=== PATIENT | female | born 1985 | race Caucasian/White ===

== ENCOUNTER 2016-06-15 10:25 | Emergency (ER) | payer SELFPAY ==
--- NOTE | 2016-06-15 10:41 | ER Document Report ---
ED Medical Screen (RME) - General Chief Complaint: Vaginal Discharge Stated Complaint: IUD CONCERNS Notes: Patient says that she is having "issues" with her IUD. She is having some spotting as well as discharge and wishes to have the IUD removed. She has a 5 year IUD placed in 2013. Was seen here in January for similar problems. Patient says the IUD string is no longer visible. Has some urinary frequency. No fevers. On no regular prescription medications. TRAVEL OUTSIDE OF THE [place] IN LAST 30 DAYS: No - Related Data Allergies/Adverse Reactions: ondansetron HCl [From Zofran] Allergy (Verified 06/15/16 10:26) Penicillins Allergy (Verified 06/15/16 10:26) Tetanus Vaccines and Toxoid [Tetanus] Allergy (Verified 06/15/16 10:26) Past Medical History Renal/ Medical History: Reports: Hx Ovarian Cysts, Hx Pelvic Inflammatory Disease. Denies: Hx Peritoneal Dialysis Past Surgical History: Reports: Hx Dilation and Curettage - Immunizations Immunizations up to date: Yes Hx Diphtheria, Pertussis, Tetanus Vaccination: Yes
[2016-06-15 11:08] LABS: APPEARANCE,URINE CLEAR; BILIRUBIN,URINE NEGATIVE (NEGATIVE); GLUCOSE, URINE NEGATIVE (NEGATIVE); KETONES,URINE NEGATIVE (NEGATIVE); LEUKOCYTE ESTERASE,URINE NEGATIVE (NEGATIVE); NITRITE,URINE NEGATIVE (NEGATIVE); PROTEIN,URINE NEGATIVE (NEGATIVE); URINE SPECIFIC GRAVITY 1.016; UROBILINOGEN,URINE NEGATIVE mg/dL (<2.0)
--- NOTE | 2016-06-15 11:46 | ER Document Report ---
ED GI/ - General Mode of Arrival: Ambulatory Information source: Patient TRAVEL OUTSIDE OF THE [place] IN LAST 30 DAYS: No - HPI Patient complains to provider of: Abdominal pain, Vaginal bleeding - "spotting" , Vaginal discharge - white and thick, Vaginal pain - "cramping" Onset: Other - 2 months ago Location: Vaginal Vaginal bleeding (Compared to normal period): Spotting Associated symptoms: Other - see notes above <MARIA ELENA HIRSCH - Last Filed: 06/15/16 13:33> <AMBROSIO THACKER - Last Filed: 06/15/16 15:53> - General Chief Complaint: Vaginal Discharge Stated Complaint: IUD CONCERNS Notes: 30 year old female presents to the ED complaining of abdominal pain, distention , vaginal spotting, cramping, and discharge (white and thick) that has been present for the past 2 months secondary to a problems related to her IUD. Patient reports that she had her first IUD in 2006 and did not have a problem for the 7 years that she had it. Patient elected to change the IUD for a 5 year device and reports vaginal bleeding for 6-8 months following the implant. Patient reports that the first IUD had "hormones" while the new one does not. Patient states that she can no longer feel the string of the IUD and reports that she does not have a live hanger to follow up with. Patient denies any fever. Patient additionally expresses concern over her gallbladder and reports that she had a bile duct obstruction (secondary to gallstones) that was emergently removed, but states that she still has her gallbladder and is causing her to have bouts of nausea and discomfort regularly. Patient wants to electively have her gallbladder removed. (MARIA ELENA HIRSCH) - Related Data Allergies/Adverse Reactions: amoxicillin Allergy (Verified 06/15/16 11:34) codeine Allergy (Verified 06/15/16 15:34) ondansetron HCl [From Zofran] Allergy (Verified 06/15/16 10:26) Penicillins Allergy (Verified 06/15/16 10:26) Tetanus Vaccines and Toxoid [Tetanus] Allergy (Verified 06/15/16 10:26) Past Medical History - General Information source: Patient - Social History Smoking Status: Current Every Day Smoker Chew tobacco use (# tins/day): No Frequency of alcohol use: None Drug Abuse: None Family History: Reviewed & Not Pertinent Patient has suicidal ideation: No Patient has homicidal ideation: No Renal/ Medical History: Reports: Hx Ovarian Cysts, Hx Pelvic Inflammatory Disease. Denies: Hx Peritoneal Dialysis GI Medical History: Reports: Other - cholelithiasis Past Surgical History: Reports: Hx Abdominal Surgery - removal of gallstone that was obstructing patient's bile duct, Hx Dilation and Curettage - Immunizations Immunizations up to date: Yes Hx Diphtheria, Pertussis, Tetanus Vaccination: Yes <MARIA ELENA HIRSCH - Last Filed: 06/15/16 13:33> Review of Systems - Review of Systems Constitutional: No symptoms reported. denies: Fever EENT: No symptoms reported Cardiovascular: No symptoms reported Respiratory: No symptoms reported Gastrointestinal: See HPI, Abdomen distended, Abdominal pain Genitourinary: No symptoms reported Female Genitourinary: See HPI, Vaginal discharge - white and thick, Vaginal bleeding - "spotting", Other - vaginal cramping Musculoskeletal: No symptoms reported Skin: No symptoms reported Hematologic/Lymphatic: No symptoms reported Neurological/Psychological: No symptoms reported -: Yes All other systems reviewed and negative <MARIA ELENA HIRSCH - Last Filed: 06/15/16 13:33> Physical Exam - General General appearance: Alert In distress: None - HEENT Head: Normocephalic, Atraumatic Eyes: Normal Extraocular movements intact: Yes Pupils: PERRL - Respiratory Respiratory status: No respiratory distress Breath sounds: Normal - Cardiovascular Rhythm: Regular Heart sounds: Normal auscultation - Abdominal Inspection: Normal Tenderness: Nontender - Genitourinary External exam: Normal Speculum exam: Vaginal discharge - white mucus, Other - Mild friability. IUD string is not visualized. Bimanuel exam: Other - Uterus is retroflexed - Back Back: Normal - Extremities General upper extremity: Normal inspection, Normal ROM General lower extremity: Normal inspection, Normal ROM - Neurological Neuro grossly intact: Yes Cognition: Normal Orientation: AAOx4 Maciej Coma Scale Eye Opening: Spontaneous [place] Coma Scale Verbal: Oriented [place] Coma Scale Motor: Obeys Commands Maciej Coma Scale Total: 15 Speech: Normal - Psychological Associated symptoms: Normal affect, Normal mood - Skin Skin Temperature: Warm Skin Moisture: Dry Skin Color: Normal <MARIA ELENA HIRSCH - Last Filed: 06/15/16 13:33> Course - Consults Grocery Specialist Time consulted: 13:28 <MARIA ELENA HIRSCH - Last Filed: 06/15/16 13:33> - Diagnostic Test Radiology reviewed: Image reviewed, Reports reviewed <AMBROSIO THACKER - Last Filed: 06/15/16 15:53> - Diagnostic Test Radiology results interpreted by me: 06/15/16 13:26 Appears that the IUD has migrated into the pelvis further. I have placed a call into Dr. Min Barrios on-call for [employer] as she does not currently have a physician. 06/15/16 13:28 (AMBROSIO THACKER) - Consults Grocery Specialist Reason for consultation: 06/15/16 13:28 Grocery Specialist was called to paged Dr. Barrios salon manager for OB. (MARIA ELENA HIRSCH) Discharge <MARIA ELENA HIRSCH - Last Filed: 06/15/16 13:33> <AMBROSIO THACKER - Last Filed: 06/15/16 15:53> - Discharge Clinical Impression: Pelvic pain, IUD mechanical complication Condition: Good Disposition: HOME, SELF-CARE Instructions: Abdominal Pain ([facility]) Additional Instructions: Call tomorrow to arrange follow-up for IUD removal. Return for fever or worsening otherwise. I would suggest to go on and call a general surgeon regarding your gallbladder issues as well. Please see listed below. Prescriptions: Acetaminophen with Codeine [Tylenol #3 Tablet] 1 each PO Q4HP PRN #14 tablet PRN Reason: Tramadol HCl 50 mg PO Q6HP PRN #14 tablet PRN Reason: Naproxen Sodium [Anaprox Ds] 550 mg PO BID PRN #20 tablet PRN Reason: For Pain Forms: Return to Work Referrals: LOCO BARRIOS MD [ACTIVE STAFF] - Follow up tomorrow SAMMIE DRAKE MD [ACTIVE STAFF] - Follow up as needed Scribe Attestation: 06/15/16 14:51 I personally performed the services described in the documentation, reviewed and edited the documentation which was dictated to the scribe in my presence, and it accurately records my words and actions. (AMBROSIO THACKER) Scribe Documentation - Scribe Written by Scribe:: Javier Nicolas, 06/15/2016 1203 acting as scribe for :: Shanda <MARIA ELENA HIRSCH - Last Filed: 06/15/16 13:33>
[2016-06-15] MEDS ORDERED: IBUPROFEN 600 MG TABLET PO ONE (11:51)
[2016-06-15] MEDS ORDERED: HYDROCODONE/ACETAMINOPHEN 10-325 MG TABLET PO ONE (11:51)
[2016-06-15 12:30] LABS: CHLAM PCR NOT DETECTED (NOT DETECT)
[2016-06-15 16:03] VITALS: BP 107/66
== END 2016-06-15 15:59 | disposition home or self-care (01) ==
LOC: ER 10:25
DX: T83.32XA Displacement of intrauterine contraceptive device, initial encounter (principal); R10.2 Pelvic and perineal pain; N89.8 Other specified noninflammatory disorders of vagina; R10.9 Unspecified abdominal pain; R14.0 Abdominal distension (gaseous); F17.200 Nicotine dependence, unspecified, uncomplicated
CPT/HCPCS: 74000; 81001; 81025; 87491; 87591; 99284

== ENCOUNTER 2016-06-17 13:37 | Emergency (ER) | payer SELFPAY ==
[2016-06-17 13:59] VITALS: BP 121/74
--- NOTE | 2016-06-17 15:02 | ER Document Report ---
ED Medical Screen (RME) - General Chief Complaint: Abdominal Pain Stated Complaint: ABDOMINAL PAIN Notes: The patient is a 30-year-old female who presents with increasing pelvic pain. She was seen in the ER yesterday and told that her IUD is migrating into her abdomen. She was supposed to see an OB yesterday, but this did not happen. She does not have insurance and cannot follow up as an outpatient. She spoke to case management and was told to come back to the ER for a OB consult. Denies nausea, vomiting, vaginal discharge, fevers, diarrhea, constipation, dysuria or hematuria. TRAVEL OUTSIDE OF THE [place] IN LAST 30 DAYS: No - Related Data Allergies/Adverse Reactions: amoxicillin Allergy (Verified 06/15/16 11:34) codeine Allergy (Verified 06/15/16 15:34) ondansetron HCl [From Zofran] Allergy (Verified 06/15/16 10:26) Penicillins Allergy (Verified 06/15/16 10:26) Tetanus Vaccines and Toxoid [Tetanus] Allergy (Verified 06/15/16 10:26) Past Medical History Renal/ Medical History: Reports: Hx Ovarian Cysts, Hx Pelvic Inflammatory Disease. Denies: Hx Peritoneal Dialysis Past Surgical History: Reports: Hx Abdominal Surgery - removal of gallstone that was obstructing patient's bile duct, Hx Dilation and Curettage - Immunizations Immunizations up to date: Yes Hx Diphtheria, Pertussis, Tetanus Vaccination: Yes Physical Exam - Vital signs Vitals: Temp Pulse Resp BP Pulse Ox 98.3 F 94 14 121/74 100 06/17/16 13:53 06/17/16 13:53 06/17/16 13:53 06/17/16 13:53 06/17/16 13:53 Course - Vital Signs Vital signs: Temp Pulse Resp BP Pulse Ox 98.3 F 94 14 121/74 100 06/17/16 13:53 06/17/16 13:53 06/17/16 13:53 06/17/16 13:53 06/17/16 13:53
[2016-06-17] MEDS ORDERED: HYDROCODONE/ACETAMINOPHEN 5-325 MG TABLET PO ONE (15:09)
[2016-06-17 16:04] LABS: ABSOLUTE BASOPHILS # (AUTO) 0.1 10^3/uL (0.0-0.2); ABSOLUTE EOSINOPHILS # (AUTO) 0.1 10^3/uL (0.0-0.6); ABSOLUTE LYMPHOCYTES (AUTO) 1.8 10^3/uL (0.5-4.7); ABSOLUTE MONOCYTES (AUTO) 0.3 10^3/uL (0.1-1.4); ABSOLUTE NEUT (AUTO) 4.7 10^3/uL (1.7-8.2); BASOPHILS % (AUTO) 0.8 % (0-2); HEMATOCRIT 39.2 % (36.0-47.0); HEMOGLOBIN 13.6 g/dL (12.0-15.5); HGB HCT DIFFERENCE 1.6; LYMPHOCYTES % (AUTO) 25.7 % (13-45); MEAN CORPUSCULAR HEMOGLOBIN 31.2 pg (27.0-33.4); MEAN CORPUSCULAR HGB CONC 34.7 g/dL (32.0-36.0); MEAN CORPUSCULAR VOLUME 90 fl (80-97); MONOCYTES % (AUTO) 4.7 % (3-13); RED BLOOD COUNT 4.37 10^6/uL (3.72-5.28); RED CELL DISTRIBUTION WIDTH 11.9 % (11.5-14.0); SEGMENTED NEUTROPHILS % (AUTO) 67.8 % (42-78)
[2016-06-17 16:19] LABS: APPEARANCE,URINE SLIGHTLY-CLOUDY; BILIRUBIN,URINE NEGATIVE (NEGATIVE); GLUCOSE, URINE NEGATIVE (NEGATIVE); KETONES,URINE NEGATIVE (NEGATIVE); LEUKOCYTE ESTERASE,URINE NEGATIVE (NEGATIVE); NITRITE,URINE NEGATIVE (NEGATIVE); PROTEIN,URINE 30 mg/dL (NEGATIVE); URINE SPECIFIC GRAVITY 1.011; UROBILINOGEN,URINE NEGATIVE mg/dL (<2.0)
[2016-06-17 16:29] LABS: ANION GAP 12 (5-19); BLOOD UREA NITROGEN 9 mg/dL (7-20); CALCIUM 9.3 mg/dL (8.4-10.2); CARBON DIOXIDE 25 mmol/L (22-30); CHLORIDE 106 mmol/L (98-107); CREATININE RESULT 0.61 mg/dL (0.52-1.25); GLUCOSE 90 mg/dL (75-110); POTASSIUM 4.1 mmol/L (3.6-5.0)
--- NOTE | 2016-06-17 16:42 | ER Document Report ---
ED GI/ - General Chief Complaint: Abdominal Pain Stated Complaint: ABDOMINAL PAIN Time seen by provider: 16:42 Mode of Arrival: Ambulatory Information source: Patient Notes: 30-year-old female presents to ED for increasing pelvic pain. She states she was seen in emergency room on Wednesday and told that her IUD was at migraine into her abdomen and she supposed to have an OB see her yesterday but this she states did not happen she did not see anyone TRAVEL OUTSIDE OF THE [place] IN LAST 30 DAYS: No - HPI Patient complains to provider of: Pelvic pain, Vaginal discharge Onset: Other - Chronic she states since her IUD was put in to get Timing/Duration: Intermittent Quality of pain: Cramping, Pressure, Sharp Severity at maximum: Moderate Severity in ED: Moderate Pain Level: 3 Location: Pelvis Vaginal bleeding (Compared to normal period): None Associated symptoms: Other - Complaints of pelvic pain and problems with her IUD Exacerbated by: Movement, Walking Relieved by: Denies Similar symptoms previously: Yes Recently seen / treated by doctor: Yes - Related Data Allergies/Adverse Reactions: amoxicillin Allergy (Verified 06/15/16 11:34) codeine Allergy (Verified 06/15/16 15:34) ondansetron HCl [From Zofran] Allergy (Verified 06/15/16 10:26) Penicillins Allergy (Verified 06/15/16 10:26) Tetanus Vaccines and Toxoid [Tetanus] Allergy (Verified 06/15/16 10:26) Past Medical History - General Information source: Patient - Social History Smoking Status: Current Every Day Smoker Cigarette use (# per day): Yes - 5 or 6 a day Chew tobacco use (# tins/day): No Smoking Education Provided: Yes - less than 2 minutes Frequency of alcohol use: None Drug Abuse: None Lives with: Spouse/Significant other Family History: CAD, COPD, DM, Hyperlipidemia, Hypertension, Malignancy, Thyroid Disfunction Patient has suicidal ideation: No Patient has homicidal ideation: No - Past Medical History Cardiac Medical History: Reports: None Pulmonary Medical History: Reports: None EENT Medical History: Reports: None Neurological Medical History: Reports: None Endocrine Medical History: Reports: None Renal/ Medical History: Reports: Hx Ovarian Cysts, Hx Pelvic Inflammatory Disease Malignancy Medical History: Reports: None GI Medical History: Reports: None Musculoskeltal Medical History: Reports None Skin Medical History: Reports None Psychiatric Medical History: Reports: None Traumatic Medical History: Reports: None Infectious Medical History: Reports: None Past Surgical History: Reports: Hx Abdominal Surgery - removal of gallstone that was obstructing patient's bile duct, Hx Dilation and Curettage - Immunizations Immunizations up to date: Yes Hx Diphtheria, Pertussis, Tetanus Vaccination: Yes Physical Exam - Vital signs Vitals: Temp Pulse Resp BP Pulse Ox 98.3 F 94 14 121/74 100 06/17/16 13:53 06/17/16 13:53 06/17/16 13:53 06/17/16 13:53 06/17/16 13:53 Course - Re-evaluation Re-evalutation: 06/17/16 17:29 Discussed ultrasound and labs with patient written report of ultrasound and labs given to patient we'll discharge patient home - Vital Signs Vital signs: Temp Pulse Resp BP Pulse Ox 98.3 F 94 18 121/74 100 06/17/16 13:53 06/17/16 13:53 06/17/16 16:25 06/17/16 13:53 06/17/16 13:53 - Laboratory Result Diagrams: 06/17/16 15:40 06/17/16 15:40 Laboratory results interpreted by me: 06/17/16 15:40 Urine Protein 30 H Urine Ascorbic Acid 20 H - Diagnostic Test Radiology reviewed: Image reviewed, Reports reviewed Discharge - Discharge Clinical Impression: Pelvic pain, Yeast vaginitis Condition: Stable Disposition: HOME, SELF-CARE Instructions: [facility] Additional Instructions: PELVIC PAIN: There are many causes of pain in the pelvic area. The cause could be the tubes, ovaries, uterus, intestines, appendix, pelvic muscles and connective tissue, or the urinary tract. The cause of your pelvic pain is not clear. However, it seems safe to treat you outside the hospital. If the pain sounds like a temporary problem, we sometimes wait to see if it goes away. Other patients may need additional tests, such as pelvic ultrasound or cultures. Conditions may change. Call us or come back for reexamination if any problems occur, such as: (1) Pain that becomes more severe, steady, or becomes concentrated in one specific area. Also, pain that is more severe with movement or coughing. (2) Vomiting that persists or becomes more frequent. (3) Blood in the vomitus, urine, or bowel movements. Blood in the stool may have a tarry or black appearance. (4) Shaking chills or fever greater than 100 degrees. (5) The abdomen becomes more distended or swollen. (6) Bowel movements cease. (7) Heavy vaginal bleeding. VAGINAL YEAST INFECTION: You have evidence of a yeast infection -- called "slade." A vaginal yeast infection often causes itching and discharge. While not dangerous, it can be very unpleasant. A yeast infection often follows the use of powerful antibiotics. It is more likely to occur in diabetics. The treatment now is usually a single pill of Diflucan, but also an antifungal cream or suppository may be used for a few days. You do not need to avoid sexual intercourse. Recurrences are common. You can make a recurrence less likely by wearing cotton underwear and avoiding tight clothing. For mild recurrences, you can try [id number] creams or suppositories that are made specifically for yeast. If the symptoms do not resolve, you should follow up for re-examination. Sometimes treatment of the sexual partner is necessary if infections are recurrent. FLUCONAZOLE: Fluconazole (Diflucan) is an antifungal drug. It is useful for serious fungal infections, but is also excellent for oral or vaginal yeast infections. Diflucan interacts with some medicines. This is a concern if you are taking anticoagulants (such as Coumadin), phenytoin (Dilantin), cyclosporin, or oral hypoglycemics (such as tolbutamide, Orinase, glipizide, Glucotrol, glyburide, DiaBeta, Glynase, and Micronase). Be sure the doctor knows if you are taking one of these medicines. We don't know how Diflucan affects . If you are planning to become , discuss this with your doctor. Diflucan has few side effects. Minor side effects may include nausea, headache, or diarrhea. Call the doctor if you develop a skin rash, shortness of breath, or other new symptoms. FOLLOW-UP CARE: If you have been referred to a physician for follow-up care, call the physician s office for an appointment as you were instructed or within the next two days. If you experience worsening or a significant change in your symptoms, notify the physician immediately or return to the Emergency Department at any time for re-evaluation. Prescriptions: Fluconazole [Diflucan] 150 mg PO ONCE PRN #1 tablet PRN Reason: Forms: Smoking Cessation Education
[2016-06-17] MEDS ORDERED: FLUCONAZOLE 100 MG TABLET PO ONE (18:08)
== END 2016-06-17 18:16 | disposition home or self-care (01) ==
LOC: ER 13:37
DX: R10.2 Pelvic and perineal pain (principal); B37.3 Candidiasis of vulva and vagina; F17.210 Nicotine dependence, cigarettes, uncomplicated; Z97.5 Presence of (intrauterine) contraceptive device; Z88.0 Allergy status to penicillin; Z88.6 Allergy status to analgesic agent; Z88.7 Allergy status to serum and vaccine
CPT/HCPCS: 36415; 76856; 80048; 81001; 85025; 87210; 99284

== ENCOUNTER 2016-06-20 10:16 | Emergency (ER) | payer SELFPAY ==
[2016-06-20] MEDS ORDERED: LIDOCAINE 1% INJ-PF (10 MG/ML) 30 ML SDV INJ ONE (10:41)
--- NOTE | 2016-06-20 11:10 | ER Document Report ---
ED General - General Chief Complaint: Cyst Stated Complaint: POSSIBLE CYST Mode of Arrival: Ambulatory Information source: Patient Notes: 30-year-old female presents with complaints of a cyst on antibiotics. Patient denies any fevers or chills denies any other concerns denies any similar episodes notes her father had a pilonidal cyst that she has one as well TRAVEL OUTSIDE OF THE [place] IN LAST 30 DAYS: No - HPI Onset: Last week Onset/Duration: Persistent Quality of pain: Achy Severity: Mild Pain Level: 1 Associated symptoms: Other Exacerbated by: Sitting Relieved by: Denies Similar symptoms previously: No Recently seen / treated by doctor: No - Related Data Allergies/Adverse Reactions: amoxicillin Allergy (Verified 06/20/16 10:56) codeine Allergy (Verified 06/20/16 10:56) ondansetron HCl [From Zofran] Allergy (Verified 06/15/16 10:26) Penicillins Allergy (Verified 06/20/16 10:56) Tetanus Vaccines and Toxoid [Tetanus] Allergy (Verified 06/20/16 10:56) Past Medical History - Social History Smoking Status: Current Every Day Smoker Cigarette use (# per day): Yes Chew tobacco use (# tins/day): No Smoking Education Provided: No Frequency of alcohol use: None Drug Abuse: None Family History: CAD, COPD, DM, Hyperlipidemia, Hypertension, Malignancy, Thyroid Disfunction Patient has suicidal ideation: No Patient has homicidal ideation: No Renal/ Medical History: Reports: Hx Ovarian Cysts, Hx Pelvic Inflammatory Disease. Denies: Hx Peritoneal Dialysis Past Surgical History: Reports: Hx Abdominal Surgery - removal of gallstone that was obstructing patient's bile duct, Hx Dilation and Curettage - Immunizations Immunizations up to date: Yes Hx Diphtheria, Pertussis, Tetanus Vaccination: No - tetanus allergy Review of Systems - Review of Systems Notes: REVIEW OF SYSTEMS: CONSTITUTIONAL : Denies fever, chills, or sweats. Denies recent illness. EENT: Denies eye, ear, throat, or mouth pain or symptoms. Denies nasal or sinus congestion or discharge. Denies throat, tongue, or mouth swelling or difficulty swallowing. CARDIOVASCULAR: Denies chest pain. Denies palpitations or racing or irregular heart beat. Denies ankle edema. RESPIRATORY: Denies cough, cold, or chest congestion. Denies shortness of breath, difficulty breathing, or wheezing. GASTROINTESTINAL: Denies abdominal pain or distention. Denies nausea, vomiting , or diarrhea. Denies blood in vomitus, stools, or per rectum. Denies black, tarry stools. Denies constipation. GENITOURINARY: Denies difficulty urinating, painful urination, burning, frequency, blood in urine, or discharge. FEMALE GENITOURINARY: Denies vaginal bleeding, heavy or abnormal periods, irregular periods. Denies vaginal discharge or odor. MUSCULOSKELETAL: Denies back or neck pain or stiffness. Denies joint pain or swelling. SKIN: Admits to cyst HEMATOLOGIC : Denies easy bruising or bleeding. LYMPHATIC: Denies swollen, enlarged glands. NEUROLOGICAL: Denies confusion or altered mental status. Denies passing out or loss of consciousness. Denies dizziness or lightheadedness. Denies headache. Denies weakness or paralysis or loss of use of either side. Denies problems with gait or speech. Denies sensory loss, numbness, or tingling. Denies seizures. PSYCHIATRIC: Denies anxiety or stress. Denies depression, suicidal ideation, or homicidal ideation. ALL OTHER SYSTEMS REVIEWED AND NEGATIVE. Dictation was performed using [employer] voice recognition software PHYSICAL EXAMINATION: GENERAL: Well-appearing, well-nourished and in no acute distress. HEAD: Atraumatic, normocephalic. EYES: Pupils equal round extraocular movements intact, conjunctiva are normal. ENT: Nares patent NECK: Normal range of motion LUNGS: No respiratory distress Musculoskeletal: Normal range of motion NEUROLOGICAL: Normal speech, normal gait. PSYCH: Normal mood, normal affect. SKIN: 1x1cm pilondal cyst erythemetous Physical Exam - Vital signs Vitals: Temp Pulse Resp BP Pulse Ox 98.1 F 95 16 122/29 L 100 06/20/16 10:19 06/20/16 10:19 06/20/16 10:19 06/20/16 10:19 06/20/16 10:19 Course - Re-evaluation Re-evalutation: 06/20/16 11:07 Liver small pilonidal cyst was noted, area was incised and drained blood with clear fluid was obtained. A very superficial laceration was made given how small discitis, patient will be given surgical follow-up. I do not believe she requires antibiotics at this time given the size of the cyst and the fact that there was no warmth or pus drainage and no signs of infectious process After performing a Medical Screening Examination, I estimate there is LOW risk for OPEN FRACTURE, COMPARTMENT SYNDROME, TENDON RUPTURE, ACUTE NEUROVASCULAR INJURY, or RETAINED FOREIGN BODY, thus I consider the discharge disposition reasonable. Also, there is no evidence or peritonitis, sepsis, or toxicity. I have reevaluated this patient multiple times and no significant life threatening changes are noted. The patient and I have discussed the diagnosis and risks, and we agree with discharging home with close follow-up with the understanding that symptoms and presentations can change. We also discussed returning to the Emergency Department immediately if new or worsening symptoms occur. We have discussed the symptoms which are most concerning (e.g., changing or worsening pain, fever, numbness, weakness, cool or painful digits) that necessitate immediate return. - Vital Signs Vital signs: Temp Pulse Resp BP Pulse Ox 98.1 F 95 16 122/29 L 100 06/20/16 10:19 06/20/16 10:19 06/20/16 10:19 06/20/16 10:06/20/16 10:19 Procedures - Incision and Drainage Upper Buttock Time completed: 11:00 Type: Simple Anesthetic type: 1% Lidocaine mL's of anesthetic: 3 Blade size: 11 I&D procedure: Betadine prep applied, Sterile dressing applied Incision Method: Incision made by scalpel Amount/type of drainage: small amount of blood with clear fluid Discharge - Discharge Clinical Impression: Pilonidal cyst Condition: Stable Disposition: HOME, SELF-CARE Additional Instructions: Pilonidal Cyst Excision Discharge Instructions Notify Physician If: a. Worsening of pain not improved with pain medication b. Fever above 101 c. Persistent bleeding or swelling at operative site 7..Follow Up Care: a. Schedule a follow up appointment with your doctor for 2 weeks. In the event of any postoperative problems or questions or you may call the office during business hours or the On-Call physician evenings and weekends at [facility]. Please follow up with the [facility] for further care
[2016-06-20 11:27] VITALS: BP 116/67
== END 2016-06-20 11:21 | disposition home or self-care (01) ==
LOC: ER 10:16
PROC: 0H98XZZ Drainage of Buttock Skin, External Approach (ICD-10-PCS; principal; 2016-06-20)
DX: L05.91 Pilonidal cyst without abscess (principal); F17.210 Nicotine dependence, cigarettes, uncomplicated
CPT/HCPCS: 99282

== ENCOUNTER 2016-06-23 19:53 | Emergency (ER) | payer SELFPAY ==
[2016-06-23 20:03] VITALS: BP 122/80
[2016-06-23] MEDS ORDERED: HYDROCODONE/ACETAMINOPHEN 5-325 MG TABLET PO ONE (20:40)
[2016-06-23] MEDS ORDERED: DEXAMETHASONE 4 MG TABLET PO ONE (20:40)
[2016-06-23] MEDS ORDERED: CLINDAMYCIN HCL 150 MG CAPSULE PO ONE (20:40)
[2016-06-23] MEDS ORDERED: DIPHENHYDRAMINE HCL 50 MG CAPSULE PO ONE (20:40)
[2016-06-23] MEDS ORDERED: FAMOTIDINE 20 MG TABLET PO ONE (20:40)
--- NOTE | 2016-06-23 20:44 | ER Document Report ---
HPI - HPI Patient complains to provider of: reddened area to thigh Onset: This morning Onset/Duration: Worse Quality of pain: Sharp Pain Level: 4 Context: Patient complains of tender red area to right posterior thigh. Patient states that initially area was pruritic but has since become very painful and no longer pruritic. Patient does not recall any type of insect bite or injury. Patient states that she was just recently here to be treated for pilonidal abscess, and states that that seems to be healing well. Patient denies any fever. Associated Symptoms: Other - Right posterior thigh pain and redness Exacerbated by: Denies Relieved by: Denies Similar symptoms previously: Yes Recently seen / treated by doctor: Yes - ROS ROS below otherwise negative: Yes Systems Reviewed and Negative: Yes All other systems reviewed and negative - CONSTITUTIONAL Constitutional: DENIES: Fever, Chills - NEURO Neurology: DENIES: Headache, Weakness - RESPIRATORY Respiratory: DENIES: Trouble Breathing, Coughing - GASTROINTESTINAL Gastrointestinal: DENIES: Nausea, Patient vomiting - REPRODUCTIVE LMP: 08/2006- Has IUD Reproductive: DENIES: : - MUSCULOSKELETAL Musculoskeletal: REPORTS: Extremity pain - Right posterior thigh - DERM Skin Color: Erythema Notes: Healing abscess to the pilonidal area Past Medical History - General Information source: Patient - Social History Smoking Status: Current Every Day Smoker Frequency of alcohol use: None Drug Abuse: None 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 Denies: Hx Peritoneal Dialysis Past Surgical History: Reports: Hx Abdominal Surgery - removal of gallstone that was obstructing patient's bile duct, Hx Dilation and Curettage - Immunizations Immunizations up to date: Yes Hx Diphtheria, Pertussis, Tetanus Vaccination: No - tetanus allergy Vertical Provider Document - CONSTITUTIONAL Agree With Documented VS: Yes Exam Limitations: No Limitations General Appearance: WD/WN, No Apparent Distress - INFECTION CONTROL TRAVEL OUTSIDE OF THE [place] IN LAST 30 DAYS: No - HEENT HEENT: Atraumatic, Normocephalic - NECK Neck: Normal Inspection, Supple - RESPIRATORY Respiratory: Breath Sounds Normal, No Respiratory Distress, Chest Non-Tender O2 Sat by Pulse Oximetry: 100 - CARDIOVASCULAR Cardiovascular: Regular Rate, Regular Rhythm, No Murmur - BACK Back: Normal Inspection - MUSCULOSKELETAL/EXTREMETIES Musculoskeletal/Extremeties: ROSE MARIE FERRARO - NEURO Level of Consciousness: Awake, Alert, Appropriate Motor/Sensory: No Motor Deficit - DERM Integumentary: Warm, Dry Adult Front & Back Diagram: 1 - Resolving pilonidal abscess 2 - Erythematous, warm raised area, no induration, no abscess Course - Re-evaluation Re-evalutation: 06/23/16 20:53 Discussed with patient concerned that her symptoms may be allergic or inflammatory response to possible insect bite, discussed treatment with Benadryl , steroids and Pepcid [id number]. Will cover with antibiotics for possible cellulitis as this is patient's primary concern today. - Vital Signs Vital signs: Temp Pulse Resp BP Pulse Ox 98.1 F 74 16 122/80 100 06/23/16 19:58 06/23/16 19:58 06/23/16 19:58 06/23/16 19:58 06/23/16 19:58 Discharge - Discharge Clinical Impression: Cellulitis Qualifiers: Site of cellulitis: extremity Site of cellulitis of extremity: lower extremity Laterality: right Qualified Code(s): L03.115 - Cellulitis of right lower limb Condition: Stable Disposition: HOME, SELF-CARE Instructions: Oral Narcotic Medication ([facility]), Cellulitis ([facility]), Clindamycin ( [facility]), Use of Diphenhydramine Additional Instructions: Return immediately for any new or worsening symptoms Followup with your primary care provider, call tomorrow to make a followup appointment You may take Benadryl and Pepcid [id number] to help with any itching Prescriptions: Clindamycin HCl [Cleocin Hcl] 300 mg PO QID #28 capsule Hydrocodone/Acetaminophen [[place] 5-325 Tablet] 1 each PO Q4 PRN #12 tablet PRN Reason: Referrals: [facility] [Provider Group] - Follow up as needed [facility] [Provider Group] - Follow up as needed
== END 2016-06-23 21:34 | disposition home or self-care (01) ==
LOC: ER 19:53
DX: L03.115 Cellulitis of right lower limb (principal); L05.01 Pilonidal cyst with abscess; F17.200 Nicotine dependence, unspecified, uncomplicated; Z97.5 Presence of (intrauterine) contraceptive device; Z88.7 Allergy status to serum and vaccine
CPT/HCPCS: 99282

== ENCOUNTER 2016-08-17 07:46 | Emergency (ER) | payer SELFPAY ==
[2016-08-17 08:03] VITALS: BP 111/75
[2016-08-17] MEDS ORDERED: NORMAL SALINE 1000 ML 1,000 ML IV ONE (08:45)
[2016-08-17] MEDS ORDERED: METOCLOPRAMIDE HCL INJ/PF 10 MG/2 ML SDV IV ONE (09:20)
[2016-08-17 09:27] LABS: ABSOLUTE EOSINOPHILS # (AUTO) 0.1 10^3/uL (0.0-0.6); ABSOLUTE LYMPHOCYTES (AUTO) 0.9 10^3/uL (0.5-4.7); ABSOLUTE MONOCYTES (AUTO) 0.9 10^3/uL (0.1-1.4); ABSOLUTE NEUT (AUTO) 4.6 10^3/uL (1.7-8.2); BASOPHILS % (AUTO) 0.3 % (0-2); EOSINOPHILS % (AUTO) 1.6 % (0-6); HEMATOCRIT 49.3 % (36.0-47.0); HEMOGLOBIN 16.1 g/dL (12.0-15.5); MEAN CORPUSCULAR HEMOGLOBIN 30.2 pg (27.0-33.4); MEAN CORPUSCULAR HGB CONC 32.8 g/dL (32.0-36.0); MEAN CORPUSCULAR VOLUME 92 fl (80-97); RED BLOOD COUNT 5.34 10^6/uL (3.72-5.28); RED CELL DISTRIBUTION WIDTH 12.1 % (11.5-14.0); SEGMENTED NEUTROPHILS % (AUTO) 70.1 % (42-78); WHITE BLOOD COUNT 6.5 10^3/uL (4.0-10.5)
[2016-08-17 09:54] LABS: ALANINE AMINOTRANSFERASE 41 U/L (9-52); ALBUMIN 4.3 g/dL (3.5-5.0); ALKALINE PHOSPHATASE 59 U/L (38-126); ANION GAP 17 (5-19); ASPARTATE AMINO TRANSFERASE 31 U/L (14-36); BILIRUBIN,DIRECT 0.3 mg/dL (0.0-0.4); BILIRUBIN,TOTAL 1.1 mg/dL (0.2-1.3); BLOOD UREA NITROGEN 15 mg/dL (7-20); CALCIUM 8.6 mg/dL (8.4-10.2); CARBON DIOXIDE 18 mmol/L (22-30); CHLORIDE 105 mmol/L (98-107); CREATININE RESULT 0.59 mg/dL (0.52-1.25); GLUCOSE 115 mg/dL (75-110); POTASSIUM 4.1 mmol/L (3.6-5.0); SODIUM 140.1 mmol/L (137-145); TOTAL PROTEIN 6.9 g/dL (6.3-8.2)
--- NOTE | 2016-08-17 10:02 | ER Document Report ---
ED General - General Chief Complaint: Nausea/Vomiting/Diarrhea Stated Complaint: VOMITING,NAUSEA Time Seen by Provider: 08/17/16 08:45 Mode of Arrival: Ambulatory Information source: Patient Notes: 30-year-old female presents with complaints of thrush on her tongue. Patient denies an immunocompromised state, notes her mother gets thrush often she uses an inhaler, patient notes she has a history of sinus tachycardia normally in 110s, denies any fevers or chills admits to decreased oral intake secondary to the pain TRAVEL OUTSIDE OF THE [place] IN LAST 30 DAYS: No - HPI Onset: Last week Onset/Duration: Persistent Quality of pain: Achy Severity: Mild Pain Level: 1 Associated symptoms: Other Exacerbated by: Food Relieved by: Denies Similar symptoms previously: Yes Recently seen / treated by doctor: No - Related Data Allergies/Adverse Reactions: amoxicillin Allergy (Verified 08/17/16 07:59) codeine Allergy (Verified 08/17/16 07:59) ondansetron HCl [From Zofran] Allergy (Verified 08/17/16 07:59) Penicillins Allergy (Verified 08/17/16 07:59) Tetanus Vaccines and Toxoid [Tetanus] Allergy (Verified 08/17/16 07:59) Past Medical History - Social History Smoking Status: Current Every Day Smoker Cigarette use (# per day): Yes Chew tobacco use (# tins/day): No Smoking Education Provided: No Frequency of alcohol use: Occasional Drug Abuse: None Family History: CAD, COPD, DM, Hyperlipidemia, Hypertension, Malignancy, Thyroid Disfunction Patient has suicidal ideation: No Patient has homicidal ideation: No Renal/ Medical History: Reports: Hx Ovarian Cysts, Hx Pelvic Inflammatory Disease. Denies: Hx Peritoneal Dialysis Past Surgical History: Reports: Hx Abdominal Surgery - removal of gallstone that was obstructing patient's bile duct, Hx Dilation and Curettage, Hx Gynecologic Surgery - D&C - Immunizations Immunizations up to date: Yes Hx Diphtheria, Pertussis, Tetanus Vaccination: No - tetanus allergy Review of Systems - Review of Systems Notes: REVIEW OF SYSTEMS: CONSTITUTIONAL : Denies fever, chills, or sweats. Denies recent illness. EENT: Admits to oral pain CARDIOVASCULAR: Denies chest pain. Denies palpitations or racing or irregular heart beat. Denies ankle edema. RESPIRATORY: Denies cough, cold, or chest congestion. Denies shortness of breath, difficulty breathing, or wheezing. GASTROINTESTINAL: Admits to decreased appetite GENITOURINARY: Denies difficulty urinating, painful urination, burning, frequency, blood in urine, or discharge. FEMALE GENITOURINARY: Denies vaginal bleeding, heavy or abnormal periods, irregular periods. Denies vaginal discharge or odor. MUSCULOSKELETAL: Denies back or neck pain or stiffness. Denies joint pain or swelling. SKIN: Denies rash, lesions or sores. HEMATOLOGIC : Denies easy bruising or bleeding. LYMPHATIC: Denies swollen, enlarged glands. NEUROLOGICAL: Weakness PHYSICAL EXAMINATION: GENERAL: Well-appearing, well-nourished and in no acute distress. HEAD: Atraumatic, normocephalic. EYES: Pupils equal round and reactive to light, extraocular movements intact, conjunctiva are normal. ENT: Thrush noted on tongue nares patent, oropharynx clear without exudates. Moist mucous membranes. NECK: Normal range of motion, supple without lymphadenopathy LUNGS: Breath sounds clear to auscultation bilaterally and equal. No wheezes rales or rhonchi. HEART: Regular rate and rhythm without murmurs ABDOMEN: Soft, nontender, nondistended abdomen. No guarding, no rebound. No masses appreciated. Female : deferred Musculoskeletal: Normal range of motion, no pitting or edema. No cyanosis. NEUROLOGICAL: Cranial nerves grossly intact. Normal speech, normal gait. Normal sensory, motor exams PSYCH: Normal mood, normal affect. SKIN: Warm, Dry, normal turgor, no rashes or lesions noted. PSYCHIATRIC: Denies anxiety or stress. Denies depression, suicidal ideation, or homicidal ideation. ALL OTHER SYSTEMS REVIEWED AND NEGATIVE. Dictation was performed using [employer] voice recognition software Physical Exam - Vital signs Vitals: Temp Pulse Resp BP Pulse Ox 97.8 F 122 H 18 111/75 98 08/17/16 07:59 08/17/16 07:59 08/17/16 07:59 08/17/16 07:59 08/17/16 07:59 Course - Re-evaluation Re-evalutation: 08/17/16 10:20 Patient will be given IV fluids control the pain 08/17/16 12:06 Patient it appears to the left prior to my discharge, I was not able to discuss diagnosis lab work or return precautions, patient was given medical screening examination, she was stable however left prior to a complete evaluation - Vital Signs Vital signs: Temp Pulse Resp BP Pulse Ox 97.8 F 122 H 18 111/75 98 08/17/16 07:59 08/17/16 07:59 08/17/16 07:59 08/17/16 07:59 08/17/16 07:59 - Laboratory Result Diagrams: 08/17/16 09:05 08/17/16 09:05 Laboratory results interpreted by me: 08/17/16 08/17/16 09:05 09:05 RBC 5.34 H Hgb 16.1 H Hct 49.3 H Monocytes % 14.0 H Carbon Dioxide 18 L Glucose 115 H Discharge - Discharge Clinical Impression: Candidiasis of mouth and esophagus, Tachycardia Condition: Stable Disposition: ELOPED
[2016-08-17] MEDS ORDERED: LIDOCAINE 2% VISCOUS SOLN 20 ML UDCUP PO ONE (10:19)
[2016-08-17 10:55] LABS: ADD HIVPANEL? NO; HIV (1 AND 2) ANTIBODY NEGATIVE (NEGATIVE)
== END 2016-08-17 11:40 | disposition left against medical advice (07) ==
LOC: ER 07:46
DX: B37.0 Candidal stomatitis (principal); B37.81 Candidal esophagitis; R63.0 Anorexia; F17.210 Nicotine dependence, cigarettes, uncomplicated; Z88.0 Allergy status to penicillin; Z88.5 Allergy status to narcotic agent; Z88.8 Allergy status to other drugs, medicaments and biological substances; Z88.7 Allergy status to serum and vaccine; R00.0 Tachycardia, unspecified; Z53.20 Procedure and treatment not carried out because of patient's decision for unspecified reasons
CPT/HCPCS: 99281; 96361; 96374; 36415; 85025; 80053; 86701; J2765; J7030

== ENCOUNTER 2016-08-22 08:56 | Emergency (ER) | payer SELFPAY ==
[2016-08-22 09:01] VITALS: BP 114/63
[2016-08-22] MEDS ORDERED: HYDROCODONE/ACETAMINOPHEN 5-325 MG TABLET PO ONE (09:18)
--- NOTE | 2016-08-22 09:21 | ER Document Report ---
HPI - HPI Patient complains to provider of: ear pain Onset: Other - 5 days Pain Level: 5 Context: Pt c/o left ear pain for the past 5 days. Patient does report green drainage from her left ear. Patient denies any recent swimming or water exposure to her ear. Associated Symptoms: Earache. denies: Fever Exacerbated by: Denies Relieved by: Denies Similar symptoms previously: No Recently seen / treated by doctor: No - ROS ROS below otherwise negative: Yes Systems Reviewed and Negative: Yes All other systems reviewed and negative - CONSTITUTIONAL Constitutional: DENIES: Fever - EENT EENT: REPORTS: Ear Pain - REPRODUCTIVE Reproductive: DENIES: : - MUSCULOSKELETAL Musculoskeletal: DENIES: Neck Pain - DERM Skin Color: Normal Skin Problems: None Past Medical History - General Information source: Patient - Social History Smoking Status: Current Every Day Smoker Frequency of alcohol use: None Drug Abuse: None Occupation: none Lives with: Family Family History: CAD, COPD, DM, Hyperlipidemia, Hypertension, Malignancy, Thyroid Disfunction Patient has suicidal ideation: No Patient has homicidal ideation: No - Medical History Medical History: Negative Renal/ Medical History: Reports: Hx Ovarian Cysts, Hx Pelvic Inflammatory Disease. Denies: Hx Peritoneal Dialysis Past Surgical History: Reports: Hx Abdominal Surgery - removal of gallstone that was obstructing patient's bile duct, Hx Dilation and Curettage, Hx Gynecologic Surgery - D&C - Immunizations Immunizations up to date: Yes Hx Diphtheria, Pertussis, Tetanus Vaccination: No - tetanus allergy Vertical Provider Document - CONSTITUTIONAL Agree With Documented VS: Yes Exam Limitations: No Limitations General Appearance: WD/WN, No Apparent Distress - INFECTION CONTROL TRAVEL OUTSIDE OF THE [place] IN LAST 30 DAYS: No - HEENT HEENT: Atraumatic, Normocephalic. negative: Pharyngeal Exudate, Pharyngeal Tenderness, Pharyngeal Erythema, Tympanic Membrane Red, Tympanic Membrane Bulging Notes: left EAC swollen and erythematous. TM able to be visualized. No mastoid tenderness or swelling. Patient does have reproducible pain with movement of left auricle. - NECK Neck: Normal Inspection, Supple. negative: Lymphadenopathy-Left, Lymphadenopathy-Right - RESPIRATORY Respiratory: Breath Sounds Normal, No Respiratory Distress O2 Sat by Pulse Oximetry: 99 - CARDIOVASCULAR Cardiovascular: Regular Rate, Regular Rhythm, No Murmur - MUSCULOSKELETAL/EXTREMETIES Musculoskeletal/Extremeties: MAEW - NEURO Level of Consciousness: Awake, Alert, Appropriate Motor/Sensory: No Motor Deficit - DERM Integumentary: Warm, Dry, No Rash Course - Vital Signs Vital signs: Temp Pulse Resp BP Pulse Ox 98.1 F 80 20 114/63 99 08/22/16 09:00 08/22/16 09:00 08/22/16 09:00 08/22/16 09:00 08/22/16 09:00 Discharge - Discharge Clinical Impression: Otitis externa Qualifiers: Otitis externa type: unspecified type Chronicity: acute Laterality: left Qualified Code(s): H60.502 - Unspecified acute noninfective otitis externa, left ear Condition: Stable Disposition: HOME, SELF-CARE Instructions: Use of Ear Drops ([facility]), Otitis Externa ([facility]), Oral Narcotic Medication ([facility]) Additional Instructions: return as needed for any new or worsening symptoms follow up with an ear nose and throat doctor for any continued problems Prescriptions: Hydrocodone/Acetaminophen [[place] 5-325 Tablet] 1 each PO Q4 PRN #15 tablet PRN Reason: Neomy Sulf/Polymyx B Sulf/Hc [Cortisporin Ear Suspension] 4 drop OT QID #1 bottle Referrals: [facility] [Provider Group] - Follow up as needed
== END 2016-08-22 09:30 | disposition home or self-care (01) ==
LOC: ER 08:56
DX: H60.502 Unspecified acute noninfective otitis externa, left ear (principal); H92.02 Otalgia, left ear; F17.200 Nicotine dependence, unspecified, uncomplicated
CPT/HCPCS: 99282

== ENCOUNTER 2016-08-23 05:30 | Emergency (ER) | payer SELFPAY ==
--- NOTE | 2016-08-23 07:28 | ER Document Report ---
ED General - General Chief Complaint: Ear Pain Stated Complaint: POSSIBLE EAR INFECTION Time Seen by Provider: 08/23/16 06:27 Mode of Arrival: Ambulatory Information source: Patient Notes: 30-year-old presents with complaints of ear pain. Patient was recently diagnosed with left otitis externa but now presents with bilateral ear pain. Patient denies any fevers or chills admits to difficulty hearing TRAVEL OUTSIDE OF THE [place] IN LAST 30 DAYS: No - HPI Onset: Last week Onset/Duration: Persistent Quality of pain: Achy Severity: Mild Pain Level: 2 Associated symptoms: Other Exacerbated by: Denies Relieved by: Denies Similar symptoms previously: Yes Recently seen / treated by doctor: Yes - Related Data Allergies/Adverse Reactions: amoxicillin Allergy (Verified 08/22/16 08:59) codeine Allergy (Verified 08/22/16 08:59) ondansetron HCl [From Zofran] Allergy (Verified 08/22/16 08:59) Penicillins Allergy (Verified 08/22/16 08:59) Tetanus Vaccines and Toxoid [Tetanus] Allergy (Verified 08/22/16 08:59) Past Medical History - Social History Smoking Status: Never Smoker Cigarette use (# per day): No Chew tobacco use (# tins/day): No Smoking Education Provided: No Family History: CAD, COPD, DM, Hyperlipidemia, Hypertension, Malignancy, Thyroid Disfunction Patient has suicidal ideation: No Patient has homicidal ideation: No Renal/ Medical History: Reports: Hx Ovarian Cysts, Hx Pelvic Inflammatory Disease. Denies: Hx Peritoneal Dialysis Past Surgical History: Reports: Hx Abdominal Surgery - removal of gallstone that was obstructing patient's bile duct, Hx Dilation and Curettage, Hx Gynecologic Surgery - D&C - Immunizations Immunizations up to date: Yes Hx Diphtheria, Pertussis, Tetanus Vaccination: No - tetanus allergy Review of Systems - Review of Systems Notes: REVIEW OF SYSTEMS: CONSTITUTIONAL : Denies fever, chills, or sweats. Denies recent illness. EENT: Bilateral ear pain CARDIOVASCULAR: Denies chest pain. Denies palpitations or racing or irregular heart beat. Denies ankle edema. RESPIRATORY: Denies cough, cold, or chest congestion. Denies shortness of breath, difficulty breathing, or wheezing. GASTROINTESTINAL: Denies abdominal pain or distention. Denies nausea, vomiting , or diarrhea. Denies blood in vomitus, stools, or per rectum. Denies black, tarry stools. Denies constipation. GENITOURINARY: Denies difficulty urinating, painful urination, burning, frequency, blood in urine, or discharge. FEMALE GENITOURINARY: Denies vaginal bleeding, heavy or abnormal periods, irregular periods. Denies vaginal discharge or odor. MUSCULOSKELETAL: Denies back or neck pain or stiffness. Denies joint pain or swelling. SKIN: Denies rash, lesions or sores. HEMATOLOGIC : Denies easy bruising or bleeding. LYMPHATIC: Denies swollen, enlarged glands. NEUROLOGICAL: Denies confusion or altered mental status. Denies passing out or loss of consciousness. Denies dizziness or lightheadedness. Denies headache. Denies weakness or paralysis or loss of use of either side. Denies problems with gait or speech. Denies sensory loss, numbness, or tingling. Denies seizures. PSYCHIATRIC: Denies anxiety or stress. Denies depression, suicidal ideation, or homicidal ideation. ALL OTHER SYSTEMS REVIEWED AND NEGATIVE. PHYSICAL EXAMINATION: GENERAL: Well-appearing, well-nourished and in no acute distress. HEAD: Atraumatic, normocephalic. EYES: Pupils equal round and reactive to light, extraocular movements intact, conjunctiva are normal. ENT: bilateral ear drainage , yellow tms intact, left external canal is swollen NECK: Normal range of motion, supple without lymphadenopathy LUNGS: Breath sounds clear to auscultation bilaterally and equal. No wheezes rales or rhonchi. HEART: Regular rate and rhythm without murmurs ABDOMEN: Soft, nontender, nondistended abdomen. No guarding, no rebound. No masses appreciated. Female : deferred Musculoskeletal: Normal range of motion, no pitting or edema. No cyanosis. NEUROLOGICAL: Cranial nerves grossly intact. Normal speech, normal gait. Normal sensory, motor exams PSYCH: Normal mood, normal affect. SKIN: Warm, Dry, normal turgor, no rashes or lesions noted. Dictation was performed using [employer] voice recognition software Physical Exam - Vital signs Vitals: Temp Pulse Resp BP Pulse Ox 97.9 F 73 18 109/70 99 08/23/16 05:34 08/23/16 05:34 08/23/16 05:34 08/23/16 05:34 08/23/16 05:34 Course - Re-evaluation Re-evalutation: 08/23/16 07:36 30 yr old female presents with otitis media , pt to be switched ot oral antibiotics and given ent follow up No signs of mastoiditis After performing a Medical Screening Examination, I estimate there is LOW risk for CENTRAL CORD SYNDROME, EPIDURAL MASS LESION, SEVERE SPINAL STENOSIS, ARTERIAL DISSECTION, MENINGITIS, or ACUTE CORONARY SYNDROME, thus I consider the discharge disposition reasonable. I have reevaluated this patient multiple times and no significant life threatening changes are noted. The patient and I have discussed the diagnosis and risks, and we agree with discharging home to follow-up on an outpatient basis with the understanding that symptoms and presentations can change. We also discussed returning to the Emergency Department immediately if new or worsening symptoms occur. We have discussed the symptoms which are most concerning (e.g., saddle anesthesia, urinary or bowel incontinence or retention, changing or worsening pain) that necessitate immediate return. - Vital Signs Vital signs: Temp Pulse Resp BP Pulse Ox 97.9 F 73 18 109/70 99 08/23/16 05:34 08/23/16 05:34 08/23/16 05:34 08/23/16 05:34 08/23/16 05:34 Discharge - Discharge Clinical Impression: Otitis externa, Otitis media Condition: Stable Disposition: HOME, SELF-CARE Instructions: Otitis Media ([facility]) Additional Instructions: Please contact the following office for an appointment tomorrow or returm immediately if there are any other concerns [facility] Address: [address] [place] [id number] Prescriptions: Azithromycin 250 mg PO ASDIR PRN #6 tablet PRN Reason: Azithromycin 500 mg PO BID #14 tablet Oxycodone HCl/Acetaminophen [Percocet 5-325 mg Tablet] 1 - 2 tab PO Q4H PRN #15 tablet PRN Reason:
[2016-08-23 07:41] VITALS: BP 110/80
== END 2016-08-23 08:02 | disposition home or self-care (01) ==
LOC: ER 05:30
DX: H66.90 Otitis media, unspecified, unspecified ear (principal); H60.90 Unspecified otitis externa, unspecified ear; H92.03 Otalgia, bilateral; Z88.0 Allergy status to penicillin; Z88.5 Allergy status to narcotic agent; Z88.8 Allergy status to other drugs, medicaments and biological substances; Z88.7 Allergy status to serum and vaccine
CPT/HCPCS: 99282

== ENCOUNTER 2016-11-22 13:07 | Emergency (ER) | payer SELFPAY ==
[2016-11-22] MEDS ORDERED: HYDROCODONE/ACETAMINOPHEN 5-325 MG TABLET PO ONE (13:55)
--- NOTE | 2016-11-22 14:26 | ER Document Report ---
HPI - HPI Patient complains to provider of: left foot injury Onset: Other Onset/Duration: Sudden Quality of pain: Throbbing Severity: Moderate Pain Level: 4 Context: Patient states she tripped injuring her left lateral foot about 2 weeks ago. Patient states she has not had it checked prior to now due to spouse's terminal illness. Patient states she has been seen here before for lower abdominal pain and problems with an IUD, but states she is not here to be seen again for this but is supposed to see a surgeon. Associated Symptoms: None Exacerbated by: Movement, Walking Relieved by: Denies Similar symptoms previously: No Recently seen / treated by doctor: No - ROS ROS below otherwise negative: Yes Systems Reviewed and Negative: Yes All other systems reviewed and negative - CONSTITUTIONAL Constitutional: DENIES: Fever - EENT EENT: DENIES: Congestion - NEURO Neurology: DENIES: Headache - CARDIOVASCULAR Cardiovascular: DENIES: Chest pain - RESPIRATORY Respiratory: DENIES: Trouble Breathing - REPRODUCTIVE Reproductive: DENIES: : - MUSCULOSKELETAL Musculoskeletal: REPORTS: Extremity pain - left foot - DERM Skin Color: Normal Skin Problems: None Past Medical History - General Information source: Patient - Social History Smoking Status: Never Smoker Frequency of alcohol use: None Drug Abuse: None Lives with: Family Family History: CAD, COPD, DM, Hyperlipidemia, Hypertension, Malignancy, Thyroid Disfunction Renal/ Medical History: Reports: Hx Ovarian Cysts, Hx Pelvic Inflammatory Disease Psychiatric Medical History: Reports: Hx Anxiety, Hx Depression, Other - insomnia Past Surgical History: Reports: Hx Abdominal Surgery - removal of gallstone that was obstructing patient's bile duct, Hx Dilation and Curettage, Hx Gynecologic Surgery - D&C - Immunizations Immunizations up to date: Yes Hx Diphtheria, Pertussis, Tetanus Vaccination: No - tetanus allergy Vertical Provider Document - CONSTITUTIONAL Agree With Documented VS: Yes Exam Limitations: No Limitations General Appearance: WD/WN, No Apparent Distress Notes: Patient tearful as she discussed the recent of her spouse. - INFECTION CONTROL TRAVEL OUTSIDE OF THE [place] IN LAST 30 DAYS: No - HEENT HEENT: Atraumatic, Normocephalic - RESPIRATORY Respiratory: Breath Sounds Normal, No Respiratory Distress O2 Sat by Pulse Oximetry: 100 - CARDIOVASCULAR Cardiovascular: Regular Rate, Regular Rhythm - MUSCULOSKELETAL/EXTREMETIES Musculoskeletal/Extremeties: Tender, Edema - left lateral foot. negative: Eccymosis - NEURO Level of Consciousness: Awake, Alert, Appropriate - DERM Integumentary: Warm, Dry, No Rash Course - Re-evaluation Re-evalutation: 11/22/16 14:32 X-rays negative and discussed with patient. - Vital Signs Vital signs: Temp Pulse Resp BP Pulse Ox 98.1 F 87 16 114/74 100 11/22/16 13:12 11/22/16 13:12 11/22/16 13:12 11/22/16 13:12 11/22/16 13:12 Procedures - Immobilization Left Foot Pre-Proc Neuro Vasc Exam: Normal Immobilizer type: Post-op shoe Performed by: PCT Post-Proc Neuro Vasc Exam: Normal Alignment checked and good: Yes Discharge - Discharge Clinical Impression: Sprain of left foot Qualifiers: Encounter type: initial encounter Qualified Code(s): S93.602A - Unspecified sprain of left foot, initial encounter Condition: Good Disposition: ADMITTED INPATIENT Instructions: Ice Packs ([facility]), Oral Narcotic Medication ([facility]), Sprain ([facility]) Additional Instructions: Ice and elevate foot Ibuprofen as needed for pain Follow-up with your doctor for recheck if not better in 1 week. Although you did not want to be seen for abdominal pain today, return if symptoms worsen prior to seeing your doctor. Return as needed Prescriptions: Hydrocodone/Acetaminophen [[place] 5-325 mg Tablet] 1 tab PO PRN PRN #15 tablet PRN Reason:
--- NOTE | 2016-11-22 14:29 | RADIOLOGY REPORT (SQ) ---
EXAM DESCRIPTION: FOOT LEFT COMPLETE COMPLETED DATE/TIME: 11/22/2016 2:16 pm REASON FOR STUDY: injury COMPARISON: None. NUMBER OF VIEWS: Three views. TECHNIQUE: AP, lateral and oblique radiographic images acquired of the left foot. LIMITATIONS: None. FINDINGS: MINERALIZATION: Normal. BONES: No acute fracture or dislocation. No worrisome bone lesions. JOINTS: No effusions. SOFT TISSUES: No soft tissue swelling. No foreign body. OTHER: No other significant finding. IMPRESSION: NEGATIVE STUDY OF THE LEFT FOOT. NO RADIOGRAPHIC EVIDENCE OF ACUTE INJURY. TECHNICAL DOCUMENTATION: JOB ID: [id number] [email or web address] All Rights Reserved
[2016-11-22 14:48] VITALS: BP 101/58
== END 2016-11-22 14:45 | disposition home or self-care (01) ==
LOC: ER 13:07
DX: S93.602A Unspecified sprain of left foot, initial encounter (principal); R10.30 Lower abdominal pain, unspecified; W18.40XA Slipping, tripping and stumbling without falling, unspecified, initial encounter
CPT/HCPCS: 99283

== ENCOUNTER 2016-11-24 14:32 | Emergency (ER) | payer SELFPAY ==
[2016-11-24 15:59] LABS: APPEARANCE,URINE SLIGHTLY-CLOUDY; BILIRUBIN,URINE NEGATIVE (NEGATIVE); GLUCOSE, URINE NEGATIVE (NEGATIVE); KETONES,URINE NEGATIVE (NEGATIVE); LEUKOCYTE ESTERASE,URINE NEGATIVE (NEGATIVE); NITRITE,URINE NEGATIVE (NEGATIVE); PROTEIN,URINE 100 mg/dL (NEGATIVE); URINE SPECIFIC GRAVITY 1.019; UROBILINOGEN,URINE NEGATIVE mg/dL (<2.0)
[2016-11-24] MEDS ORDERED: LIDOCAINE 1% INJ-PF (10 MG/ML) 30 ML SDV INJ ONE (16:19)
[2016-11-24] MEDS ORDERED: SULFAMETHOXAZOLE/TRIMETHOPRIM 800-160 MG TABLET PO ONE (16:20)
--- NOTE | 2016-11-24 16:24 | ER Document Report ---
ED GI/ - General Chief Complaint: Abscess Stated Complaint: PELVIC PAIN Time Seen by Provider: 11/24/16 15:35 Information source: Patient Notes: 30-year-old female who presents today with what she states is some 2-3 day history of some greenish vaginal discharge with some lower abdominal cramping. She also states she has an IUD in place but has not been able to visualize the string. Patient states she has no dysuria, nausea, vomiting, or fevers. Patient also states the development over the night of a small left left labial "abscess" that she has had many times in the past. TRAVEL OUTSIDE OF THE [place] IN LAST 30 DAYS: No - HPI Patient complains to provider of: Pelvic pain Onset: Other - See above Timing/Duration: Gradual Quality of pain: Achy Severity at maximum: Mild Severity in ED: Mild Pain Level: 1 Location: Suprapubic Vaginal bleeding (Compared to normal period): None Sexual history: Inactive Associated symptoms: Other - See above Exacerbated by: Denies Relieved by: Denies - Related Data Allergies/Adverse Reactions: amoxicillin Allergy (Verified 11/24/16 14:48) codeine Allergy (Verified 11/24/16 14:48) ondansetron HCl [From Zofran] Allergy (Verified 11/24/16 14:48) Penicillins Allergy (Verified 11/24/16 14:48) Tetanus Vaccines and Toxoid [Tetanus] Allergy (Verified 11/24/16 14:48) Past Medical History - General Information source: Patient - Social History Smoking Status: Current Every Day Smoker Cigarette use (# per day): No Chew tobacco use (# tins/day): No Smoking Education Provided: No Frequency of alcohol use: None Drug Abuse: None Family History: CAD, COPD, DM, Hyperlipidemia, Hypertension, Malignancy, Thyroid Disfunction Patient has suicidal ideation: No Patient has homicidal ideation: No Renal/ Medical History: Reports: Hx Ovarian Cysts, Hx Pelvic Inflammatory Disease. Denies: Hx Peritoneal Dialysis Psychiatric Medical History: Reports: Hx Anxiety, Hx Depression Past Surgical History: Reports: Hx Abdominal Surgery - removal of gallstone that was obstructing patient's bile duct, Hx Dilation and Curettage, Hx Gynecologic Surgery - D&C - Immunizations Immunizations up to date: Yes Hx Diphtheria, Pertussis, Tetanus Vaccination: No - tetanus allergy Review of Systems - Review of Systems Constitutional: denies: Fever Gastrointestinal: denies: Diarrhea, Nausea, Vomiting, Black stools Genitourinary: denies: Dysuria Musculoskeletal: denies: Leg swelling Skin: Other - no hives. denies: Rash Neurological/Psychological: Other - no slurred speech -: Yes All other systems reviewed and negative Physical Exam - Vital signs Vitals: Temp Pulse Resp BP Pulse Ox 98.4 F 80 14 132/80 H 99 11/24/16 14:48 11/24/16 14:48 11/24/16 14:48 11/24/16 14:48 11/24/16 14:48 Notes: Reviewed vital signs and nursing note as charted by RN. CONSTITUTIONAL: Alert and oriented and responds appropriately to questions. Well -appearing; well-nourished CARD: Regular rate and rhythm; no murmurs, no clicks, no rubs, no gallops; symmetric distal pulses RESP: Normal chest excursion without splinting or tachypnea; breath sounds clear and equal bilaterally ABD/GI: Normal bowel sounds; non-distended; soft, very minimally tender to the suprapubic region. No rebound or guarding BACK: The back appears normal and is non-tender to palpation, there is no CVA tenderness EXT: Normal ROM in all joints; non-tender to palpation; no cyanosis, no effusions, no edema SKIN: Normal color for age and race; warm; dry; good turgor; capillary refill < 2 seconds; no acute lesions noted NEURO: Moves all extremities equally; Motor and sensory function intact PSYCH: The patient's mood and manner are appropriate. Grooming and personal hygiene are appropriate. Course - Re-evaluation Re-evalutation: 11/24/16 16:23 With online activist present I performed a superficial pelvic examination and see a small area to the left lateral labia majora that is indurated, fluctuant, and tender consistent with an abscess. I will also perform a pelvic examination with cultures and a urinalysis and test. I will also order a KUB to evaluate the location of the possible IUD. I do not believe the patient requires any other laboratory work imaging at this time. 11/24/16 17:09 KUB shows the IUD in the pelvic region. On pelvic examination, patient has the external lesion as described above. There are no obvious internal lesions. There are the 2 strings emanating from the cervical os presumably from the IUD. Patient is having pelvic pain and discharge. She is requesting that we remove the IUD. Given the possibility of a pelvic infection, I believe this is reasonable. I have removed the IUD per the procedure note below. I have also performed an incision and drainage of the left small labial abscess according to the procedure note. FOREIGN BODY PROCEDURE NOTE: Using ring forceps I applied gentle traction downward pressure on the IUD strings emanating from the cervical os. The IUD was easily removed. 11/24/16 17:51 Inappropriate vital signs were placed on the patient incorrectly. These have been deleted. Reassessment vital signs as recorded. 11/24/16 18:38 Patient states that she can no longer stay at this facility secondary to a call from her mom about her father having a heart attack. I have expressed my condolences and understand her need to leave at this time despite not receiving the ultrasound. I have invited her to return here at any time or to see an outside facility. Will provide the Bactrim secondary to her abscess. - Vital Signs Vital signs: Temp Pulse Resp BP Pulse Ox 98.6 F 57 L 16 108/65 99 11/24/16 17:54 11/24/16 17:54 11/24/16 14:50 11/24/16 17:54 11/24/16 17:54 - Laboratory Laboratory results interpreted by me: 11/24/16 15:45 Urine Protein 100 H Procedures - Incision and Drainage Left Labia Time completed: 17:11 Type: Simple Anesthetic type: 1% Lidocaine Blade size: 11 I&D procedure: Chlorprep applied Incision Method: Incision made by scalpel Amount/type of drainage: minimal Discharge - Discharge Clinical Impression: Labial abscess Condition: Good Instructions: Trimethoprim-Sulfa ([facility]) Additional Instructions: Please make sure that she follow-up here or at an outside facility for further evaluation of your pelvis pain. Come back immediately for any increased labial swelling, redness, or fever. Also return with any abdominal pain, vomiting, or change in location or quality of pain. Prescriptions: Sulfamethoxazole/Trimethoprim [Bactrim Ds Tablet] 2 each PO BID #40 tablet
[2016-11-24] MEDS ORDERED: OXYCODONE-ACETAMINOPHEN 5-325 MG TABLET PO ONE (17:16)
--- NOTE | 2016-11-24 17:42 | RADIOLOGY REPORT (SQ) ---
EXAM DESCRIPTION: KUB/ABDOMEN (SINGLE VIEW) COMPLETED DATE/TIME: 11/24/2016 5:12 pm REASON FOR STUDY: 20, eval IUD COMPARISON: None. NUMBER OF VIEWS: One view. TECHNIQUE: Supine radiographic image of the abdomen acquired. LIMITATIONS: None. FINDINGS: BOWEL GAS PATTERN: Normal bowel gas pattern. No dilated loops. CALCIFICATIONS: No suspicious calcifications. SOFT TISSUES: No gross mass or suggestion of organomegaly. HARDWARE: IUD is projected in the pelvis just to the left of midline. BONES: No acute fracture. No worrisome bone lesions. OTHER: No other significant finding. IMPRESSION: NO RADIOGRAPHIC EVIDENCE FOR ACUTE ABDOMINAL DISEASE. IUD is projected in the pelvis ju st to the left of midline. TECHNICAL DOCUMENTATION: JOB ID: [id number] [employer]- All Rights Reserved
[2016-11-24 18:44] VITALS: BP 133/88
[2016-11-24 19:21] LABS: CHLAM PCR NOT DETECTED (NOT DETECT)
== END 2016-11-24 18:44 | disposition home or self-care (01) ==
LOC: ER 14:32
PROC: 0U9MXZZ Drainage of Vulva, External Approach (ICD-10-PCS; principal; 2016-11-24)
PROC: 0UPDXHZ Removal of Contraceptive Device from Uterus and Cervix, External Approach (ICD-10-PCS; 2016-11-24)
DX: N76.4 Abscess of vulva (principal); F17.200 Nicotine dependence, unspecified, uncomplicated; Z30.432 Encounter for removal of intrauterine contraceptive device; Z88.0 Allergy status to penicillin; Z88.7 Allergy status to serum and vaccine; Z88.6 Allergy status to analgesic agent
CPT/HCPCS: 74000; 81001; 81025; 87210; 87491; 87591; 99284

== ENCOUNTER 2016-12-02 01:37 | Emergency (ER) | payer OTHER ==
[2016-12-02] MEDS ORDERED: MORPHINE SULFATE 10 MG/ML INJ IV ONE (02:31)
[2016-12-02] MEDS ORDERED: PROMETHAZINE HCL INJ 25 MG/1 ML VIAL IM ONE (02:33)
--- NOTE | 2016-12-02 02:34 | ER Document Report ---
ED General - General Chief Complaint: Abdominal Pain Stated Complaint: ABDOMINAL PAIN Time Seen by Provider: 12/02/16 02:29 TRAVEL OUTSIDE OF THE [place] IN LAST 30 DAYS: No - Related Data Allergies/Adverse Reactions: amoxicillin Allergy (Verified 12/02/16 02:03) codeine Allergy (Verified 12/02/16 02:03) ondansetron HCl [From Zofran] Allergy (Verified 12/02/16 02:03) Penicillins Allergy (Verified 12/02/16 02:03) Tetanus Vaccines and Toxoid [Tetanus] Allergy (Verified 12/02/16 02:03) Past Medical History - Social History Smoking Status: Never Smoker Chew tobacco use (# tins/day): No Frequency of alcohol use: None Drug Abuse: None Family History: CAD, COPD, DM, Hyperlipidemia, Hypertension, Malignancy, Thyroid Disfunction Patient has suicidal ideation: No Patient has homicidal ideation: No Renal/ Medical History: Reports: Hx Ovarian Cysts, Hx Pelvic Inflammatory Disease. Denies: Hx Peritoneal Dialysis Psychiatric Medical History: Reports: Hx Anxiety, Hx Depression Past Surgical History: Reports: Hx Abdominal Surgery - removal of gallstone that was obstructing patient's bile duct, Hx Dilation and Curettage, Hx Gynecologic Surgery - D&C - Immunizations Immunizations up to date: Yes Hx Diphtheria, Pertussis, Tetanus Vaccination: No - tetanus allergy Physical Exam - Vital signs Vitals: Temp Pulse Resp BP Pulse Ox 97.8 F 108 H 20 123/81 98 12/02/16 01:39 12/02/16 01:39 12/02/16 01:39 12/02/16 01:39 12/02/16 01:39 Course - Re-evaluation Re-evalutation: 12/02/16 05:07 Patient still has little bit of pain but is feeling improved. Her nausea is much improved. Her liver enzymes are normal. Her right upper quadrant ultrasound was normal. I suspect that she may have biliary dyskinesia. I did explain this to her. I will refer her to surgery clinic so she can follow with them for reevaluation and possible referral for outpatient HIDA scan if they feel it is necessary. I encouraged her return to ER immediately if she has fevers, recurrent vomiting, worsening pain, or feels unwell. Patient agrees with plan and will be discharged home. She encouraged to follow non-fat diet. Dictation of this chart was performed using voice recognition software; therefore, there may be some unintended grammatical errors. - Vital Signs Vital signs: Temp Pulse Resp BP Pulse Ox 97.8 F 94 18 123/81 98 12/02/16 01:41 12/02/16 01:41 12/02/16 02:28 12/02/16 01:41 12/02/16 01:41 - Laboratory Result Diagrams: 12/02/16 02:20 12/02/16 02:20 Laboratory results interpreted by me: 12/02/16 12/02/16 12/02/16 02:20 02:20 02:20 WBC 13.9 H Absolute Neutrophils 9.3 H Potassium 3.3 L Chloride 113 H Carbon Dioxide 17 L Glucose 136 H AST 13 L Urine Protein 30 H Discharge - Discharge Clinical Impression: Abdominal pain Qualifiers: Abdominal location: right upper quadrant Qualified Code(s): R10.11 - Right upper quadrant pain Vomiting Qualifiers: Vomiting type: unspecified Vomiting Intractability: non-intractable Nausea presence: with nausea Qualified Code(s): R11.2 - Nausea with vomiting, unspecified Condition: Good Disposition: HOME, SELF-CARE Additional Instructions: Gallbladder Disease Your evaluation shows evidence of gallbladder disease. The gallbladder is a pouch under the liver which stores bile. Stones, infection, or irritation of the gallbladder cause attacks of pain. Certain foods -- fats in particular -- may provoke attacks. The usual treatment for gallbladder disease is surgical removal of the gallbladder -- called a cholecystectomy. You will be referred to a physician qualified to advise you on the best treatment for your problem. Hospitalization is not necessary. Take clear liquids only until you are painfree. After that, you should stay on a low-fat diet, with frequent SMALL meals. Call the doctor or return at once if you develop severe pain, repeated vomiting, fever, or jaundice (a yellow color in the skin and whites of the eyes) . Please call the surgical office. The number for the surgical office is under "Dr. Batista" on your discharge paperwork. You may eventually need a HIDA scan to further evaluate function of her gallbladder. Please speak with the surgeons about whether they feel this test is necessary. Prescriptions: Promethazine HCl [Phenergan 25 mg Tablet] 1 tab PO Q6H PRN #15 tablet PRN Reason: Tramadol HCl [Ultram 50 mg Tablet] 50 mg PO ASDIR PRN #20 tablet PRN Reason: Referrals: SAMMIE BATISTA MD [ACTIVE STAFF] - Follow up as needed (Call the office this morning to arrange an appointment.)
[2016-12-02 02:37] LABS: ABSOLUTE BASOPHILS # (AUTO) 0.1 10^3/uL (0.0-0.2); ABSOLUTE EOSINOPHILS # (AUTO) 0.2 10^3/uL (0.0-0.6); ABSOLUTE LYMPHOCYTES (AUTO) 3.8 10^3/uL (0.5-4.7); ABSOLUTE MONOCYTES (AUTO) 0.5 10^3/uL (0.1-1.4); ABSOLUTE NEUT (AUTO) 9.3 10^3/uL (1.7-8.2); BASOPHILS % (AUTO) 0.4 % (0-2); EOSINOPHILS % (AUTO) 1.3 % (0-6); HEMATOCRIT 43.7 % (36.0-47.0); HEMOGLOBIN 14.8 g/dL (12.0-15.5); HGB HCT DIFFERENCE 0.7; LYMPHOCYTES % (AUTO) 27.6 % (13-45); MEAN CORPUSCULAR HEMOGLOBIN 29.6 pg (27.0-33.4); MEAN CORPUSCULAR HGB CONC 33.8 g/dL (32.0-36.0); MEAN CORPUSCULAR VOLUME 87 fl (80-97); MONOCYTES % (AUTO) 3.7 % (3-13); RED CELL DISTRIBUTION WIDTH 13.2 % (11.5-14.0); WHITE BLOOD COUNT 13.9 10^3/uL (4.0-10.5)
[2016-12-02 02:45] LABS: APPEARANCE,URINE SLIGHTLY-CLOUDY; BILIRUBIN,URINE NEGATIVE (NEGATIVE); GLUCOSE, URINE NEGATIVE (NEGATIVE); KETONES,URINE NEGATIVE (NEGATIVE); LEUKOCYTE ESTERASE,URINE NEGATIVE (NEGATIVE); NITRITE,URINE NEGATIVE (NEGATIVE); PROTEIN,URINE 30 mg/dL (NEGATIVE); URINE SPECIFIC GRAVITY 1.021; UROBILINOGEN,URINE NEGATIVE mg/dL (<2.0)
[2016-12-02 02:50] LABS: ALANINE AMINOTRANSFERASE 20 U/L (9-52); ALBUMIN 4.5 g/dL (3.5-5.0); ALKALINE PHOSPHATASE 72 U/L (38-126); ANION GAP 14 (5-19); ASPARTATE AMINO TRANSFERASE 13 U/L (14-36); BILIRUBIN,DIRECT 0.4 mg/dL (0.0-0.4); BILIRUBIN,TOTAL 0.4 mg/dL (0.2-1.3); BLOOD UREA NITROGEN 9 mg/dL (7-20); CALCIUM 9.6 mg/dL (8.4-10.2); CARBON DIOXIDE 17 mmol/L (22-30); CHLORIDE 113 mmol/L (98-107); CREATININE RESULT 0.64 mg/dL (0.52-1.25); GLUCOSE 136 mg/dL (75-110); LIPASE 160.5 U/L (23-300); POTASSIUM 3.3 mmol/L (3.6-5.0); SODIUM 143.5 mmol/L (137-145); TOTAL PROTEIN 6.9 g/dL (6.3-8.2)
[2016-12-02] MEDS ORDERED: HYDROMORPHONE HCL INJ/PF 2 MG/ML AMPULE IV ONE (04:43)
--- NOTE | 2016-12-02 04:43 | RADIOLOGY REPORT (SQ) ---
EXAM DESCRIPTION: U/S ABDOMEN LTD W/DOPPLER COMPLETED DATE/TIME: 12/02/2016 4:21 am REASON FOR STUDY: gallbladder pain COMPARISON: None. TECHNIQUE: Dynamic and static grayscale images acquired of the abdomen and recorded on PACS. Additio nal selected color Doppler and spectral images recorded. LIMITATIONS: None. FINDINGS: PANCREAS: No masses. Visualized pancreatic duct normal caliber. LIVER: No masses. Echotexture normal. LIVER VASCULATURE: Normal directional flow of the main portal vein and hepatic veins. GALLBLADDER: No stones. Normal wall thickness. No pericholecystic fluid. ULTRASOUND-DETECTED PLUMMER'S SIGN: Negative. INTRAHEPATIC DUCTS AND COMMON DUCT: 0.14- cm diameter CBD and intrahepatic ducts normal caliber. No f illing defects. INFERIOR VENA CAVA: Normal flow. AORTA: No aneurysm. RIGHT KIDNEY: Normal size. Normal echogenicity. No solid or suspicious masses. No significant hydron ephrosis. No calcifications. Mild nonspecific prominence of the renal pelvis measuring 0.8 cm. PERITONEAL AND RIGHT PLEURAL SPACE: No ascites or effusions. OTHER: No other significant findings. IMPRESSION: NORMAL RIGHT UPPER QUADRANT ULTRASOUND. TECHNICAL DOCUMENTATION: JOB ID: [id number] [employer]- All Rights Reserved
[2016-12-02 05:24] VITALS: BP 117/69
== END 2016-12-02 05:20 | disposition home or self-care (01) ==
LOC: ER 01:37
DX: R10.11 Right upper quadrant pain (principal); R10.13 Epigastric pain; R10.813 Right lower quadrant abdominal tenderness; R11.2 Nausea with vomiting, unspecified; Z90.49 Acquired absence of other specified parts of digestive tract; Z88.0 Allergy status to penicillin; Z88.6 Allergy status to analgesic agent; Z88.8 Allergy status to other drugs, medicaments and biological substances; Z88.7 Allergy status to serum and vaccine; Z87.42 Personal history of other diseases of the female genital tract
CPT/HCPCS: 99284; 96372; 96374; 96375; 36415; 83690; 85025; 80053; 81001; 76705; 93976; J2270; J1170; J2550

== ENCOUNTER 2016-12-02 15:41 | Emergency (ER) | payer OTHER ==
[2016-12-02 15:49] VITALS: BP 124/80
--- NOTE | 2016-12-02 16:21 | ER Document Report ---
ED Medical Screen (RME) - General Chief Complaint: Abdominal Pain Stated Complaint: ABDOMINAL PAIN Time Seen by Provider: 12/02/16 16:17 Notes: Patient presents with worsening abdominal pain and vomiting. States she was seen here yesterday for similar problem. TRAVEL OUTSIDE OF THE [place] IN LAST 30 DAYS: No - Related Data Allergies/Adverse Reactions: amoxicillin Allergy (Verified 12/02/16 15:49) codeine Allergy (Verified 12/02/16 15:49) ondansetron HCl [From Zofran] Allergy (Verified 12/02/16 15:49) Penicillins Allergy (Verified 12/02/16 15:49) Tetanus Vaccines and Toxoid [Tetanus] Allergy (Verified 12/02/16 15:49) Home Medications: Current Home Medications No Home Medications 12/02/16 [History] Past Medical History - Social History Chew tobacco use (# tins/day): No Frequency of alcohol use: None Drug Abuse: None Renal/ Medical History: Reports: Hx Ovarian Cysts, Hx Pelvic Inflammatory Disease. Denies: Hx Peritoneal Dialysis Psychiatric Medical History: Reports: Hx Anxiety, Hx Depression Past Surgical History: Reports: Hx Abdominal Surgery - removal of gallstone that was obstructing patient's bile duct, Hx Dilation and Curettage, Hx Gynecologic Surgery - D&C - Immunizations Immunizations up to date: Yes Hx Diphtheria, Pertussis, Tetanus Vaccination: No - tetanus allergy Physical Exam - Vital signs Vitals: Temp Pulse Resp BP Pulse Ox 97.5 F 113 H 14 124/80 99 12/02/16 15:48 12/02/16 15:48 12/02/16 15:48 12/02/16 15:48 12/02/16 15:48 Course - Vital Signs Vital signs: Temp Pulse Resp BP Pulse Ox 97.5 F 113 H 14 124/80 99 12/02/16 15:48 12/02/16 15:48 12/02/16 15:48 12/02/16 15:48 12/02/16 15:48
[2016-12-02 16:44] LABS: ABSOLUTE EOSINOPHILS # (AUTO) 0.3 10^3/uL (0.0-0.6); ABSOLUTE LYMPHOCYTES (AUTO) 1.2 10^3/uL (0.5-4.7); ABSOLUTE MONOCYTES (AUTO) 0.7 10^3/uL (0.1-1.4); ABSOLUTE NEUT (AUTO) 8.9 10^3/uL (1.7-8.2); BASOPHILS % (AUTO) 0.4 % (0-2); EOSINOPHILS % (AUTO) 2.6 % (0-6); HEMATOCRIT 46.6 % (36.0-47.0); HEMOGLOBIN 16.1 g/dL (12.0-15.5); HGB HCT DIFFERENCE 1.7; MEAN CORPUSCULAR HEMOGLOBIN 30.1 pg (27.0-33.4); MEAN CORPUSCULAR HGB CONC 34.5 g/dL (32.0-36.0); MEAN CORPUSCULAR VOLUME 87 fl (80-97); MONOCYTES % (AUTO) 6.4 % (3-13); RED BLOOD COUNT 5.34 10^6/uL (3.72-5.28); RED CELL DISTRIBUTION WIDTH 13.1 % (11.5-14.0); SEGMENTED NEUTROPHILS % (AUTO) 79.6 % (42-78); WHITE BLOOD COUNT 11.2 10^3/uL (4.0-10.5)
[2016-12-02 16:49] LABS: APPEARANCE,URINE CLOUDY; BILIRUBIN,URINE NEGATIVE (NEGATIVE); GLUCOSE, URINE NEGATIVE (NEGATIVE); KETONES,URINE NEGATIVE (NEGATIVE); LEUKOCYTE ESTERASE,URINE TRACE (NEGATIVE); NITRITE,URINE NEGATIVE (NEGATIVE); PROTEIN,URINE NEGATIVE (NEGATIVE); URINE SPECIFIC GRAVITY 1.024; UROBILINOGEN,URINE NEGATIVE mg/dL (<2.0)
[2016-12-02 17:46] LABS: ALANINE AMINOTRANSFERASE 26 U/L (9-52); ALBUMIN 4.2 g/dL (3.5-5.0); ALKALINE PHOSPHATASE 72 U/L (38-126); ANION GAP 13 (5-19); ASPARTATE AMINO TRANSFERASE 22 U/L (14-36); BILIRUBIN,DIRECT 0.3 mg/dL (0.0-0.4); BILIRUBIN,TOTAL 1.2 mg/dL (0.2-1.3); BLOOD UREA NITROGEN 12 mg/dL (7-20); CALCIUM 9.2 mg/dL (8.4-10.2); CARBON DIOXIDE 18 mmol/L (22-30); CHLORIDE 112 mmol/L (98-107); CREATININE RESULT 0.63 mg/dL (0.52-1.25); GLUCOSE 99 mg/dL (75-110); LIPASE 59.5 U/L (23-300); POTASSIUM 3.9 mmol/L (3.6-5.0); SODIUM 143.1 mmol/L (137-145); TOTAL PROTEIN 6.7 g/dL (6.3-8.2)
[2016-12-02] MEDS ORDERED: METOCLOPRAMIDE HCL INJ/PF 10 MG/2 ML SDV IV ONE (17:59)
[2016-12-02] MEDS ORDERED: KETOROLAC TROMETHAMINE INJ/PF 30 MG/1 ML SDV IV ONE (17:59)
[2016-12-02] MEDS ORDERED: NORMAL SALINE 1000 ML 1,000 ML IV ONE (17:59)
--- NOTE | 2016-12-02 17:59 | ER Document Report ---
ED GI/ - General Chief Complaint: Abdominal Pain Stated Complaint: ABDOMINAL PAIN Time Seen by Provider: 12/02/16 16:17 Mode of Arrival: Ambulatory Information source: Patient Notes: Patient is a 31-year-old female who presents to the ER today for the second time in 24 hours for right abdominal pain, thinking it is her gallbladder. Patient the has had continued pain since leaving here last night and 4 episodes of diarrhea, 7 episodes of vomiting. She denies any fevers or chills that she knows of. Gallbladder ultrasound was performed last night and normal. TRAVEL OUTSIDE OF THE [place] IN LAST 30 DAYS: No - Related Data Allergies/Adverse Reactions: amoxicillin Allergy (Verified 12/02/16 15:49) codeine Allergy (Verified 12/02/16 15:49) ondansetron HCl [From Zofran] Allergy (Verified 12/02/16 15:49) Penicillins Allergy (Verified 12/02/16 15:49) Tetanus Vaccines and Toxoid [Tetanus] Allergy (Verified 12/02/16 15:49) Past Medical History - General Information source: Patient - Social History Smoking Status: Current Some Day Smoker Chew tobacco use (# tins/day): No Frequency of alcohol use: None Drug Abuse: None Family History: CAD, COPD, DM, Hyperlipidemia, Hypertension, Malignancy, Thyroid Disfunction Renal/ Medical History: Reports: Hx Ovarian Cysts, Hx Pelvic Inflammatory Disease. Denies: Hx Peritoneal Dialysis Psychiatric Medical History: Reports: Hx Anxiety, Hx Depression Past Surgical History: Reports: Hx Abdominal Surgery - removal of gallstone that was obstructing patient's bile duct, Hx Dilation and Curettage, Hx Gynecologic Surgery - D&C - Immunizations Immunizations up to date: Yes Hx Diphtheria, Pertussis, Tetanus Vaccination: No - tetanus allergy Review of Systems - Review of Systems Constitutional: No symptoms reported EENT: No symptoms reported Cardiovascular: No symptoms reported Respiratory: No symptoms reported Gastrointestinal: See HPI Genitourinary: No symptoms reported Female Genitourinary: No symptoms reported Musculoskeletal: No symptoms reported Skin: No symptoms reported Hematologic/Lymphatic: No symptoms reported Neurological/Psychological: No symptoms reported Physical Exam - Vital signs Vitals: Temp Pulse Resp BP Pulse Ox 97.5 F 113 H 14 124/80 99 12/02/16 15:48 12/02/16 15:48 12/02/16 15:48 12/02/16 15:48 12/02/16 15:48 - Notes Notes: PHYSICAL EXAMINATION: GENERAL: Uncomfortable appearing, but in no acute distress. HEAD: Atraumatic, normocephalic. EYES: Pupils equal round and reactive to light, extraocular movements intact, sclera anicteric, conjunctiva are normal. NECK: Normal range of motion, supple without lymphadenopathy LUNGS: CTAB and equal. No wheezes rales or rhonchi. HEART: Regular rate and rhythm without murmurs ABDOMEN: Mildly distended, right upper quadrant tenderness, soft, No guarding, no rebound BACK: no vertebral tenderness, normal ROM GI/: no CVA tenderness EXTREMITIES: Normal range of motion, no pitting edema. No cyanosis. NEUROLOGICAL: Cranial nerves grossly intact. Normal sensory/motor exams. PSYCH: Normal mood, normal affect. SKIN: Warm, Dry, normal turgor, no rashes or lesions noted Course - Re-evaluation Re-evalutation: 12/02/16 19:19 Lab work is unremarkable today, white count is actually better than it was last night. CT renal protocol reports normal gallbladder, normal appendix, normal liver, 1.2 cm stone in the kidney, not in the ureter, I do not know at this time what is causing patient's pain or mild distention except for the fact that she is having vomiting and diarrhea, could be viral in origin. I will have her follow-up with her primary care provider about this and provide her some bentyl. - Vital Signs Vital signs: Temp Pulse Resp BP Pulse Ox 97.5 F 113 H 14 124/80 99 12/02/16 15:48 12/02/16 15:48 12/02/16 15:48 12/02/16 15:48 12/02/16 15:48 - Laboratory Result Diagrams: 12/02/16 16:25 12/02/16 17:10 Laboratory results interpreted by me: 12/02/16 12/02/16 12/02/16 16:20 16:25 17:10 WBC 11.2 H RBC 5.34 H Hgb 16.1 H Seg Neutrophils % 79.6 H Lymphocytes % 11.0 L Absolute Neutrophils 8.9 H Chloride 112 H Carbon Dioxide 18 L Ur Leukocyte Esterase TRACE H Discharge - Discharge Clinical Impression: Abdominal pain Qualifiers: Abdominal location: right upper quadrant Qualified Code(s): R10.11 - Right upper quadrant pain Vomiting Qualifiers: Vomiting type: unspecified Vomiting Intractability: non-intractable Nausea presence: with nausea Qualified Code(s): R11.2 - Nausea with vomiting, unspecified Diarrhea Qualifiers: Diarrhea type: unspecified type Qualified Code(s): R19.7 - Diarrhea, unspecified Condition: Stable Disposition: HOME, SELF-CARE Additional Instructions: Return immediately for any new or worsening symptoms. Follow up with conservation educator, primary care provider, call tomorrow to make followup appointment. Prescriptions: Dicyclomine HCl [Bentyl 20 mg Tablet] 20 mg PO QID #40 tablet Metoclopramide HCl [Reglan 10 mg Tablet] 1 - 2 tab PO Q4 PRN #25 tablet PRN Reason: Referrals: MARIE POMPA MD [ACTIVE STAFF] - Follow up as needed
--- NOTE | 2016-12-02 19:08 | RADIOLOGY REPORT (SQ) ---
EXAM DESCRIPTION: CT LTD RENAL STONE PROTOCOL ON COMPLETED DATE/TIME: 12/02/2016 6:58 pm REASON FOR STUDY: continued right sided pain, kidney stone seen us COMPARISON: None. TECHNIQUE: CT scan of the abdomen and pelvis performed without intravenous or oral contrast. Images reviewed with lung, soft tissue, and bone windows. Reconstructed coronal and sagittal MPR images revi ewed. All images stored on PACS. All CT scanners at this facility use dose modulation, iterative reconstruction, and/or weight based d osing when appropriate to reduce radiation dose to as low as reasonably achievable (ALARA). [facility]: Dose Right [facility]: CareDose [facility]: Dose Right [facility]: Teradose 4D [facility]: uSamp RADIATION DOSE: mGy. LIMITATIONS: None. FINDINGS: LOWER CHEST: No significant findings. No nodules or infiltrates. NON-CONTRASTED LIVER, SPLEEN, ADRENALS: Evaluation limited by lack of IV contrast. No identified sign ificant masses. PANCREAS: No masses. No peripancreatic inflammatory changes. GALLBLADDER: No identified stones by CT criteria. No inflammatory changes to suggest cholecystitis. RIGHT KIDNEY AND URETER: No suspicious masses. Assessment limited by lack of IV contrast. No signif icant calcifications. No hydronephrosis or hydroureter. LEFT KIDNEY AND URETER: 1.2 cm mildly calcified stone versus focal area of hemorrhage in the mid kidn ey. No significant calcifications. No hydronephrosis or hydroureter. AORTA AND RETROPERITONEUM: No aneurysm. No retroperitoneal masses or adenopathy. BOWEL AND PERITONEAL CAVITY: No obvious masses or inflammatory changes. No free fluid. APPENDIX: Normal. PELVIS, BLADDER, AND ABDOMINAL WALL:No abnormal masses. No free fluid. Bladder normal. BONES: No significant findings. OTHER: No other significant finding. IMPRESSION: Mildly calcified stone versus focal area of hemorrhage in the midleft kidney. Otherwise normal study. COMMENT: Quality ID # [id number]: Final reports with documentation of one or more dose reduction techniques (e.g., Automated exposure control, adjustment of the mA and/or kV according to patient size, use of iterative reconstruction technique) TECHNICAL DOCUMENTATION: JOB ID: [id number] [employer]- All Rights Reserved
[2016-12-02] MEDS ORDERED: DICYCLOMINE HCL 20 MG TABLET PO ONE (19:23)
== END 2016-12-02 19:15 | disposition home or self-care (01) ==
LOC: ER 15:41
DX: R10.11 Right upper quadrant pain (principal); N20.0 Calculus of kidney; R14.0 Abdominal distension (gaseous); R19.7 Diarrhea, unspecified; R11.10 Vomiting, unspecified; Z88.0 Allergy status to penicillin; Z88.5 Allergy status to narcotic agent; Z88.7 Allergy status to serum and vaccine; Z88.8 Allergy status to other drugs, medicaments and biological substances; Z87.42 Personal history of other diseases of the female genital tract; Z90.49 Acquired absence of other specified parts of digestive tract; Z98.890 Other specified postprocedural states
CPT/HCPCS: 99284; 96361; 96374; 96375; 36415; 83690; 85025; 81025; 80053; 81001; 76380; J1885; J2765; J7030

== ENCOUNTER 2016-12-03 11:17 | Emergency (ER) | payer OTHER ==
--- NOTE | 2016-12-03 11:36 | ER Document Report ---
ED Medical Screen (RME) - General Chief Complaint: Abdominal Pain Stated Complaint: ABDOMINAL PAIN Time Seen by Provider: 12/03/16 11:32 Notes: Patient presents with severe abdominal pain and vomiting. This is patient's third visit in 2 days. She has left AGAINST MEDICAL ADVICE previously when presenting with this pain. Patient had an ultrasound yesterday which is unremarkable. She also had a CT scan which showed a calcification versus hemorrhage in the kidney. Patient states she has left AGAINST MEDICAL ADVICE because she has been scared and she has been alone. She states today she has her best friend with her so she will be able to stay. TRAVEL OUTSIDE OF THE [place] IN LAST 30 DAYS: No - Related Data Allergies/Adverse Reactions: amoxicillin Allergy (Verified 12/03/16 11:20) codeine Allergy (Verified 12/03/16 11:20) ondansetron HCl [From Zofran] Allergy (Verified 12/03/16 11:20) Penicillins Allergy (Verified 12/03/16 11:20) Tetanus Vaccines and Toxoid [Tetanus] Allergy (Verified 12/03/16 11:20) Past Medical History - Social History Chew tobacco use (# tins/day): No Frequency of alcohol use: None Drug Abuse: None Renal/ Medical History: Reports: Hx Ovarian Cysts, Hx Pelvic Inflammatory Disease. Denies: Hx Peritoneal Dialysis Psychiatric Medical History: Reports: Hx Anxiety, Hx Depression Past Surgical History: Reports: Hx Abdominal Surgery - removal of gallstone that was obstructing patient's bile duct, Hx Dilation and Curettage, Hx Gynecologic Surgery - D&C - Immunizations Immunizations up to date: Yes Hx Diphtheria, Pertussis, Tetanus Vaccination: No - tetanus allergy Physical Exam - Vital signs Vitals: Temp Pulse Resp BP Pulse Ox 97.7 F 113 H 22 H 126/81 H 98 12/03/16 11:20 12/03/16 11:20 12/03/16 11:20 12/03/16 11:20 12/03/16 11:20 Course - Vital Signs Vital signs: Temp Pulse Resp BP Pulse Ox 97.7 F 113 H 22 H 126/81 H 98 12/03/16 11:20 12/03/16 11:20 12/03/16 11:20 12/03/16 11:20 12/03/16 11:20
[2016-12-03 11:57] LABS: ABSOLUTE EOSINOPHILS # (AUTO) 0.1 10^3/uL (0.0-0.6); ABSOLUTE MONOCYTES (AUTO) 0.6 10^3/uL (0.1-1.4); ABSOLUTE NEUT (AUTO) 3.9 10^3/uL (1.7-8.2); BASOPHILS % (AUTO) 0.3 % (0-2); EOSINOPHILS % (AUTO) 1.9 % (0-6); HEMATOCRIT 42.2 % (36.0-47.0); HEMOGLOBIN 14.6 g/dL (12.0-15.5); HGB HCT DIFFERENCE 1.6; LYMPHOCYTES % (AUTO) 29.9 % (13-45); MEAN CORPUSCULAR HEMOGLOBIN 30.3 pg (27.0-33.4); MEAN CORPUSCULAR HGB CONC 34.6 g/dL (32.0-36.0); MEAN CORPUSCULAR VOLUME 88 fl (80-97); MONOCYTES % (AUTO) 9.6 % (3-13); RED BLOOD COUNT 4.82 10^6/uL (3.72-5.28); RED CELL DISTRIBUTION WIDTH 13.1 % (11.5-14.0); SEGMENTED NEUTROPHILS % (AUTO) 58.3 % (42-78); WHITE BLOOD COUNT 6.7 10^3/uL (4.0-10.5)
[2016-12-03 12:19] LABS: ALANINE AMINOTRANSFERASE 23 U/L (9-52); ALBUMIN 4.5 g/dL (3.5-5.0); ALKALINE PHOSPHATASE 70 U/L (38-126); ANION GAP 15 (5-19); ASPARTATE AMINO TRANSFERASE 19 U/L (14-36); BILIRUBIN,DIRECT 0.4 mg/dL (0.0-0.4); BLOOD UREA NITROGEN 11 mg/dL (7-20); CALCIUM 9.4 mg/dL (8.4-10.2); CARBON DIOXIDE 21 mmol/L (22-30); CHLORIDE 109 mmol/L (98-107); CREATININE RESULT 0.64 mg/dL (0.52-1.25); GLUCOSE 100 mg/dL (75-110); LIPASE 45.5 U/L (23-300); POTASSIUM 4.1 mmol/L (3.6-5.0); SODIUM 144.7 mmol/L (137-145); TOTAL PROTEIN 6.9 g/dL (6.3-8.2)
[2016-12-03] MEDS ORDERED: METOCLOPRAMIDE HCL ORAL SOLN 10 MG/10 ML UDCUP PO ONE (12:27)
[2016-12-03] MEDS ORDERED: LIDOCAINE 2% VISCOUS SOLN 20 ML UDCUP PO ONE (12:27)
[2016-12-03] MEDS ORDERED: MAG HYDROX/AL HYDROX/SIMETH SUSP 30 ML UDCUP PO ONE (12:27)
[2016-12-03] MEDS ORDERED: NORMAL SALINE 1000 ML 1,000 ML IV PRN (12:28)
--- NOTE | 2016-12-03 12:30 | ER Document Report ---
ED GI/ - General Chief Complaint: Abdominal Pain Stated Complaint: ABDOMINAL PAIN Time Seen by Provider: 12/03/16 11:32 Mode of Arrival: Ambulatory Information source: Patient TRAVEL OUTSIDE OF THE [place] IN LAST 30 DAYS: No - HPI Patient complains to provider of: Abdominal pain, Diarrhea, Vomiting Onset: Other - 3 days Timing/Duration: Persistent, Worse Quality of pain: Achy, Cramping Location: Epigastric Associated symptoms: Diarrhea, Nausea, Vomiting Notes: 12/03/16 12:29 Patient is a 31-year-old female presenting to the emergency room for the third time in 2 weeks complaining of epigastric abdominal pain with vomiting and diarrhea, states that she has had the symptoms intermittently and they have been worsening over the past 3 days, she denies any fever, no dysuria although she does report decreased urine output today, states that she has bilious vomit , and pain is in the epigastric region, she states she has a history of gallbladder problems in the past, however recent workups have shown a normal gallbladder, CT scan was performed yesterday which was unremarkable as well, she reports feeling bloated with early satiety and watery diarrhea - Related Data Allergies/Adverse Reactions: amoxicillin Allergy (Verified 12/03/16 11:20) codeine Allergy (Verified 12/03/16 11:20) ondansetron HCl [From Zofran] Allergy (Verified 12/03/16 11:20) Penicillins Allergy (Verified 12/03/16 11:20) Tetanus Vaccines and Toxoid [Tetanus] Allergy (Verified 12/03/16 11:20) Past Medical History - General Information source: Patient - Social History Smoking Status: Current Some Day Smoker Chew tobacco use (# tins/day): No Frequency of alcohol use: None Drug Abuse: None Family History: CAD, COPD, DM, Hyperlipidemia, Hypertension, Malignancy, Thyroid Disfunction Renal/ Medical History: Reports: Hx Ovarian Cysts, Hx Pelvic Inflammatory Disease. Denies: Hx Peritoneal Dialysis Psychiatric Medical History: Reports: Hx Anxiety, Hx Depression Past Surgical History: Reports: Hx Abdominal Surgery - removal of gallstone that was obstructing patient's bile duct, Hx Dilation and Curettage, Hx Gynecologic Surgery - D&C - Immunizations Immunizations up to date: Yes Hx Diphtheria, Pertussis, Tetanus Vaccination: No - tetanus allergy Review of Systems - Review of Systems Constitutional: No symptoms reported EENT: No symptoms reported Cardiovascular: No symptoms reported Respiratory: No symptoms reported Gastrointestinal: See HPI Genitourinary: No symptoms reported Female Genitourinary: No symptoms reported Musculoskeletal: No symptoms reported Skin: No symptoms reported Hematologic/Lymphatic: No symptoms reported Neurological/Psychological: No symptoms reported -: Yes All other systems reviewed and negative Physical Exam - Vital signs Vitals: Temp Pulse Resp BP Pulse Ox 97.7 F 113 H 22 H 126/81 H 98 12/03/16 11:20 12/03/16 11:20 12/03/16 11:20 12/03/16 11:20 12/03/16 11:20 Interpretation: Tachycardic - General General appearance: Appears well, Alert - HEENT Head: Normocephalic, Atraumatic Eyes: Normal Pupils: PERRL - Respiratory Respiratory status: No respiratory distress Chest status: Nontender Breath sounds: Normal Chest palpation: Normal - Cardiovascular Rhythm: Regular Heart sounds: Normal auscultation Murmur: No - Abdominal Inspection: Normal Distension: Distended, Tympanitic Bowel sounds: Normal Tenderness: Tender - Diffusely tender Organomegaly: No organomegaly - Back Back: Normal, Nontender - Extremities General upper extremity: Normal inspection, Nontender, Normal color, Normal ROM , Normal temperature General lower extremity: Normal inspection, Nontender, Normal color, Normal ROM , Normal temperature, Normal weight bearing. No: Adonis's sign - Neurological Neuro grossly intact: Yes Cognition: Normal Orientation: AAOx4 [place] Coma Scale Eye Opening: Spontaneous Maciej Coma Scale Verbal: Oriented [place] Coma Scale Motor: Obeys Commands Maciej Coma Scale Total: 15 Speech: Normal Motor strength normal: LUE, RUE, LLE, RLE Sensory: Normal - Psychological Associated symptoms: Normal affect, Normal mood - Skin Skin Temperature: Warm Skin Moisture: Dry Skin Color: Normal Course - Re-evaluation Re-evalutation: 12/03/16 13:56 Patient resting comfortably, reports feeling much better, labs were discussed at bedside which are relatively unremarkable, she has been able to urinate and is tolerating p.o. fluid intake, she was given saltine and danita crackers, if patient continues to tolerate p.o. intake she will be discharged with prescription for Pepcid as well as Bentyl and instructions to follow-up with gastroenterology, patient acknowledges understanding and agreement with this plan - Vital Signs Vital signs: Temp Pulse Resp BP Pulse Ox 97.7 F 113 H 22 H 126/81 H 98 12/03/16 11:20 12/03/16 11:20 12/03/16 11:20 12/03/16 11:20 12/03/16 11:20 - Laboratory Result Diagrams: 12/03/16 11:40 12/03/16 11:40 Laboratory results interpreted by me: 12/03/16 11:40 Chloride 109 H Carbon Dioxide 21 L - Diagnostic Test Radiology reviewed: Image reviewed, Reports reviewed Discharge - Discharge Clinical Impression: Abdominal pain Qualifiers: Abdominal location: epigastric Qualified Code(s): R10.13 - Epigastric pain Vomiting Qualifiers: Vomiting type: bilious vomiting Nausea presence: with nausea Qualified Code(s) : R11.14 - Bilious vomiting Diarrhea Qualifiers: Diarrhea type: unspecified type Qualified Code(s): R19.7 - Diarrhea, unspecified Condition: Stable Disposition: HOME, SELF-CARE Instructions: Abdominal Pain ([facility]), Antinausea Medication ([facility]), Intravenous ( IV) Fluids ([facility]), Diarrhea, Nonspecific ([facility]), Antispasmodics ([facility]), Vomiting ( [facility]), Gastroenterology, Gastritis ([facility]) Additional Instructions: Follow up with your primary care provider in one to 2 days. Return to the emergency room immediately if symptoms worsen or any additional concerns. Prescriptions: Dicyclomine HCl [Bentyl 20 mg Tablet] 20 mg PO QID #120 tablet Esomeprazole Mag Trihydrate [Nexium] 40 mg PO DAILY #30 cap Sucralfate [Carafate 1 gm Tablet] 1 gm PO QID #120 tablet
[2016-12-03] MEDS ORDERED: DICYCLOMINE HCL 20 MG TABLET PO ONE (12:31)
--- NOTE | 2016-12-03 12:54 | RADIOLOGY REPORT (SQ) ---
EXAM DESCRIPTION: ACUTE ABDOMEN SERIES COMPLETED DATE/TIME: 12/03/2016 12:47 pm REASON FOR STUDY: pain COMPARISON: CT dated 12/02/2016. X-ray dated 11/24/2016. NUMBER OF VIEWS: Three views. TECHNIQUE: Frontal chest, supine abdomen and upright/decubitus abdomen radiographic images acquired. LIMITATIONS: None. FINDINGS: CHEST: Lungs clear of infiltrates. FREE AIR: None. No abnormal gas collections. BOWEL GAS PATTERN: Nonobstructive pattern. No dilated loops or air fluid levels. CALCIFICATIONS: No suspicious calcifications. HARDWARE: None in the abdomen. SOFT TISSUES: No gross mass or suggestion of organomegaly. BONES: No acute fracture. No worrisome bone lesions. OTHER: No other significant finding. IMPRESSION: NO RADIOGRAPHIC EVIDENCE FOR ACUTE ABDOMINAL DISEASE. TECHNICAL DOCUMENTATION: JOB ID: [id number] [email or web address]- All Rights Reserved
[2016-12-03 14:19] LABS: APPEARANCE,URINE CLOUDY; BILIRUBIN,URINE NEGATIVE (NEGATIVE); GLUCOSE, URINE NEGATIVE (NEGATIVE); KETONES,URINE NEGATIVE (NEGATIVE); LEUKOCYTE ESTERASE,URINE TRACE (NEGATIVE); NITRITE,URINE NEGATIVE (NEGATIVE); PROTEIN,URINE NEGATIVE (NEGATIVE); URINE SPECIFIC GRAVITY 1.018; UROBILINOGEN,URINE NEGATIVE mg/dL (<2.0)
[2016-12-03 15:06] VITALS: BP 130/76
== END 2016-12-03 14:30 | disposition home or self-care (01) ==
LOC: ER 11:17
DX: R10.13 Epigastric pain (principal); R11.14 Bilious vomiting; R19.7 Diarrhea, unspecified; R10.9 Unspecified abdominal pain; F17.200 Nicotine dependence, unspecified, uncomplicated
CPT/HCPCS: 99284; 96360; 36415; 83690; 85025; 80053; 81001; 74022; J3490 ×2; J7030

== ENCOUNTER 2016-12-21 14:31 | Emergency (ER) | payer OTHER ==
[2016-12-21] MEDS ORDERED: IBUPROFEN 800 MG TABLET PO ONE (15:56)
[2016-12-21] MEDS ORDERED: DOXYCYCLINE HYCLATE 100 MG TABLET PO ONE (15:56)
--- NOTE | 2016-12-21 15:59 | ER Document Report ---
ED Extremity Problem, Lower - General Chief Complaint: Foot Pain Stated Complaint: SKIN CONCERN Time Seen by Provider: 12/21/16 15:19 Mode of Arrival: Ambulatory Information source: Patient Notes: 31-year-old female presents to ED for complaint of pain in the right foot fifth started a couple days ago. She states that she just had a PET to 7 days ago and also only a small hole formed and her foot became swollen painful and reddish purple. She denies any fever. She denies any known injuries. TRAVEL OUTSIDE OF THE [place] IN LAST 30 DAYS: No - HPI Location: Foot Occurred: Other - 3 days Onset/Duration: Gradual Quality of pain: Achy, Pressure Severity: Moderate Pain Level: 3 Context: Other - painful ambulation Recent injury: No Associated symptoms: Painful ambulation Exacerbated by: Hanging down, Movement, Walking Relieved by: Elevation - Related Data Allergies/Adverse Reactions: amoxicillin Allergy (Verified 12/21/16 15:14) codeine Allergy (Verified 12/21/16 15:14) ondansetron HCl [From Zofran] Allergy (Verified 12/21/16 15:14) Penicillins Allergy (Verified 12/21/16 15:14) Tetanus Vaccines and Toxoid [Tetanus] Allergy (Verified 12/21/16 15:14) Past Medical History - General Information source: Patient - Social History Smoking Status: Current Every Day Smoker Cigarette use (# per day): Yes - 4-5 Chew tobacco use (# tins/day): No Smoking Education Provided: Yes - less than 1 min Frequency of alcohol use: Occasional Drug Abuse: None Lives with: Family Family History: CAD, COPD, DM, Hyperlipidemia, Thyroid Disfunction Patient has suicidal ideation: No Patient has homicidal ideation: No - Past Medical History Cardiac Medical History: Reports: None Pulmonary Medical History: Reports: None EENT Medical History: Reports: None Neurological Medical History: Reports: None Endocrine Medical History: Reports: None Renal/ Medical History: Reports: Hx Kidney Stones, Hx Ovarian Cysts, Hx Pelvic Inflammatory Disease Malignancy Medical History: Reports: None GI Medical History: Reports: None Musculoskeltal Medical History: Reports Hx Musculoskeletal Deformity, Reports Hx Musculoskeletal Trauma Skin Medical History: Reports None Psychiatric Medical History: Reports: Hx Anxiety, Hx Depression Traumatic Medical History: Reports: None Infectious Medical History: Reports: None Past Surgical History: Reports: Hx Abdominal Surgery - removal of gallstone that was obstructing patient's bile duct, Hx Dilation and Curettage, Hx Gynecologic Surgery - D&C, Hx Oral Surgery - Immunizations Immunizations up to date: Yes Hx Diphtheria, Pertussis, Tetanus Vaccination: No - tetanus allergy Review of Systems - Review of Systems Constitutional: No symptoms reported EENT: No symptoms reported Cardiovascular: No symptoms reported Respiratory: No symptoms reported Gastrointestinal: No symptoms reported Genitourinary: No symptoms reported Female Genitourinary: No symptoms reported Musculoskeletal: Other - right foot pain and swelling Skin: Change in color Hematologic/Lymphatic: No symptoms reported Neurological/Psychological: No symptoms reported -: Yes All other systems reviewed and negative Physical Exam - Vital signs Vitals: Temp Pulse BP Pulse Ox 98.1 F 91 128/80 H 98 12/21/16 15:09 12/21/16 15:09 12/21/16 15:09 12/21/16 15:09 Interpretation: Normal - General General appearance: Appears well, Alert - HEENT Head: Normocephalic, Atraumatic Eyes: Normal Pupils: PERRL - Respiratory Respiratory status: No respiratory distress Chest status: Nontender Breath sounds: Normal Chest palpation: Normal - Cardiovascular Rhythm: Regular Heart sounds: Normal auscultation Murmur: No - Abdominal Inspection: Normal Distension: No distension Bowel sounds: Normal Tenderness: Nontender Organomegaly: No organomegaly - Back Back: Normal, Nontender - Extremities General upper extremity: Normal inspection, Nontender, Normal color, Normal ROM , Normal temperature General lower extremity: Normal ROM, Normal temperature. No: Adonis's sign Foot: Tender, Edema, No evidence of FB, Tender 5th metatarsal, Other - erythema. No: Navicular tenderness - Neurological Neuro grossly intact: Yes Cognition: Normal Orientation: AAOx4 [place]iej Coma Scale Eye Opening: Spontaneous [place] Coma Scale Verbal: Oriented [place] Coma Scale Motor: Obeys Commands Maciej Coma Scale Total: 15 Speech: Normal Motor strength normal: LUE, RUE, LLE, RLE Sensory: Normal - Psychological Associated symptoms: Normal affect, Normal mood - Skin Skin Temperature: Warm Skin Moisture: Dry Skin Color: Normal Skin irregularity: Erythema Location of irregularity: Extremities - right foot pain Irregularity with: Swelling, Tenderness Course - Re-evaluation Re-evalutation: 12/21/16 17:33 Patient was treated with ibuprofen and doxycycline for her red swollen right foot. 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 Patient just recently got a tattoo to the splint and she has a small insect bite just below the second toe. - Vital Signs Vital signs: Temp Pulse Resp BP Pulse Ox 98.1 F 93 18 124/69 100 12/21/16 15:09 12/21/16 16:11 12/21/16 16:11 12/21/16 16:11 12/21/16 16:11 Discharge - Discharge Clinical Impression: Cellulitis of right foot Condition: Stable Disposition: HOME, SELF-CARE Instructions: Family Physicians / Practices Additional Instructions: CELLULITIS: You have an infection of your skin and underlying soft tissues called cellulitis. This is due to bacteria, which can enter through any break in the skin, or even through an irritated hair follicle. Untreated, cellulitis will usually worsen. Antibiotics are required. Usually, warm packs or warm soaks, and elevation of the infected area are recommended. You should start getting better within 24 to 36 hours. Most infections respond quickly to the right medication. Follow-up care is important, however, to check for abscess (boil) formation, unsuspected foreign body, or resistant infection. If you develop fever, chills, or if the area of infection is becoming rapidly more swollen or painful, call the doctor at once. DOXYCYCLINE: Doxycycline (Vibramycin, Doryx) is an antibiotic of the tetracycline family. This type of drug is useful for infections of the respiratory tract and genital tract, and is sometimes used for intestinal infections. Unlike most tetracyclines, doxycycline can be taken with food. It is longer acting, and (usually) less prone to side effects than regular tetracycline. Tetracycline antibiotics can stain immature teeth and SHOULD NOT BE TAKEN BY CHILDREN, NURSING MOTHERS, OR WOMEN. Tetracyclines can make you more prone to sunburn. Abdominal cramping, nausea, and diarrhea are occasional side effects. Women may experience vaginal yeast infections. Call the doctor at once if you develop hives, itching, shortness of breath , or lightheadedness. FOLLOW-UP CARE: If you have been referred to a physician for follow-up care, call the physician s office for an appointment as you were instructed or within the next two days. If you experience worsening or a significant change in your symptoms, notify the physician immediately or return to the Emergency Department at any time for re-evaluation. Prescriptions: Doxycycline Hyclate 100 mg PO BID #14 tablet Forms: Smoking Cessation Education, Return to Work Referrals: CAROL RAMIREZ DPM [ACTIVE STAFF] - Follow up as needed
[2016-12-21 16:13] VITALS: BP 124/69
== END 2016-12-21 16:14 | disposition home or self-care (01) ==
LOC: ER 14:31
DX: L03.115 Cellulitis of right lower limb (principal); M79.671 Pain in right foot; Z88.0 Allergy status to penicillin; F17.210 Nicotine dependence, cigarettes, uncomplicated
CPT/HCPCS: 99283

== ENCOUNTER 2017-01-20 09:59 | Emergency (ER) | payer OTHER ==
[2017-01-20 10:03] VITALS: BP 122/82
--- NOTE | 2017-01-20 10:42 | ER Document Report ---
ED GI/ - General Chief Complaint: Vaginal Discharge Stated Complaint: VAGINAL DISCOMFORT Time Seen by Provider: 01/20/17 10:30 Notes: 31 yo female c/o dysuria, urgency, frequency and small voids x 2 wks. denies flank pain, nausea, fever. pt has hx/o frequent uti's. these symptoms are familiar to patient. pt also c/o vaginal discharge with fishy odor. + hx/o recurrent BV. denies any pelvic pain TRAVEL OUTSIDE OF THE [place] IN LAST 30 DAYS: No - HPI Patient complains to provider of: Dysuria, Vaginal discharge Timing/Duration: Persistent Quality of pain: No pain Pain Level: Denies Vaginal bleeding (Compared to normal period): None - Related Data Allergies/Adverse Reactions: amoxicillin Allergy (Verified 01/20/17 10:01) codeine Allergy (Verified 01/20/17 10:01) ondansetron HCl [From Zofran] Allergy (Verified 01/20/17 10:01) Penicillins Allergy (Verified 01/20/17 10:01) Tetanus Vaccines and Toxoid [Tetanus] Allergy (Verified 01/20/17 10:01) Past Medical History - General Information source: Patient - Social History Smoking Status: Current Every Day Smoker Chew tobacco use (# tins/day): No Frequency of alcohol use: Rare Drug Abuse: None Lives with: Alone Family History: CAD, COPD, DM, Hyperlipidemia, Thyroid Disfunction Patient has suicidal ideation: No Patient has homicidal ideation: No - Medical History Medical History: Negative Renal/ Medical History: Reports: Hx Kidney Stones, Hx Ovarian Cysts, Hx Pelvic Inflammatory Disease. Denies: Hx Peritoneal Dialysis Musculoskeltal Medical History: Reports Hx Musculoskeletal Deformity, Reports Hx Musculoskeletal Trauma Psychiatric Medical History: Reports: Hx Anxiety, Hx Depression Past Surgical History: Reports: Hx Abdominal Surgery - removal of gallstone that was obstructing patient's bile duct, Hx Dilation and Curettage, Hx Gynecologic Surgery - D&C, Hx Oral Surgery - Immunizations Immunizations up to date: Yes Hx Diphtheria, Pertussis, Tetanus Vaccination: No - tetanus allergy Review of Systems - Review of Systems Constitutional: No symptoms reported EENT: No symptoms reported Cardiovascular: No symptoms reported Respiratory: No symptoms reported Gastrointestinal: No symptoms reported Genitourinary: See HPI Female Genitourinary: No symptoms reported Musculoskeletal: No symptoms reported Skin: No symptoms reported Hematologic/Lymphatic: No symptoms reported Neurological/Psychological: No symptoms reported Physical Exam - Vital signs Vitals: Temp Pulse Resp BP Pulse Ox 97.8 F 113 H 18 122/82 100 01/20/17 10:01 01/20/17 10:01 01/20/17 10:01 01/20/17 10:01 01/20/17 10:01 Interpretation: Normal - General General appearance: Appears well, Alert - HEENT Head: Normocephalic, Atraumatic Eyes: Normal Pupils: PERRL - Respiratory Respiratory status: No respiratory distress Chest status: Nontender Breath sounds: Normal Chest palpation: Normal - Cardiovascular Rhythm: Regular Heart sounds: Normal auscultation Murmur: No - Abdominal Inspection: Normal Distension: No distension Bowel sounds: Normal Tenderness: Nontender Organomegaly: No organomegaly - Back Back: Normal, Nontender - Extremities General upper extremity: Normal inspection, Nontender, Normal color, Normal ROM , Normal temperature General lower extremity: Normal inspection, Nontender, Normal color, Normal ROM , Normal temperature, Normal weight bearing. No: Adonis's sign - Neurological Neuro grossly intact: Yes Cognition: Normal Orientation: AAOx4 [place] Coma Scale Eye Opening: Spontaneous [place] Coma Scale Verbal: Oriented [place] Coma Scale Motor: Obeys Commands Maciej Coma Scale Total: 15 Speech: Normal Motor strength normal: LUE, RUE, LLE, RLE Sensory: Normal - Psychological Associated symptoms: Normal affect, Normal mood - Skin Skin Temperature: Warm Skin Moisture: Dry Skin Color: Normal Course - Re-evaluation Re-evalutation: 01/20/17 10:45 H&P c/w uncomplicated cystitis and bacterial vaginosis. pt is afebrile, having no pain other than dysuria. i estimate there is low risk for acute appendicitis , bowel ostrction, PID, ectopic or tubo-ovarian abscess. I will treat with oral antibiotic and vaginal application of flagyl. pt is agreeable wit plan and stable for discharge. - Vital Signs Vital signs: Temp Pulse Resp BP Pulse Ox 97.8 F 113 H 18 122/82 100 01/20/17 10:01 01/20/17 10:01 01/20/17 10:01 01/20/17 10:01 01/20/17 10:01 Discharge - Discharge Clinical Impression: Dysuria, Bacterial vaginosis Condition: Stable Disposition: HOME, SELF-CARE Instructions: Antibiotic Therapy ([facility]), Metronidazole ([facility]), Urinary Tract Infection ([facility]) Additional Instructions: I am treating you for a urinary tract infection and Bacterial Vaginosis Please take all medications as prescribed A urine culture is pending, if any change in treatment is needed, we will notify you I recommend you take a daily probiotic Prescriptions: Metronidazole [Metrogel 0.75% Vaginal Gel] 5 applic VG QHS #1 tube Ciprofloxacin HCl [Cipro 500 mg Tablet] 500 mg PO BID #10 tablet
== END 2017-01-20 10:44 | disposition home or self-care (01) ==
LOC: ER 09:59
DX: N76.0 Acute vaginitis (principal); B96.89 Other specified bacterial agents as the cause of diseases classified elsewhere; R30.0 Dysuria; N89.8 Other specified noninflammatory disorders of vagina; R39.15 Urgency of urination; R35.0 Frequency of micturition; F17.200 Nicotine dependence, unspecified, uncomplicated
CPT/HCPCS: 87086; 87088; 87186; 99283

== ENCOUNTER 2017-02-01 12:47 | Emergency (ER) | payer OTHER ==
[2017-02-01] MEDS ORDERED: PROMETHAZINE HCL INJ 50 MG/1 ML VIAL IM PRN (15:03)
[2017-02-01] MEDS ORDERED: KETOROLAC TROMETHAMINE 60 MG/2 ML SDV IM ONE (15:03)
--- NOTE | 2017-02-01 15:09 | ER Document Report ---
ED General - General Chief Complaint: Back Pain Stated Complaint: FLANK PAIN Time Seen by Provider: 02/01/17 14:58 Mode of Arrival: Ambulatory Information source: Patient TRAVEL OUTSIDE OF THE [place] IN LAST 30 DAYS: No - HPI Patient complains to provider of: bilateral flank pain Onset: This morning - pt. has h/o kidney stones with onset of bilateral flank pain with nausea starting earlier today. - Related Data Allergies/Adverse Reactions: amoxicillin Allergy (Verified 02/01/17 13:03) codeine Allergy (Verified 02/01/17 13:03) ondansetron HCl [From Zofran] Allergy (Verified 02/01/17 13:03) Penicillins Allergy (Verified 02/01/17 13:03) Tetanus Vaccines and Toxoid [Tetanus] Allergy (Verified 02/01/17 13:03) Past Medical History - General Information source: Patient - Social History Smoking Status: Never Smoker Cigarette use (# per day): No Chew tobacco use (# tins/day): No Smoking Education Provided: No Family History: CAD, COPD, DM, Hyperlipidemia, Thyroid Disfunction Renal/ Medical History: Reports: Hx Kidney Stones, Hx Ovarian Cysts, Hx Pelvic Inflammatory Disease. Denies: Hx Peritoneal Dialysis Musculoskeltal Medical History: Reports Hx Musculoskeletal Deformity, Reports Hx Musculoskeletal Trauma Psychiatric Medical History: Reports: Hx Anxiety, Hx Depression Past Surgical History: Reports: Hx Abdominal Surgery - removal of gallstone that was obstructing patient's bile duct, Hx Dilation and Curettage, Hx Gynecologic Surgery - D&C, Hx Oral Surgery - Immunizations Immunizations up to date: Yes Hx Diphtheria, Pertussis, Tetanus Vaccination: No - tetanus allergy Review of Systems - Review of Systems Constitutional: No symptoms reported EENT: No symptoms reported Cardiovascular: No symptoms reported Respiratory: No symptoms reported Gastrointestinal: See HPI, Nausea Genitourinary: See HPI, Flank pain Musculoskeletal: No symptoms reported -: Yes All other systems reviewed and negative Physical Exam - Vital signs Vitals: Temp Pulse Resp BP Pulse Ox 98.2 F 96 16 122/82 100 02/01/17 12:59 02/01/17 12:59 02/01/17 12:59 02/01/17 12:59 02/01/17 12:59 - General General appearance: Appears well In distress: Mild - Respiratory Respiratory status: No respiratory distress Breath sounds: Normal - Cardiovascular Rhythm: Regular Heart sounds: Normal auscultation - Abdominal Inspection: Normal Tenderness: Nontender - Back Back: Tender - there is bilateral CVAT. There is FROM of her back and SLR is neg Course - Vital Signs Vital signs: Temp Pulse Resp BP Pulse Ox 98.2 F 96 16 122/82 100 02/01/17 12:59 02/01/17 12:59 02/01/17 12:59 02/01/17 12:59 02/01/17 12:59
[2017-02-01] MEDS ORDERED: PROMETHAZINE HCL INJ 25 MG/1 ML VIAL IM ONE (16:07)
[2017-02-01 16:58] LABS: APPEARANCE,URINE CLOUDY; BILIRUBIN,URINE NEGATIVE (NEGATIVE); COLOR,URINE YELLOW; GLUCOSE, URINE NEGATIVE (NEGATIVE); KETONES,URINE NEGATIVE (NEGATIVE); LEUKOCYTE ESTERASE,URINE NEGATIVE (NEGATIVE); NITRITE,URINE NEGATIVE (NEGATIVE); PROTEIN,URINE NEGATIVE (NEGATIVE); UROBILINOGEN,URINE NEGATIVE mg/dL (<2.0)
--- NOTE | 2017-02-01 18:08 | RADIOLOGY REPORT (SQ) ---
EXAM DESCRIPTION: CT LTD RENAL STONE PROTOCOL ON COMPLETED DATE/TIME: 02/01/2017 5:05 pm REASON FOR STUDY: bilateral flank pain COMPARISON: None. TECHNIQUE: CT scan of the abdomen and pelvis performed without intravenous or oral contrast. Images reviewed with lung, soft tissue, and bone windows. Reconstructed coronal and sagittal MPR images revi ewed. All images stored on PACS. All CT scanners at this facility use dose modulation, iterative reconstruction, and/or weight based d osing when appropriate to reduce radiation dose to as low as reasonably achievable (ALARA). [facility]: Dose Right [facility]: CareDose [facility]: Dose Right [facility]: Teradose 4D [facility]: [employer] RADIATION DOSE: CT Rad equipment meets quality standard of care and radiation dose reduction techniq ues were employed. CTDIvol: 4.8 mGy. DLP: 254 mGy-cm.mGy. LIMITATIONS: None. FINDINGS: LOWER CHEST: No significant findings. No nodules or infiltrates. NON-CONTRASTED LIVER, SPLEEN, ADRENALS: Evaluation limited by lack of IV contrast. No identified sign ificant masses. PANCREAS: No masses. No peripancreatic inflammatory changes. GALLBLADDER: No identified stones by CT criteria. No inflammatory changes to suggest cholecystitis. RIGHT KIDNEY AND URETER: No suspicious masses. Assessment limited by lack of IV contrast. No signif icant calcifications. No hydronephrosis or hydroureter. LEFT KIDNEY AND URETER: There is a small focal area of relative increased density measuring 10 mm at the level of the mid left kidney most consistent with a hyperdense cyst. Renal ultrasound may be of value for further evaluation. Assessment limited by lack of IV contrast. No significant calcificat ions. No hydronephrosis or hydroureter. AORTA AND RETROPERITONEUM: No aneurysm. No retroperitoneal masses or adenopathy. BOWEL AND PERITONEAL CAVITY: No obvious masses or inflammatory changes. No free fluid. APPENDIX: Normal. PELVIS, BLADDER, AND ABDOMINAL WALL:No abnormal masses. No free fluid. Bladder normal. BONES: No significant findings. OTHER: No other significant finding. IMPRESSION: There is a small focal area of relative increased density in the left kidney is noted ab ove most consistent with a hyperdense cyst. Renal ultrasound may be of value for further evaluation. No renal or ureteric calculi are identified. Other findings as noted above COMMENT: Quality ID # [id number]: Final reports with documentation of one or more dose reduction techniques (e.g., Automated exposure control, adjustment of the mA and/or kV according to patient size, use of iterative reconstruction technique) TECHNICAL DOCUMENTATION: JOB ID: [id number] [employer]- All Rights Reserved
[2017-02-01 19:10] VITALS: BP 123/80
--- NOTE | 2017-02-02 07:52 | EKG REPORT ---
SEVERITY:- ABNORMAL ECG - SINUS RHYTHM SUPRAVENTRICULAR BIGEMINY : Confirmed by: Keegan Luciano MD 02-Feb-2017 07:51:29
== END 2017-02-01 19:10 | disposition home or self-care (01) ==
LOC: ER 12:47
DX: N28.1 Cyst of kidney, acquired (principal); R10.9 Unspecified abdominal pain; M54.9 Dorsalgia, unspecified; R11.0 Nausea
CPT/HCPCS: 93005; 99284; 96372; 81025; 81001; 76380; 93010; J1885; J2550

== ENCOUNTER 2017-02-02 10:43 | Emergency (ER) | payer OTHER ==
[2017-02-02 10:48] VITALS: BP 132/84
--- NOTE | 2017-02-02 11:05 | ER Document Report ---
ED General - General Chief Complaint: Flank Pain Stated Complaint: BACK PAIN Time Seen by Provider: 02/02/17 10:58 Mode of Arrival: Ambulatory Information source: Patient Notes: Patient presents stating that she was seen here yesterday for left flank pain. Workup revealed that she has a left kidney cyst. She states [facility] She states she got no relief from [facility]. Patient states she had a cough work today due to the pain. Urinalysis yesterday showed no evidence of infection. The pain is constant and severe. It is located in the left flank. It radiates around to the left anterior abdomen. Nothing makes it better or worse. TRAVEL OUTSIDE OF THE [place] IN LAST 30 DAYS: No - Related Data Allergies/Adverse Reactions: amoxicillin Allergy (Verified 02/01/17 13:03) codeine Allergy (Verified 02/01/17 13:03) ondansetron HCl [From Zofran] Allergy (Verified 02/01/17 13:03) Penicillins Allergy (Verified 02/01/17 13:03) Tetanus Vaccines and Toxoid [Tetanus] Allergy (Verified 02/01/17 13:03) Past Medical History - General Information source: Patient - Social History Smoking Status: Current Every Day Smoker Chew tobacco use (# tins/day): No Frequency of alcohol use: None Drug Abuse: None Family History: CAD, COPD, DM, Hyperlipidemia, Thyroid Disfunction Patient has suicidal ideation: No Patient has homicidal ideation: No Renal/ Medical History: Reports: Hx Kidney Stones, Hx Ovarian Cysts, Hx Pelvic Inflammatory Disease. Denies: Hx Peritoneal Dialysis Musculoskeltal Medical History: Reports Hx Musculoskeletal Deformity, Reports Hx Musculoskeletal Trauma Psychiatric Medical History: Reports: Hx Anxiety, Hx Depression Past Surgical History: Reports: Hx Abdominal Surgery - removal of gallstone that was obstructing patient's bile duct, Hx Dilation and Curettage, Hx Gynecologic Surgery - D&C, Hx Oral Surgery - Immunizations Immunizations up to date: Yes Hx Diphtheria, Pertussis, Tetanus Vaccination: No - tetanus allergy Review of Systems - Review of Systems Constitutional: denies: Chills, Fever Cardiovascular: denies: Chest pain, Palpitations Respiratory: denies: Cough, Short of breath Gastrointestinal: Nausea. denies: Diarrhea, Vomiting Physical Exam - Vital signs Vitals: Temp Pulse Resp BP Pulse Ox 97.9 F 92 18 132/84 H 100 02/02/17 10:46 02/02/17 10:46 02/02/17 10:46 02/02/17 10:46 02/02/17 10:46 Interpretation: Hypertensive - General General appearance: Appears well, Alert In distress: None - HEENT Head: Normocephalic, Atraumatic Eyes: Normal Pupils: PERRL - Respiratory Respiratory status: No respiratory distress Chest status: Nontender Breath sounds: Normal Chest palpation: Normal - Cardiovascular Rhythm: Regular Heart sounds: Normal auscultation Murmur: No - Abdominal Inspection: Normal Distension: No distension Bowel sounds: Normal Tenderness: Nontender Organomegaly: No organomegaly - Back Back: Normal, Nontender - Extremities General upper extremity: Normal inspection, Nontender, Normal color, Normal ROM , Normal temperature General lower extremity: Normal inspection, Nontender, Normal color, Normal ROM , Normal temperature, Normal weight bearing. No: Adnois's sign - Neurological Neuro grossly intact: Yes Cognition: Normal Orientation: AAOx4 [place] Coma Scale Eye Opening: Spontaneous [place] Coma Scale Verbal: Oriented [place] Coma Scale Motor: Obeys Commands [place] Coma Scale Total: 15 Speech: Normal Motor strength normal: LUE, RUE, LLE, RLE Sensory: Normal - Psychological Associated symptoms: Normal affect, Normal mood - Skin Skin Temperature: Warm Skin Moisture: Dry Skin Color: Normal Course - Vital Signs Vital signs: Temp Pulse Resp BP Pulse Ox 97.9 F 92 18 132/84 H 100 02/02/17 10:46 02/02/17 10:46 02/02/17 10:46 02/02/17 10:46 02/02/17 10:46 Discharge - Discharge Clinical Impression: Left flank pain Condition: Stable Disposition: HOME, SELF-CARE Instructions: Oral Narcotic Medication ([facility]), Antinausea Medication ([facility]) Additional Instructions: Your blood pressure is mildly elevated. Please have this rechecked within 1 week by your doctor. Prescriptions: Hydrocodone/Acetaminophen [[place] 5-325 mg Tablet] 1 tab PO Q6 PRN #12 tablet PRN Reason: Metoclopramide HCl [Reglan 10 mg Tablet] 1 - 2 tab PO ASDIR PRN #25 tablet PRN Reason: Forms: Elevated Blood Pressure Referrals: KEISHA SANCHEZ MD [[facility]ED STAFF] - Follow up as needed
== END 2017-02-02 11:10 | disposition home or self-care (01) ==
LOC: ER 10:43
DX: N28.1 Cyst of kidney, acquired (principal); R10.9 Unspecified abdominal pain; R11.0 Nausea; F17.200 Nicotine dependence, unspecified, uncomplicated; Z88.5 Allergy status to narcotic agent; Z88.0 Allergy status to penicillin; Z88.7 Allergy status to serum and vaccine; Z87.442 Personal history of urinary calculi; Z87.42 Personal history of other diseases of the female genital tract; Z87.19 Personal history of other diseases of the digestive system
CPT/HCPCS: 99283

== ENCOUNTER 2017-02-03 19:14 | Emergency (ER) | payer OTHER ==
[2017-02-03] MEDS ORDERED: NORMAL SALINE 1000 ML 1,000 ML IV ONE (20:02)
--- NOTE | 2017-02-03 20:04 | ER Document Report ---
ED Medical Screen (RME) - General Chief Complaint: Flank Pain Stated Complaint: RECTAL PAIN Time Seen by Provider: 02/03/17 20:02 Notes: Patient states she had the sudden onset of left flank pain today that is gradually become worse. She also had diarrhea. This is pt's third visit in three days for left flank pain. TRAVEL OUTSIDE OF THE [place] IN LAST 30 DAYS: No - Related Data Allergies/Adverse Reactions: amoxicillin Allergy (Verified 02/03/17 19:48) codeine Allergy (Verified 02/03/17 19:48) ondansetron HCl [From Zofran] Allergy (Verified 02/03/17 19:48) Penicillins Allergy (Verified 02/03/17 19:48) Tetanus Vaccines and Toxoid [Tetanus] Allergy (Verified 02/03/17 19:48) Home Medications: Current Home Medications Duloxetine HCl [Cymbalta 20 Mg Capsule.Dr] 1 cap PO DAILY 02/03/17 [History] Past Medical History - Social History Chew tobacco use (# tins/day): No Frequency of alcohol use: None Drug Abuse: None Renal/ Medical History: Reports: Hx Kidney Stones, Hx Ovarian Cysts, Hx Pelvic Inflammatory Disease. Denies: Hx Peritoneal Dialysis Musculoskeltal Medical History: Reports Hx Musculoskeletal Deformity, Reports Hx Musculoskeletal Trauma Psychiatric Medical History: Reports: Hx Anxiety, Hx Depression Past Surgical History: Reports: Hx Abdominal Surgery - removal of gallstone that was obstructing patient's bile duct, Hx Dilation and Curettage, Hx Gynecologic Surgery - D&C, Hx Oral Surgery - Immunizations Immunizations up to date: Yes Hx Diphtheria, Pertussis, Tetanus Vaccination: No - tetanus allergy History of Influenza Vaccine for 12/2016 - 05/2017 Season: No Physical Exam - Vital signs Vitals: Temp Pulse Resp BP Pulse Ox 98.5 F 119 H 22 H 135/95 H 100 02/03/17 19:14 02/03/17 19:14 02/03/17 19:14 02/03/17 19:14 02/03/17 19:14 Course - Vital Signs Vital signs: Temp Pulse Resp BP Pulse Ox 98.5 F 119 H 22 H 135/95 H 100 02/03/17 19:14 02/03/17 19:14 02/03/17 19:14 02/03/17 19:14 02/03/17 19:14
--- NOTE | 2017-02-03 20:16 | ER Document Report ---
ED GI/ - General Chief Complaint: Flank Pain Stated Complaint: RECTAL PAIN Time Seen by Provider: 02/03/17 20:02 Mode of Arrival: Ambulatory Information source: Patient Notes: 31 yo smoker, no drugs, reare ETIH, female c/o increased sharp left flank pain that radiates to LLQ at 3:30 pm this afternoon. 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 Constant since. walking makes it worse. Seen in ER several days ago, thought it was a kidney stone, dx with renal cyst. Pain 4/5 now. Urinary frequency yesterday, no dysuria, nausea , no vomiting, diarrhea watery today- 5-6 today. No vaginal discharge. LMP- 2006. 5 year IUD. No fever. No recent antibiotics. No hx crohns, colitis, c diff. TRAVEL OUTSIDE OF THE [place] IN LAST 30 DAYS: No - Related Data Allergies/Adverse Reactions: amoxicillin Allergy (Verified 02/03/17 19:48) codeine Allergy (Verified 02/03/17 19:48) ondansetron HCl [From Zofran] Allergy (Verified 02/03/17 19:48) Penicillins Allergy (Verified 02/03/17 19:48) Tetanus Vaccines and Toxoid [Tetanus] Allergy (Verified 02/03/17 19:48) Home Medications: Current Home Medications Duloxetine HCl [Cymbalta 20 Mg Capsule.Dr] 1 cap PO DAILY 02/03/17 [History] Past Medical History - General Information source: Patient - Social History Smoking Status: Current Every Day Smoker Chew tobacco use (# tins/day): No Frequency of alcohol use: None Drug Abuse: None Family History: CAD, COPD, DM, Hyperlipidemia, Thyroid Disfunction Patient has suicidal ideation: No Patient has homicidal ideation: No Renal/ Medical History: Reports: Hx Kidney Stones, Hx Ovarian Cysts, Hx Pelvic Inflammatory Disease. Denies: Hx Peritoneal Dialysis Musculoskeltal Medical History: Reports Hx Musculoskeletal Trauma Psychiatric Medical History: Reports: Hx Anxiety, Hx Depression Past Surgical History: Reports: Hx Abdominal Surgery - removal of gallstone that was obstructing patient's bile duct, Hx Dilation and Curettage, Hx Oral Surgery - Immunizations Immunizations up to date: Yes Hx Diphtheria, Pertussis, Tetanus Vaccination: No - tetanus allergy Review of Systems - Review of Systems Constitutional: No symptoms reported EENT: No symptoms reported Cardiovascular: No symptoms reported Respiratory: No symptoms reported Gastrointestinal: See HPI Genitourinary: See HPI Female Genitourinary: No symptoms reported Musculoskeletal: See HPI Skin: No symptoms reported Hematologic/Lymphatic: No symptoms reported Neurological/Psychological: No symptoms reported Physical Exam - Vital signs Vitals: Temp Pulse Resp BP Pulse Ox 98.5 F 119 H 22 H 135/95 H 100 02/03/17 19:14 02/03/17 19:14 02/03/17 19:14 02/03/17 19:14 02/03/17 19:14 Interpretation: Normal - General General appearance: Appears well, Alert - HEENT Head: Normocephalic, Atraumatic Eyes: Normal Pupils: PERRL - Respiratory Respiratory status: No respiratory distress Chest status: Nontender Breath sounds: Normal Chest palpation: Normal - Cardiovascular Rhythm: Regular Heart sounds: Normal auscultation Murmur: No - Abdominal Inspection: Normal Distension: No distension Bowel sounds: Normal Tenderness: Tender - mild LLQ Organomegaly: No organomegaly - Back Back: Normal, Tender - over left SI joint and left lumbar muscle - Extremities General upper extremity: Normal inspection, Nontender, Normal color, Normal ROM , Normal temperature General lower extremity: Normal inspection, Nontender, Normal color, Normal ROM , Normal temperature, Normal weight bearing. No: Adonis's sign - Neurological Neuro grossly intact: Yes Cognition: Normal Orientation: AAOx4 [place] Coma Scale Eye Opening: Spontaneous [place] Coma Scale Verbal: Oriented [place] Coma Scale Motor: Obeys Commands [place] Coma Scale Total: 15 Speech: Normal Motor strength normal: LUE, RUE, LLE, RLE Sensory: Normal - Psychological Associated symptoms: Normal affect, Normal mood - Skin Skin Temperature: Warm Skin Moisture: Dry Skin Color: Normal Course - Re-evaluation Re-evalutation: 02/03/17 21:46 renal US 8 x 9x 7 mm cyst left renal lower pole. Labs OK - Vital Signs Vital signs: Temp Pulse Resp BP Pulse Ox 97.8 F 76 16 114/78 100 02/03/17 22:04 02/03/17 22:04 02/03/17 22:04 02/03/17 22:04 02/03/17 22:04 - Laboratory Result Diagrams: 02/03/17 20:47 02/03/17 20:47 Laboratory results interpreted by me: 02/03/17 02/03/17 02/03/17 20:47 20:47 21:17 WBC 12.1 H Seg Neutrophils % 78.3 H Absolute Neutrophils 9.5 H AST 54 H ALT 81 H Urine Protein 30 H Urine Urobilinogen 2.0 H Urine Ascorbic Acid 40 H Discharge - Discharge Clinical Impression: LLQ pain, Renal cyst, Liver enzyme elevation Diarrhea Qualifiers: Diarrhea type: unspecified type Qualified Code(s): R19.7 - Diarrhea, unspecified Left low back pain Qualifiers: Chronicity: unspecified Sciatica presence: without sciatica Qualified Code(s): M54.5 - Low back pain Condition: Good Disposition: HOME, SELF-CARE Instructions: Abdominal Pain ([facility]), Antinausea Medication ([facility]), Diarrhea, Nonspecific ([facility]), Ibuprofen (General) ([facility]), Liver Function Abnormality ([facility]), Low Back Pain ([facility]), Toradol Injection ([facility]) Additional Instructions: see your doctor for follow up on the renal cyst and slight elevation of your liver enzymes plenty of fluids by mouth heat to low back motrin tylenol to er if worsening pain, diarrhea, vomiting, dehydration, fever or any concerns Prescriptions: Ibuprofen [Motrin 600 mg Tablet] 600 mg PO Q8HP PRN #30 tablet PRN Reason: Referrals: SINTIA REYNOSO MD [Primary Care Provider] - Follow up as needed
[2017-02-03] MEDS ORDERED: METOCLOPRAMIDE HCL INJ/PF 10 MG/2 ML SDV IV ONE (20:32)
[2017-02-03] MEDS ORDERED: KETOROLAC TROMETHAMINE INJ/PF 30 MG/1 ML SDV IV ONE (20:32)
[2017-02-03 20:56] LABS: ABSOLUTE BASOPHILS # (AUTO) 0.1 10^3/uL (0.0-0.2); ABSOLUTE EOSINOPHILS # (AUTO) 0.1 10^3/uL (0.0-0.6); ABSOLUTE LYMPHOCYTES (AUTO) 1.9 10^3/uL (0.5-4.7); ABSOLUTE MONOCYTES (AUTO) 0.5 10^3/uL (0.1-1.4); ABSOLUTE NEUT (AUTO) 9.5 10^3/uL (1.7-8.2); BASOPHILS % (AUTO) 0.8 % (0-2); EOSINOPHILS % (AUTO) 0.5 % (0-6); HEMATOCRIT 40.8 % (36.0-47.0); HEMOGLOBIN 14.1 g/dL (12.0-15.5); HGB HCT DIFFERENCE 1.5; LYMPHOCYTES % (AUTO) 15.9 % (13-45); MEAN CORPUSCULAR HEMOGLOBIN 31.2 pg (27.0-33.4); MEAN CORPUSCULAR HGB CONC 34.5 g/dL (32.0-36.0); MEAN CORPUSCULAR VOLUME 90 fl (80-97); MONOCYTES % (AUTO) 4.5 % (3-13); RED BLOOD COUNT 4.51 10^6/uL (3.72-5.28); RED CELL DISTRIBUTION WIDTH 13.4 % (11.5-14.0); SEGMENTED NEUTROPHILS % (AUTO) 78.3 % (42-78); WHITE BLOOD COUNT 12.1 10^3/uL (4.0-10.5)
[2017-02-03 21:13] LABS: ALANINE AMINOTRANSFERASE 81 U/L (9-52); ALBUMIN 4.8 g/dL (3.5-5.0); ALKALINE PHOSPHATASE 96 U/L (38-126); ANION GAP 15 (5-19); ASPARTATE AMINO TRANSFERASE 54 U/L (14-36); BILIRUBIN,DIRECT 0.3 mg/dL (0.0-0.4); BILIRUBIN,TOTAL 0.4 mg/dL (0.2-1.3); BLOOD UREA NITROGEN 7 mg/dL (7-20); CALCIUM 9.7 mg/dL (8.4-10.2); CARBON DIOXIDE 23 mmol/L (22-30); CHLORIDE 106 mmol/L (98-107); CREATININE RESULT 0.61 mg/dL (0.52-1.25); GLUCOSE 86 mg/dL (75-110); POTASSIUM 4.1 mmol/L (3.6-5.0); TOTAL PROTEIN 7.2 g/dL (6.3-8.2)
[2017-02-03 21:42] LABS: APPEARANCE,URINE CLOUDY; BILIRUBIN,URINE NEGATIVE (NEGATIVE); GLUCOSE, URINE NEGATIVE (NEGATIVE); KETONES,URINE NEGATIVE (NEGATIVE); LEUKOCYTE ESTERASE,URINE NEGATIVE (NEGATIVE); NITRITE,URINE NEGATIVE (NEGATIVE); PROTEIN,URINE 30 mg/dL (NEGATIVE); URINE SPECIFIC GRAVITY 1.021
--- NOTE | 2017-02-03 21:42 | RADIOLOGY REPORT (SQ) ---
EXAM DESCRIPTION: U/S RETROPERITON (RENAL/AORTA) COMPLETED DATE/TIME: 02/03/2017 9:17 pm REASON FOR STUDY: ct showed renal cyst/jacobo 02-01 COMPARISON: 02/01/2017 CT scan TECHNIQUE: Dynamic and static grayscale images acquired of the kidneys and bladder and recorded on P ACS. Additional selected color Doppler and spectral images recorded. LIMITATIONS: None. FINDINGS: RIGHT KIDNEY: Normal size. Normal echogenicity. No solid or suspicious masses. No hydronep hrosis. No calcifications. LEFT KIDNEY: Normal size. Normal echogenicity. 8 x 9 x 7 mm cyst on the left renal lower pole. No solid or suspicious masses. No hydronephrosis. No calcifications. BLADDER: No masses. OTHER FINDINGS: No other significant finding. IMPRESSION: 8 x 9 x 7 mm cyst on the left renal lower pole. No solid or suspicious masses. No hydr onephrosis. TECHNICAL DOCUMENTATION: JOB ID: [id number] [employer]- All Rights Reserved
[2017-02-03 22:06] VITALS: BP 114/78
== END 2017-02-03 22:04 | disposition home or self-care (01) ==
LOC: ER 19:14
DX: Q61.01 Congenital single renal cyst (principal); R74.8 Abnormal levels of other serum enzymes; R10.32 Left lower quadrant pain; R35.0 Frequency of micturition; R19.7 Diarrhea, unspecified; M54.5 Low back pain; F17.200 Nicotine dependence, unspecified, uncomplicated; Z88.0 Allergy status to penicillin; Z88.5 Allergy status to narcotic agent; Z88.8 Allergy status to other drugs, medicaments and biological substances; Z88.7 Allergy status to serum and vaccine
CPT/HCPCS: 99284; 96361; 96374; 96375; 36415; 85025; 80053; 81001; 76770; J1885; J2765; J7030

== ENCOUNTER 2017-04-28 07:56 | Emergency (ER) | payer OTHER ==
[2017-04-28 08:02] VITALS: BP 119/73
[2017-04-28 08:57] LABS: ABSOLUTE EOSINOPHILS # (AUTO) 0.1 10^3/uL (0.0-0.6); ABSOLUTE LYMPHOCYTES (AUTO) 1.5 10^3/uL (0.5-4.7); ABSOLUTE MONOCYTES (AUTO) 0.4 10^3/uL (0.1-1.4); BASOPHILS % (AUTO) 0.6 % (0-2); EOSINOPHILS % (AUTO) 1.9 % (0-6); HEMATOCRIT 41.7 % (36.0-47.0); HEMOGLOBIN 14.2 g/dL (12.0-15.5); LYMPHOCYTES % (AUTO) 21.3 % (13-45); MEAN CORPUSCULAR HEMOGLOBIN 30.6 pg (27.0-33.4); MEAN CORPUSCULAR HGB CONC 33.9 g/dL (32.0-36.0); MEAN CORPUSCULAR VOLUME 90 fl (80-97); MONOCYTES % (AUTO) 5.4 % (3-13); PLATELET COUNT 259 10^3/uL (150-450); RED BLOOD COUNT 4.63 10^6/uL (3.72-5.28); RED CELL DISTRIBUTION WIDTH 12.4 % (11.5-14.0); SEGMENTED NEUTROPHILS % (AUTO) 70.8 % (42-78); TOTAL CELLS COUNTED % (AUTO) 100 %
[2017-04-28 09:17] LABS: APPEARANCE,URINE CLOUDY; BILIRUBIN,URINE NEGATIVE (NEGATIVE); COLOR,URINE YELLOW; GLUCOSE, URINE NEGATIVE (NEGATIVE); KETONES,URINE NEGATIVE (NEGATIVE); LEUKOCYTE ESTERASE,URINE NEGATIVE (NEGATIVE); NITRITE,URINE NEGATIVE (NEGATIVE); PROTEIN,URINE 30 mg/dL (NEGATIVE); UROBILINOGEN,URINE NEGATIVE mg/dL (<2.0)
[2017-04-28 09:21] LABS: ALANINE AMINOTRANSFERASE 14 U/L (9-52); ALBUMIN 4.5 g/dL (3.5-5.0); ALKALINE PHOSPHATASE 69 U/L (38-126); ANION GAP 12 (5-19); ASPARTATE AMINO TRANSFERASE 13 U/L (14-36); BILIRUBIN,DIRECT 0.1 mg/dL (0.0-0.4); BILIRUBIN,TOTAL 0.1 mg/dL (0.2-1.3); BLOOD UREA NITROGEN 12 mg/dL (7-20); CALCIUM 9.3 mg/dL (8.4-10.2); CARBON DIOXIDE 21 mmol/L (22-30); CHLORIDE 112 mmol/L (98-107); GLUCOSE 102 mg/dL (75-110); LIPASE 146.6 U/L (23-300); POTASSIUM 4.5 mmol/L (3.6-5.0); SODIUM 145.3 mmol/L (137-145); TOTAL PROTEIN 6.4 g/dL (6.3-8.2)
[2017-04-28] MEDS ORDERED: PROMETHAZINE HCL 25 MG TABLET PO ONE (09:46)
--- NOTE | 2017-04-28 09:46 | ER Document Report ---
ED GI/ - General Chief Complaint: Abdominal Pain Stated Complaint: BACK PAIN Time Seen by Provider: 04/28/17 08:18 Mode of Arrival: Ambulatory Information source: Patient Notes: Patient is a 31-year-old female who presents to the ER today for bloating, left upper back pain and wondering if she may be . Patient states that she had menstrual cycle 2 weeks ago but is now having some vaginal Dark red blood with some mucus and has had to wear a tampon for the past day and a half. She states that she bloats from time to time and it "looks like I am ." She is not on any control. She is sexually active.she denies any nausea, vomiting, diarrhea. She states that her last bowel movement was last night and normal. She denies any dysuria or hematuria otherwise. TRAVEL OUTSIDE OF THE [place] IN LAST 30 DAYS: No - Related Data Allergies/Adverse Reactions: amoxicillin Allergy (Verified 04/28/17 07:59) codeine Allergy (Verified 04/28/17 07:59) ondansetron HCl [From Zofran] Allergy (Verified 04/28/17 07:59) Penicillins Allergy (Verified 04/28/17 07:59) Tetanus Vaccines and Toxoid [Tetanus] Allergy (Verified 04/28/17 07:59) Past Medical History - General Information source: Patient - Social History Smoking Status: Smoker,Current Status Unk Chew tobacco use (# tins/day): No Frequency of alcohol use: Rare Drug Abuse: None Family History: CAD, COPD, DM, Hyperlipidemia, Thyroid Disfunction Patient has suicidal ideation: No Patient has homicidal ideation: No Renal/ Medical History: Reports: Hx Kidney Stones, Hx Ovarian Cysts, Hx Pelvic Inflammatory Disease. Denies: Hx Peritoneal Dialysis Musculoskeltal Medical History: Reports Hx Musculoskeletal Deformity, Reports Hx Musculoskeletal Trauma Psychiatric Medical History: Reports: Hx Anxiety, Hx Depression Past Surgical History: Reports: Hx Abdominal Surgery - removal of gallstone that was obstructing patient's bile duct, Hx Dilation and Curettage, Hx Gynecologic Surgery - D & C, Hx Oral Surgery - Immunizations Immunizations up to date: Yes Hx Diphtheria, Pertussis, Tetanus Vaccination: No - tetanus allergy Review of Systems - Review of Systems Constitutional: No symptoms reported EENT: No symptoms reported Cardiovascular: No symptoms reported Respiratory: No symptoms reported Gastrointestinal: See HPI Genitourinary: See HPI Female Genitourinary: No symptoms reported Musculoskeletal: No symptoms reported Skin: No symptoms reported Hematologic/Lymphatic: No symptoms reported Neurological/Psychological: No symptoms reported Physical Exam - Vital signs Vitals: Temp Pulse Resp BP Pulse Ox 97.9 F 83 14 119/73 100 04/28/17 08:01 04/28/17 08:01 04/28/17 08:01 04/28/17 08:01 04/28/17 08:01 - Notes Notes: PHYSICAL EXAMINATION: GENERAL: Well-appearing and in no acute distress. HEAD: Atraumatic, normocephalic. EYES: Pupils equal round and reactive to light, extraocular movements intact, sclera anicteric, conjunctiva are normal. ENT: ear canals without erythema or foreign body, TMs pearly jimenez with good bony landmarks, nares patent, oropharynx clear without exudates. Moist mucous membranes. NECK: Normal range of motion, supple without lymphadenopathy LUNGS: CTAB and equal. No wheezes rales or rhonchi. HEART: Regular rate and rhythm without murmurs ABDOMEN: Bloated, but soft, no tenderness. No guarding, no rebound BACK: no vertebral tenderness, normal ROM GI/: no CVA tenderness EXTREMITIES: Normal range of motion, no pitting edema. No cyanosis. NEUROLOGICAL: Cranial nerves grossly intact. Normal sensory/motor exams. PSYCH: Normal mood, normal affect. SKIN: Warm, Dry, normal turgor, no rashes or lesions noted Course - Re-evaluation Re-evalutation: 04/28/17 09:44 White blood cell count is normal, lipase is normal, negative today, nontender abdominal exam, benign. Urinalysis reveals 32White blood cells. negative for nitrites. I will place patient on an antibiotic to treat for UTI and send a urine culture. 04/28/17 09:45 - Vital Signs Vital signs: Temp Pulse Resp BP Pulse Ox 97.9 F 83 14 119/73 100 04/28/17 08:01 04/28/17 08:01 04/28/17 08:01 04/28/17 08:01 04/28/17 08:01 - Laboratory Result Diagrams: 04/28/17 08:30 04/28/17 08:30 Laboratory results interpreted by me: 04/28/17 04/28/17 08:30 08:30 Sodium 145.3 H Chloride 112 H Carbon Dioxide 21 L Total Bilirubin 0.1 L AST 13 L Urine Protein 30 H Urine Blood LARGE H Discharge - Discharge Clinical Impression: UTI (urinary tract infection) Qualifiers: Urinary tract infection type: site unspecified Hematuria presence: with hematuria Qualified Code(s): N39.0 - Urinary tract infection, site not specified ; R31.9 - Hematuria, unspecified; R31.9 - Hematuria, unspecified Condition: Stable Disposition: HOME, SELF-CARE Instructions: Urinary Tract Infection ([facility]) Additional Instructions: Return immediately for any new or worsening symptoms. Follow up with primary care provider, call tomorrow to make followup appointment. Drink plenty of fluids. Prescriptions: Ciprofloxacin HCl [Cipro 500 mg Tablet] 500 mg PO BID #20 tablet Promethazine HCl [Phenergan 25 mg Tablet] 1 - 2 tab PO Q6H PRN #15 tablet PRN Reason:
== END 2017-04-28 10:06 | disposition home or self-care (01) ==
LOC: ER 07:56
DX: N39.0 Urinary tract infection, site not specified (principal); R31.9 Hematuria, unspecified; M54.89 Other dorsalgia; R14.0 Abdominal distension (gaseous); Z32.02 Encounter for pregnancy test, result negative; Z88.0 Allergy status to penicillin; Z88.5 Allergy status to narcotic agent; Z88.8 Allergy status to other drugs, medicaments and biological substances; Z88.7 Allergy status to serum and vaccine
CPT/HCPCS: 36415; 80053; 81001; 83690; 84703; 85025; 99284

== ENCOUNTER 2017-11-19 11:40 | Emergency (ER) | payer OTHER ==
--- NOTE | 2017-11-19 11:44 | ER Document Report ---
ED Medical Screen (RME) - General Chief Complaint: Abscess Stated Complaint: POSSIBLE ABSCESS Time Seen by Provider: 11/19/17 11:42 Mode of Arrival: Ambulatory Information source: Patient Notes: 31-year-old female presents to ED for complaint of abscess to the left axilla. She states it has been growing for the last 3 days. She states she had one in the same area about 1-1/2-2 months ago. She states she thought she could stay at home but the pain is gotten worse. She states she has been doing Tylenol with no relief. Patient is alert and oriented respirations regular and unlabored speaking in full sentences walk with a even steady gait. I have greeted and performed a rapid initial assessment of this patient. A comprehensive ED assessment and evaluation of the patient, analysis of test results and completion of medical decision making process will be conducted by an additional ED providers. TRAVEL OUTSIDE OF THE [place] IN LAST 30 DAYS: No - Related Data Allergies/Adverse Reactions: amoxicillin Allergy (Verified 04/28/17 07:59) codeine Allergy (Verified 04/28/17 07:59) ondansetron HCl [From Zofran] Allergy (Verified 04/28/17 07:59) Penicillins Allergy (Verified 04/28/17 07:59) Tetanus Vaccines and Toxoid [Tetanus] Allergy (Verified 04/28/17 07:59) Past Medical History Renal/ Medical History: Reports: Hx Kidney Stones, Hx Ovarian Cysts, Hx Pelvic Inflammatory Disease. Denies: Hx Peritoneal Dialysis Musculoskeltal Medical History: Reports Hx Musculoskeletal Deformity, Reports Hx Musculoskeletal Trauma Psychiatric Medical History: Reports: Hx Anxiety, Hx Depression Past Surgical History: Reports: Hx Abdominal Surgery - removal of gallstone that was obstructing patient's bile duct, Hx Dilation and Curettage, Hx Gynecologic Surgery - D & C, Hx Oral Surgery - Immunizations Immunizations up to date: Yes Hx Diphtheria, Pertussis, Tetanus Vaccination: No - tetanus allergy History of Influenza Vaccine for 12/2016 - 05/2017 Season: No
[2017-11-19 11:49] VITALS: BP 116/71
--- NOTE | 2017-11-19 12:22 | ER Document Report ---
ED General - General Chief Complaint: Abscess Stated Complaint: POSSIBLE ABSCESS Time Seen by Provider: 11/19/17 11:42 Mode of Arrival: Ambulatory TRAVEL OUTSIDE OF THE [place] IN LAST 30 DAYS: No - HPI Patient complains to provider of: abscess Onset: Other - 3 days of worsening swelling and pain in the left axilla with a history of an abscess in the past. Denies any fevers or chills, denies any other significant past medical history. Does have the previously noted allergies. - Related Data Allergies/Adverse Reactions: amoxicillin Allergy (Verified 04/28/17 07:59) codeine Allergy (Verified 04/28/17 07:59) ondansetron HCl [From Zofran] Allergy (Verified 04/28/17 07:59) Penicillins Allergy (Verified 04/28/17 07:59) Tetanus Vaccines and Toxoid [Tetanus] Allergy (Verified 04/28/17 07:59) Past Medical History - General Information source: Patient - Social History Smoking Status: Current Every Day Smoker Chew tobacco use (# tins/day): Yes Frequency of alcohol use: None Drug Abuse: None Family History: CAD, COPD, DM, Hyperlipidemia, Thyroid Disfunction Patient has suicidal ideation: No Patient has homicidal ideation: No Renal/ Medical History: Reports: Hx Kidney Stones, Hx Ovarian Cysts, Hx Pelvic Inflammatory Disease. Denies: Hx Peritoneal Dialysis Musculoskeletal Medical History: Reports Hx Musculoskeletal Deformity, Reports Hx Musculoskeletal Trauma Psychiatric Medical History: Reports: Hx Anxiety, Hx Depression Past Surgical History: Reports: Hx Abdominal Surgery - removal of gallstone that was obstructing patient's bile duct, Hx Dilation and Curettage, Hx Gynecologic Surgery - D & C, Hx Oral Surgery - Immunizations Immunizations up to date: Yes Hx Diphtheria, Pertussis, Tetanus Vaccination: No - tetanus allergy Review of Systems - Review of Systems -: Yes All other systems reviewed and negative Physical Exam - Vital signs Vitals: Temp Pulse Resp BP Pulse Ox 97.7 F 95 16 116/71 100 11/19/17 11:45 11/19/17 11:45 11/19/17 11:45 11/19/17 11:45 11/19/17 11:45 - General General appearance: Appears well In distress: None - HEENT Head: Normocephalic Eyes: Normal Conjunctiva: Normal Cornea: Normal - Respiratory Respiratory status: No respiratory distress Chest status: Nontender Breath sounds: Normal Chest palpation: Normal - Cardiovascular Rhythm: Regular Heart sounds: Normal auscultation Murmur: No - Abdominal Inspection: Normal Distension: No distension Tenderness: Nontender Organomegaly: No organomegaly - Back Back: Normal - Extremities General upper extremity: Normal inspection, Nontender, Normal ROM, Normal strength General lower extremity: Normal inspection, Nontender, Normal ROM, Normal strength, Normal weight bearing Arm: Other - obviuous swollen abscess in the left arm pit Course - Re-evaluation Re-evalutation: 11/19/17 13:02 Young woman with an abscess in the left axilla. Drained with ultrasound guidance, copious purulent discharge appreciated. No systemic signs of infection at this time do not believe there is any indication for blood work at this time. We will encouraged to follow-up for a wound check this week. Patient be discharged with a prescription for Bactrim as well as 3 days of antibiotics and hand. She will also be given Warren for pain. She is in agreement with this plan at this time. - Vital Signs Vital signs: Temp Pulse Resp BP Pulse Ox 97.7 F 95 16 116/71 100 11/19/17 11:45 11/19/17 11:45 11/19/17 11:45 11/19/17 11:45 11/19/17 11:45 Procedures - Incision and Drainage Left Upper Arm Type: Simple Anesthetic type: 1% Lidocaine w/epi mL's of anesthetic: 10 Blade size: 11 I&D procedure: Betadine prep applied Incision Method: Incision made by scalpel Amount/type of drainage: copious Discharge - Discharge Clinical Impression: Abscess Condition: Good Disposition: HOME, SELF-CARE Instructions: Abscess ([facility]), Post Incision and Drainage, Trimethoprim-Sulfa ( [facility]) Additional Instructions: You had an abscess drained in the emergency department, use the antibiotic prescribed to you as directed. Use the pain medication only as needed. You may use Tylenol and Motrin at home as needed for your pain. Make sure that you are using hot compresses twice daily for at least 20 minutes to try and help drain this. Return for worsening fevers or chills. Have your wound checked this week by a doctor. Prescriptions: Sulfamethoxazole/Trimethoprim [Bactrim Ds Tablet] 1 each PO BID 3 Days #6 tablet Sulfamethoxazole/Trimethoprim [Bactrim Ds Tablet] 1 each PO BID 7 Days #14 tablet
[2017-11-19] MEDS ORDERED: HYDROCODONE/ACETAMINOPHEN 5-325 MG (6 TAB/ER DISP) PO PRN (12:23)
[2017-11-19] MEDS ORDERED: HYDROCODONE/ACETAMINOPHEN 5-325 MG TABLET PO ONE (12:23)
[2017-11-19] MEDS ORDERED: LIDOCAINE 1%/EPINEPHRINE INJ 20 ML VIAL INJ ONE (12:24)
== END 2017-11-19 13:28 | disposition home or self-care (01) ==
LOC: ER 11:40
DX: L02.412 Cutaneous abscess of left axilla (principal); F17.200 Nicotine dependence, unspecified, uncomplicated; Z88.0 Allergy status to penicillin; Z88.5 Allergy status to narcotic agent; Z88.8 Allergy status to other drugs, medicaments and biological substances; Z88.7 Allergy status to serum and vaccine
CPT/HCPCS: 99283

== ENCOUNTER 2018-02-13 09:30 | Emergency (ER) | payer OTHER, MEDICAID ==
[2018-02-13 09:35] VITALS: BP 113/60
[2018-02-13 10:22] LABS: APPEARANCE,URINE SLIGHTLY-CLOUDY; BILIRUBIN,URINE NEGATIVE (NEGATIVE); COLOR,URINE YELLOW; GLUCOSE, URINE NEGATIVE (NEGATIVE); KETONES,URINE NEGATIVE (NEGATIVE); LEUKOCYTE ESTERASE,URINE TRACE (NEGATIVE); NITRITE,URINE NEGATIVE (NEGATIVE); PROTEIN,URINE NEGATIVE (NEGATIVE); URINE SPECIFIC GRAVITY 1.011
[2018-02-13 11:10] LABS: ABSOLUTE EOSINOPHILS # (AUTO) 0.1 10^3/uL (0.0-0.6); ABSOLUTE LYMPHOCYTES (AUTO) 2.2 10^3/uL (0.5-4.7); ABSOLUTE MONOCYTES (AUTO) 0.4 10^3/uL (0.1-1.4); ABSOLUTE NEUT (AUTO) 5.2 10^3/uL (1.7-8.2); BASOPHILS % (AUTO) 0.4 % (0-2); EOSINOPHILS % (AUTO) 1.8 % (0-6); HEMATOCRIT 37.1 % (36.0-47.0); HEMOGLOBIN 13.1 g/dL (12.0-15.5); LYMPHOCYTES % (AUTO) 27.3 % (13-45); MEAN CORPUSCULAR HEMOGLOBIN 31.4 pg (27.0-33.4); MEAN CORPUSCULAR HGB CONC 35.3 g/dL (32.0-36.0); MEAN CORPUSCULAR VOLUME 89 fl (80-97); MONOCYTES % (AUTO) 4.8 % (3-13); PLATELET COUNT 310 10^3/uL (150-450); RED BLOOD COUNT 4.16 10^6/uL (3.72-5.28); SEGMENTED NEUTROPHILS % (AUTO) 65.7 % (42-78); TOTAL CELLS COUNTED % (AUTO) 100 %
[2018-02-13 11:26] LABS: ANION GAP 13 (5-19); BLOOD UREA NITROGEN 3 mg/dL (7-20); CALCIUM 9.4 mg/dL (8.4-10.2); CARBON DIOXIDE 23 mmol/L (22-30); CHLORIDE 105 mmol/L (98-107); GLUCOSE 94 mg/dL (75-110); POTASSIUM 4.5 mmol/L (3.6-5.0); SODIUM 141.1 mmol/L (137-145)
--- NOTE | 2018-02-13 11:56 | RADIOLOGY REPORT (SQ) ---
EXAM DESCRIPTION: U/S OB 14+ TA/1 GEST W/DOPPLER COMPLETED DATE/TIME: 02/13/2018 11:34 am REASON FOR STUDY: 19 wk abd pain COMPARISON: None. TECHNIQUE: Static and Dynamic grayscale imaging performed of gravid uterus using transabdominal appr oach. Additional selected color Doppler and spectral images recorded. All stored on PACS. LIMITATIONS: None. FINDINGS: FETUSES SEEN:1 EGA: 19 weeks, 3 days Calculated using BPD,FL,HC,AC documented on images. TRACY: 07/07/2018 EFW: 290 grams PERCENTILE: 63 ALFREDO: Adequate amount. PLACENTA: Anterior. PRESENTATION: Breech. ANATOMY: HEART RATE: 145 beats per minute. FOUR CHAMBER HEART: Visualized. THREE VESSEL CORD: Yes. CORD INSERTION: Visualized. KIDNEYS AND BLADDER: Visualized. Appear normal. STOMACH: Visualized. Appears normal. SPINE: Normal as visualized. BRAIN AND LATERAL VENTRICLES: Visualized. Appear normal. OTHER: No other significant finding. MATERNAL ADNEXA: Maternal ovaries not visualized. CERVICAL LENGTH: 3.9 Closed. OTHER: No other significant finding. IMPRESSION: LIVING INTRAUTERINE . ESTIMATED GESTATIONAL AGE 19 weeks, 3 days NO VISUALIZED ANOMALIES. Trimester of : Second trimester - 13 weeks 1 day to 27 weeks 6 days. TECHNICAL DOCUMENTATION: JOB ID: [id number] [employer]- All Rights Reserved Reading location - IP/workstation name: [email or web address]
--- NOTE | 2018-02-13 12:09 | ER Document Report ---
ED General - General Chief Complaint: Abdominal Cramping Stated Complaint: ABDOMINAL CRAMPING Time Seen by Provider: 02/13/18 10:22 TRAVEL OUTSIDE OF THE [place] IN LAST 30 DAYS: No - HPI Patient complains to provider of: Lower abdominal pain Notes: Patient coming in with bilateral adnexa pain ongoing for the last few days. Patient states she is a . Patient states she is approximately 19 weeks long has not received any maternity care has an appointment to see [facility] tomorrow. Patient denies any vaginal bleeding vaginal spotting. Denies any dysuria. Denies any fevers chills nausea vomiting or diarrhea. Patient denies any trauma. Patient otherwise resting comfortably upon my evaluation denies any past medical history. - Related Data Allergies/Adverse Reactions: amoxicillin Allergy (Verified 04/28/17 07:59) codeine Allergy (Verified 04/28/17 07:59) ondansetron HCl [From Zofran] Allergy (Verified 04/28/17 07:59) Penicillins Allergy (Verified 04/28/17 07:59) Tetanus Vaccines and Toxoid [Tetanus] Allergy (Verified 04/28/17 07:59) Past Medical History - Social History Smoking Status: Current Every Day Smoker Frequency of alcohol use: None Drug Abuse: None Family History: CAD, COPD, DM, Hyperlipidemia, Thyroid Disfunction Patient has suicidal ideation: No Patient has homicidal ideation: No Renal/ Medical History: Reports: Hx Kidney Stones, Hx Ovarian Cysts, Hx Pelvic Inflammatory Disease. Denies: Hx Peritoneal Dialysis Musculoskeletal Medical History: Reports Hx Musculoskeletal Deformity, Reports Hx Musculoskeletal Trauma Psychiatric Medical History: Reports: Hx Anxiety, Hx Depression Past Surgical History: Reports: Hx Abdominal Surgery - removal of gallstone that was obstructing patient's bile duct, Hx Dilation and Curettage, Hx Gynecologic Surgery - D & C, Hx Oral Surgery - Immunizations Immunizations up to date: Yes Hx Diphtheria, Pertussis, Tetanus Vaccination: No - tetanus allergy Review of Systems - Review of Systems Constitutional: No symptoms reported EENT: No symptoms reported Cardiovascular: No symptoms reported Respiratory: No symptoms reported Gastrointestinal: Abdominal pain Genitourinary: No symptoms reported Female Genitourinary: No symptoms reported Musculoskeletal: No symptoms reported Skin: No symptoms reported Hematologic/Lymphatic: No symptoms reported Neurological/Psychological: No symptoms reported -: Yes All other systems reviewed and negative Physical Exam - Vital signs Vitals: Temp Pulse Resp BP Pulse Ox 98.0 F 76 15 113/60 100 02/13/18 09:33 02/13/18 09:33 02/13/18 09:33 02/13/18 09:33 02/13/18 09:33 Interpretation: Normal - General General appearance: Appears well, Alert - HEENT Head: Normocephalic, Atraumatic Eyes: Normal Pupils: PERRL - Respiratory Respiratory status: No respiratory distress Chest status: Nontender Breath sounds: Normal Chest palpation: Normal - Cardiovascular Rhythm: Regular Heart sounds: Normal auscultation Murmur: No - Abdominal Inspection: Normal, Gravid female Distension: No distension Bowel sounds: Normal Tenderness: Nontender Organomegaly: No organomegaly - Back Back: Normal, Nontender - Extremities General upper extremity: Normal inspection, Nontender, Normal color, Normal ROM , Normal temperature General lower extremity: Normal inspection, Nontender, Normal color, Normal ROM , Normal temperature, Normal weight bearing. No: Adonis's sign - Neurological Neuro grossly intact: Yes Cognition: Normal Orientation: AAOx4 Cecil Coma Scale Eye Opening: Spontaneous Maciej Coma Scale Verbal: Oriented Cecil Coma Scale Motor: Obeys Commands Cecil Coma Scale Total: 15 Speech: Normal Motor strength normal: LUE, RUE, LLE, RLE Sensory: Normal - Psychological Associated symptoms: Normal affect, Normal mood - Skin Skin Temperature: Warm Skin Moisture: Dry Skin Color: Normal Course - Re-evaluation Re-evalutation: 02/13/18 12:05 The patient presents with abdominal pain without signs of peritonitis or other life-threatening or serious etiology. The patient appears stable for discharge and has been instructed to return immediately if the symptoms worsen in any way , or in 8-12hr if not improved for re-evaluation. The patient has been instructed to return if the symptoms worsen or change in any way. Ultrasounds not show any significant pathology. Patient is Rh- in the light having abdominal pain Rh- female we will go ahead and give the patient a dose of Reglan. Patient will also be be given prescriptions for vitamins Reglan for any nausea that she may incur and instructed to follow-up with her PCP. 02/13/18 13:01 Patient left the ER prior to my final evaluation and before receiving her discharge instructions and the RhoGam shot - Vital Signs Vital signs: Temp Pulse Resp BP Pulse Ox 98.0 F 76 15 113/60 100 02/13/18 09:33 02/13/18 09:33 02/13/18 09:33 02/13/18 09:33 02/13/18 09:33 - Laboratory Result Diagrams: 02/13/18 10:48 02/13/18 10:48 Laboratory results interpreted by me: 02/13/18 02/13/18 09:48 10:48 BUN 3 L Creatinine 0.43 L Beta HCG, Quant 11145.00 H Urine Urobilinogen 2.0 H Ur Leukocyte Esterase TRACE H Discharge - Discharge Clinical Impression: Qualifiers: Weeks of gestation: 19 weeks Qualified Code(s): Z3A.19 - 19 weeks gestation of Abdominal pain during Qualifiers: Trimester: second trimester Qualified Code(s): O26.892 - Other specified related conditions, second trimester Condition: Good Disposition: HOME, SELF-CARE Instructions: Pelvic Pain in and Round Ligament Pain ([facility]), [facility] ( [facility] Additional Instructions: Your ultrasound does not reveal any critical pathology today to explain your abdominal pain. Your laboratory studies urinalysis also did not show any critical pathology to explain your pain no infection no signs of any electrolyte abnormalities. Do believe your more likely experiencing round ligament pain. Will recommend taking Tylenol for your pain control make sure that she stay well-hydrated as well. SHe may take Reglan as prescribed for any nausea that she may incur. Below will also be information about over-the- counter nausea medication that he can use during . Highly recommend she follow-up with your [facility]. Your Rh- we did give you a RhoGam shot today. You have been seen for vomiting during . You should continue to drink plenty of water and consider taking a solution such as Pedialyte if your having difficulty eating food. Please return if you become unable to drink any fluids for more than 12 hours, urinate less than twice a day, pass out, or have any other symptoms that are concerning to you. For nausea and vomiting during I recomment: Start with 10-12.5 mg of pyridoxine (vitamin B6) three times a day for 2 days. If not fully effective, Increase to 12.5 mg of pyridoxine four times a day for 2 days. If not fully effective, Increase to 25 mg of pyridoxine three times a day for 2 days. If not fully effective, Continue 25 mg pyridoxine 3 times a day, and add 12.5 mg of doxylamine before bedtime each day for 2 days. If not fully effective, Continue 25 mg pyridoxine 3 times a day, and take 12.5 mg of doxylamine twice a day. If not fully effective, Continue 25 mg pyridoxine 3 times a day, and take 12.5 mg of doxylamine three times a day. If not fully effective, Continue 25 mg pyridoxine 3 times a day, and 12.5 mg of doxylamine 3 times a day , while adding Emetrol, one to two tablespoons (15-30 cc) taken once or twice a day as needed. (Emetrol is an [id number] mixture of sugar syrups and phosphoric acid [phosphorylated carbohydrate solution]) that acts by soothing the actual wall of the gastrointestinal tract). If not fully effective, Consult with your doctor. Prescriptions: Metoclopramide HCl [Reglan] 5 mg PO Q6 #30 tablet Prenat 115/Iron Fum/Folic/Dss [ 19 Tablet] 1 each PO DAILY #30 tablet Forms: Return to Work
== END 2018-02-13 12:59 | disposition left against medical advice (07) ==
LOC: ER 09:30
DX: O26.892 Other specified pregnancy related conditions, second trimester (principal); R10.30 Lower abdominal pain, unspecified; O99.332 Smoking (tobacco) complicating pregnancy, second trimester; Z3A.19 19 weeks gestation of pregnancy
CPT/HCPCS: 36415; 76805; 80048; 81001; 84702; 85025; 86850; 86900; 86901; 93976; 99284

== ENCOUNTER 2018-04-08 12:37 | Outpatient (CLI) | payer MEDICAID ==
--- NOTE | 2018-04-08 14:19 | Non Stress Test Report ---
Non Stress Test Datetime Report Generated by CPN: 04/08/2018 14:19 DEMOGRAPHIC EGA NST: 27.2 INDICATION Indication for Study: Ordered by Provider MONITORING Monitor Explained: Monitor Explained; Test Explained Time on Monitor: 04/08/2018 12:52 Time off Monitor: 04/08/2018 13:45 NST Duration: 53 NST INTERVENTIONS NST Interventions: PO Hydration; Reposition Patient Physician Notified NST: J. Parker, CNM BABY A: [id number] BABY A Movement : Present Contraction Frequency : None FHR Baseline : 135 Decelerations : None Variability : Moderate 6-25bpm NST Review: Appropriate for gestation NST Review and Verified By : Kathi Darby RN NST Results: approiate NST REPORT Report Trigger: Send Report
== END 2018-04-08 13:52 | disposition home or self-care (01) ==
LOC: LC 12:37
PROVIDERS: ATTEND Obstetrics & Gynecology
PROC: 4A1HXCZ Monitoring of Products of Conception, Cardiac Rate, External Approach (ICD-10-PCS; principal; 2018-04-08)
DX: O99.332 Smoking (tobacco) complicating pregnancy, second trimester (principal); F17.210 Nicotine dependence, cigarettes, uncomplicated; Z3A.27 27 weeks gestation of pregnancy

== ENCOUNTER 2018-05-08 19:03 | Emergency (ER) | payer MEDICAID, OTHER ==
[2018-05-08 19:08] VITALS: BP 133/77
--- NOTE | 2018-05-08 19:22 | ER Document Report ---
ED Medical Screen (RME) - General Chief Complaint: Hemorrhoids Stated Complaint: HEMMORHOID Time Seen by Provider: 05/08/18 19:21 Primary Care Provider: SAMMIE RAMOS MD [Primary Care Provider] - Follow up as needed Mode of Arrival: Ambulatory Information source: Patient TRAVEL OUTSIDE OF THE [place] IN LAST 30 DAYS: No - HPI Patient complains to provider of: hemorrhoids Onset: This morning - pt is approx 31 wks with c/o large hemorrhoids with bleeding - Related Data Allergies/Adverse Reactions: amoxicillin Allergy (Verified 04/28/17 07:59) codeine Allergy (Verified 04/28/17 07:59) ondansetron HCl [From Zofran] Allergy (Verified 04/28/17 07:59) Penicillins Allergy (Verified 04/28/17 07:59) Tetanus Vaccines and Toxoid [Tetanus] Allergy (Verified 04/28/17 07:59) Past Medical History - Social History Chew tobacco use (# tins/day): No Frequency of alcohol use: None Drug Abuse: Marijuana Renal/ Medical History: Reports: Hx Kidney Stones, Hx Ovarian Cysts, Hx Pelvic Inflammatory Disease. Denies: Hx Peritoneal Dialysis Musculoskeltal Medical History: Reports Hx Musculoskeletal Deformity, Reports Hx Musculoskeletal Trauma Psychiatric Medical History: Reports: Hx Anxiety, Hx Depression Past Surgical History: Reports: Hx Abdominal Surgery - removal of gallstone that was obstructing patient's bile duct, Hx Dilation and Curettage, Hx Gynecologic Surgery - D & C, Hx Oral Surgery - Immunizations Immunizations up to date: Yes Hx Diphtheria, Pertussis, Tetanus Vaccination: No - tetanus allergy History of Influenza Vaccine for 12/2016 - 05/2017 Season: No Physical Exam - Vital signs Vitals: Temp Pulse Resp BP Pulse Ox 98.4 F 91 18 133/77 H 96 05/08/18 19:06 05/08/18 19:06 05/08/18 19:06 05/08/18 19:06 05/08/18 19:06 Course - Vital Signs Vital signs: Temp Pulse Resp BP Pulse Ox 98.4 F 91 18 133/77 H 96 05/08/18 19:06 05/08/18 19:06 05/08/18 19:06 05/08/18 19:06 05/08/18 19:06 Doctor's Discharge - Discharge Referrals: SAMMIE RAMOS MD [Primary Care Provider] - Follow up as needed
[2018-05-08 19:39] LABS: ABSOLUTE BASOPHILS # (AUTO) 0.1 10^3/uL (0.0-0.2); ABSOLUTE EOSINOPHILS # (AUTO) 0.2 10^3/uL (0.0-0.6); ABSOLUTE LYMPHOCYTES (AUTO) 2.3 10^3/uL (0.5-4.7); ABSOLUTE MONOCYTES (AUTO) 0.9 10^3/uL (0.1-1.4); ABSOLUTE NEUT (AUTO) 7.8 10^3/uL (1.7-8.2); BASOPHILS % (AUTO) 0.6 % (0-2); EOSINOPHILS % (AUTO) 1.7 % (0-6); HEMATOCRIT 36.7 % (36.0-47.0); HEMOGLOBIN 12.6 g/dL (12.0-15.5); LYMPHOCYTES % (AUTO) 20.6 % (13-45); MEAN CORPUSCULAR HEMOGLOBIN 30.4 pg (27.0-33.4); MEAN CORPUSCULAR HGB CONC 34.4 g/dL (32.0-36.0); MEAN CORPUSCULAR VOLUME 89 fl (80-97); MONOCYTES % (AUTO) 7.8 % (3-13); PLATELET COUNT 277 10^3/uL (150-450); RED BLOOD COUNT 4.15 10^6/uL (3.72-5.28); RED CELL DISTRIBUTION WIDTH 11.8 % (11.5-14.0); SEGMENTED NEUTROPHILS % (AUTO) 69.3 % (42-78); TOTAL CELLS COUNTED % (AUTO) 100 %; WHITE BLOOD COUNT 11.2 10^3/uL (4.0-10.5)
[2018-05-08 19:56] LABS: ALANINE AMINOTRANSFERASE 250 U/L (9-52); ALBUMIN 3.3 g/dL (3.5-5.0); ALKALINE PHOSPHATASE 183 U/L (38-126); ANION GAP 5 (5-19); ASPARTATE AMINO TRANSFERASE 201 U/L (14-36); BILIRUBIN,DIRECT 0.3 mg/dL (0.0-0.4); BILIRUBIN,TOTAL 0.4 mg/dL (0.2-1.3); BLOOD UREA NITROGEN 2 mg/dL (7-20); CALCIUM 9.3 mg/dL (8.4-10.2); CARBON DIOXIDE 26 mmol/L (22-30); CHLORIDE 107 mmol/L (98-107); GLUCOSE 82 mg/dL (75-110); POTASSIUM 4.5 mmol/L (3.6-5.0); SODIUM 137.8 mmol/L (137-145); TOTAL PROTEIN 6.1 g/dL (6.3-8.2)
--- NOTE | 2018-05-08 20:49 | ER Document Report ---
ED General - General Chief Complaint: Hemorrhoids Stated Complaint: HEMMORHOID Time Seen by Provider: 05/08/18 19:21 Primary Care Provider: SAMMIE RAMOS MD [Primary Care Provider] - Follow up as needed Mode of Arrival: Ambulatory Information source: Patient TRAVEL OUTSIDE OF THE [place] IN LAST 30 DAYS: No - HPI Patient complains to provider of: Hemorrhoid Onset: Other - Noticed this today Quality of pain: Sharp Severity: Severe Associated symptoms: None Exacerbated by: Denies Relieved by: Denies Similar symptoms previously: No Recently seen / treated by doctor: No Notes: 32-year-old female who is 31 weeks presents with a hemorrhoid that started bothering her today. - Related Data Allergies/Adverse Reactions: amoxicillin Allergy (Verified 04/28/17 07:59) codeine Allergy (Verified 04/28/17 07:59) ondansetron HCl [From Zofran] Allergy (Verified 04/28/17 07:59) Penicillins Allergy (Verified 04/28/17 07:59) Tetanus Vaccines and Toxoid [Tetanus] Allergy (Verified 04/28/17 07:59) Past Medical History - General Information source: Patient - Social History Smoking Status: Never Smoker Chew tobacco use (# tins/day): No Frequency of alcohol use: None Drug Abuse: Marijuana Family History: CAD, COPD, DM, Hyperlipidemia, Thyroid Disfunction Patient has suicidal ideation: No Patient has homicidal ideation: No Renal/ Medical History: Reports: Hx Kidney Stones, Hx Ovarian Cysts, Hx Pelvic Inflammatory Disease. Denies: Hx Peritoneal Dialysis Musculoskeletal Medical History: Reports Hx Musculoskeletal Deformity, Reports Hx Musculoskeletal Trauma Psychiatric Medical History: Reports: Hx Anxiety, Hx Depression Past Surgical History: Reports: Hx Abdominal Surgery - removal of gallstone that was obstructing patient's bile duct, Hx Dilation and Curettage, Hx Gynecologic Surgery - D & C, Hx Oral Surgery - Immunizations Immunizations up to date: Yes Hx Diphtheria, Pertussis, Tetanus Vaccination: No - tetanus allergy Review of Systems - Review of Systems Notes: Constitutional: No fevers. No chills. EENT: No eye redness. No eye pain. No ear pain. No sore throat. Cardiovascular: No chest pain. No palpitations. Respiratory: No cough. No shortness of breath. No respiratory distress. Gastrointestinal: No abdominal pain. No nausea, vomiting, or diarrhea. Positive anal pain Genitourinary: Atraumatic. No lesions. No pain. No discharge. Musculoskeletal: Atraumatic. No swelling. No deformities. Skin: No rash or lesions. Lymphatic: No swollen lymph nodes. Neurologic: No headache. No syncope. Psychiatric: No suicidal or homicidal ideation. Physical Exam - Vital signs Vitals: Temp Pulse Resp BP Pulse Ox 98.4 F 91 18 133/77 H 96 05/08/18 19:06 05/08/18 19:06 05/08/18 19:06 05/08/18 19:06 05/08/18 19:06 - Notes Notes: General: Well-developed, well-nourished. In no acute distress. Non-toxic appearing. Cardiac: Well-perfused. Regular rate and rhythm. No murmurs, rubs, or gallops. Pulmonary: No respiratory distress. No cyanosis. Bilateral lung fiels are clear to auscultation. Abdominal: Non-distended. Non-rigid. Bowels sounds are present in all four quadrants. No guarding or rebound. Patient has what appears to be a thrombosed hemorrhoid to the 9 o'clock position. Tender to palpate. Firm consistency HEENT: Head is atraumatic. Conjunctivae not reddened. No tearing. PERRL. EOMI. Orbits atraumatic. No periorbital swelling or erythema. Oropharynx is without erythema, swelling, or exudates. Neck: Supple. No adenopathy. No meningismus. Dermatologic: Warm with good turgor. No rash. Atraumatic. Chest: Atraumatic. No chest wall tenderness to palpation. Musculoskeletal: Moves all extremities well. No range of motion deficits. no muscular or joint tenderness. No paraspinal muscle tenderness. no midline spinal tenderness or step-off. Genitourinary: Examination deferred Neurologic: No gross neurologic deficits. Psychiatric: Normal mood. Course - Re-evaluation Re-evalutation: 05/08/18 20:46 Probable thrombosed hemorrhoid. Offered lidocaine topical ointment. Offered injection of lidocaine and excision of the blood clots. Patient declined the procedure in favor of hydrocortisone suppositories. We will go ahead and give her prescription for those and have her follow-up with her OB - Vital Signs Vital signs: Temp Pulse Resp BP Pulse Ox 98.4 F 91 18 133/77 H 96 05/08/18 19:06 05/08/18 19:06 05/08/18 19:06 05/08/18 19:06 05/08/18 19:06 - Laboratory Result Diagrams: 05/08/18 19:27 05/08/18 19:27 Laboratory results interpreted by me: 05/08/18 05/08/18 19:27 19:27 WBC 11.2 H BUN 2 L Creatinine 0.46 L AST 201 H ALT 250 H Alkaline Phosphatase 183 H Total Protein 6.1 L Albumin 3.3 L Discharge - Discharge Clinical Impression: Thrombosed hemorrhoids Condition: Good Disposition: HOME, SELF-CARE Instructions: Hemorrhoids ([facility]) Additional Instructions: Is a suppositories as directed. Follow-up with your [facility] for further evaluati on Prescriptions: Hydrocortisone Acetate [Anusol-Hc] 25 mg RC TID 5 Days #15 supp.rect Referrals: SAMMIE RAMOS MD [Primary Care Provider] - Follow up as needed
== END 2018-05-08 21:34 | disposition home or self-care (01) ==
LOC: ER 19:03
DX: O22.43 Hemorrhoids in pregnancy, third trimester (principal); Z3A.31 31 weeks gestation of pregnancy; Z88.0 Allergy status to penicillin; Z88.6 Allergy status to analgesic agent; Z87.442 Personal history of urinary calculi
CPT/HCPCS: 36415; 80053; 85025; 99283

== ENCOUNTER 2018-05-14 03:47 | Emergency (ER) | payer OTHER, MEDICAID ==
[2018-05-14] MEDS ORDERED: PROMETHAZINE HCL INJ 25 MG/1 ML VIAL IM ONE (05:52)
--- NOTE | 2018-05-14 06:02 | ER Document Report ---
ED General - General Chief Complaint: Nausea Stated Complaint: NAUSEA Time Seen by Provider: 05/14/18 05:35 Primary Care Provider: SAMMIE RAMOS MD [Primary Care Provider] - Follow up as needed Notes: 32-year-old well-appearing 34-week female presents to the emergency department for nausea times 1 hour. She states she has been getting nauseated at night between 1 AM and 5 AM. She denies any vomiting. She states that she breaks out into a sweat. She says this is never happened to her before. She denies EtOH. She denies any fevers, chills, abdominal pain, diarrhea. Denies any urinary symptoms. She states she was prescribed Diclegis and Reglan but they did not work. She is allergic to Zofran. She has no other complaints. TRAVEL OUTSIDE OF THE [place] IN LAST 30 DAYS: No - Related Data Allergies/Adverse Reactions: amoxicillin Allergy (Verified 04/28/17 07:59) codeine Allergy (Verified 04/28/17 07:59) ondansetron HCl [From Zofran] Allergy (Verified 04/28/17 07:59) Penicillins Allergy (Verified 04/28/17 07:59) Tetanus Vaccines and Toxoid [Tetanus] Allergy (Verified 04/28/17 07:59) Past Medical History - Social History Smoking Status: Former Smoker Family History: CAD, COPD, DM, Hyperlipidemia, Thyroid Disfunction Renal/ Medical History: Reports: Hx Kidney Stones, Hx Ovarian Cysts, Hx Pelvic Inflammatory Disease. Denies: Hx Peritoneal Dialysis Musculoskeletal Medical History: Reports Hx Musculoskeletal Deformity, Reports Hx Musculoskeletal Trauma Psychiatric Medical History: Reports: Hx Anxiety, Hx Depression Past Surgical History: Reports: Hx Abdominal Surgery - removal of gallstone that was obstructing patient's bile duct, Hx Dilation and Curettage, Hx Gynecologic Surgery - D & C, Hx Oral Surgery - Immunizations Immunizations up to date: Yes Hx Diphtheria, Pertussis, Tetanus Vaccination: No - tetanus allergy Review of Systems - Review of Systems Constitutional: See HPI EENT: No symptoms reported Cardiovascular: See HPI Respiratory: See HPI Gastrointestinal: See HPI Genitourinary: See HPI Female Genitourinary: No symptoms reported Musculoskeletal: No symptoms reported Skin: No symptoms reported Hematologic/Lymphatic: No symptoms reported Neurological/Psychological: No symptoms reported Physical Exam - Vital signs Vitals: Temp Pulse Resp BP Pulse Ox 97.6 F 93 20 135/85 H 97 05/14/18 03:50 05/14/18 03:50 05/14/18 03:50 05/14/18 03:50 05/14/18 03:50 - Notes Notes: PHYSICAL EXAMINATION: Reviewed vital signs and charting by RN GENERAL: Alert, interacts well. No acute distress. HEAD: Normocephalic, atraumatic. EYES: Pupils equal, round. Extraocular movements intact. ENT: Oral mucosa moist NECK: Full range of motion. Supple. Trachea midline. LUNGS: Clear to auscultation bilaterally, no wheezes, rales, or rhonchi. No respiratory distress. HEART: Regular rate and rhythm. No murmur ABDOMEN: Gravid, soft, non-tender. Non-distended. Bowel sounds present in all 4 quadrants. EXTREMITIES: Moves all 4 extremities spontaneously. No edema, No cyanosis. PSYCH: Normal affect, normal mood. SKIN: Warm, dry, normal turgor. No rashes or lesions noted. Course - Re-evaluation Re-evalutation: 05/14/18 06:04 Overall well-appearing gravid female with associated nausea. I explained to her that this is common in third trimester and she has no underlying concerns, no evidence of urinary tract infection based on symptoms. 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 Patient will be given Phenergan 25 mg IM 1 time and discharge home. She agrees with the plan. I told her follow-up with her OB on Wednesday. - Vital Signs Vital signs: Temp Pulse Resp BP Pulse Ox 97.6 F 93 20 135/85 H 97 05/14/18 03:50 05/14/18 03:50 05/14/18 03:50 05/14/18 03:50 05/14/18 03:50 Discharge - Discharge Clinical Impression: Nausea and vomiting during Condition: Good Disposition: HOME, SELF-CARE Additional Instructions: You were seen in the emergency department this morning for nausea associated with your . 15-20% of women will have nausea associated with in the third trimester. You have been given a dose of Phenergan here in the ER. If you feel this works for you then follow-up with your [employer]PERVIS[employer] Raheem morning to discuss getting a prescription. You should continue to drink plenty of water and consider taking a solution such as Pedialyte if your having difficulty eating food. Please return if you become unable to drink any fluids for more than 12 hours, urinate less than twice a day, pass out, or have any other symptoms that are concerning to you. For nausea and vomiting during I recommend: Start with 10-12.5 mg of pyridoxine (vitamin B6) three times a day for 2 days. If not fully effective, Increase to 12.5 mg of pyridoxine four times a day for 2 days. If not fully effective, Increase to 25 mg of pyridoxine three times a day for 2 days. If not fully effective, Continue 25 mg pyridoxine 3 times a day, and add 12.5 mg of doxylamine before bedtime each day for 2 days. If not fully effective, Continue 25 mg pyridoxine 3 times a day, and take 12.5 mg of doxylamine twice a day. If not fully effective, Continue 25 mg pyridoxine 3 times a day, and take 12.5 mg of doxylamine three times a day. If not fully effective, Continue 25 mg pyridoxine 3 times a day, and 12.5 mg of doxylamine 3 times a day, while adding Emetrol, one to two tablespoons (15-30 cc) taken once or twice a day as needed. (Emetrol is an [id number] mixture of sugar syrups and phosphoric acid [phosphorylated carbohydrate solution]) that acts by soothing the actual wall of the gastrointestinal tract). If not fully effective, Consult with your doctor. Referrals: SAMMIE RAMOS MD [Primary Care Provider] - Follow up as needed
[2018-05-14 06:59] VITALS: BP 125/74
== END 2018-05-14 06:25 | disposition home or self-care (01) ==
LOC: ER 03:47
DX: O21.2 Late vomiting of pregnancy (principal); O26.893 Other specified pregnancy related conditions, third trimester; R61 Generalized hyperhidrosis; Z3A.34 34 weeks gestation of pregnancy; Z88.0 Allergy status to penicillin; Z88.5 Allergy status to narcotic agent; Z88.8 Allergy status to other drugs, medicaments and biological substances; Z88.7 Allergy status to serum and vaccine; Z87.891 Personal history of nicotine dependence
CPT/HCPCS: 99283; 96372; J2550

== ENCOUNTER → 2018-05-14 | Outpatient (CLI) | payer OTHER, MEDICAID | LOC: LC 03:43 | PROVIDERS: ATTEND Obstetrics & Gynecology | DX: Z53.9 Procedure and treatment not carried out, unspecified reason (principal) ==

== ENCOUNTER 2018-06-03 02:29 | Outpatient (CLI) | payer OTHER, MEDICAID ==
[2018-06-03] MEDS ORDERED: PROMETHAZINE HCL INJ 25 MG/1 ML VIAL IV ONE (03:17)
[2018-06-03] MEDS ORDERED: RINGERS SOLUTION,LACTATED 1,000 ML IV PRN (03:17)
[2018-06-03] MEDS ORDERED: PROMETHAZINE HCL INJ 25 MG/1 ML VIAL ONE (03:24)
[2018-06-03] MEDS ORDERED: MAG HYDROX/AL HYDROX/SIMETH SUSP 30 ML UDCUP ONE (03:44)
--- NOTE | 2018-06-03 04:47 | Non Stress Test Report ---
Non Stress Test Datetime Report Generated by CPN: 06/03/2018 04:47 DEMOGRAPHIC EGA NST: 35.2 INDICATION Indication for Study: Ordered by Provider MONITORING Time on Monitor: 06/03/2018 02:43 Time off Monitor: 06/03/2018 04:44 NST Duration: 121 NST INTERVENTIONS NST Interventions: IV Fluids Physician Notified NST: Dr Younger BABY A: [id number] BABY A Movement : Present Contraction Frequency : none FHR Baseline : 135 Accelerations : 15X15 Decelerations : None Variability : Moderate 6-25bpm NST Review: Meets Criteria for Reactive NST NST Review and Verified By : Miriam Barron RN NST Results: Reactive NST REPORT Report Trigger: Send Report
[2018-06-03 05:56] LABS: APPEARANCE,URINE CLOUDY; BILIRUBIN,URINE NEGATIVE (NEGATIVE); COLOR,URINE YELLOW; GLUCOSE, URINE NEGATIVE (NEGATIVE); KETONES,URINE NEGATIVE (NEGATIVE); LEUKOCYTE ESTERASE,URINE TRACE (NEGATIVE); NITRITE,URINE NEGATIVE (NEGATIVE); PROTEIN,URINE NEGATIVE (NEGATIVE); URINE SPECIFIC GRAVITY 1.005; UROBILINOGEN,URINE NEGATIVE mg/dL (<2.0)
[2018-06-03 06:03] LABS: URINE AMPHETAMINES SCREEN NEGATIVE; URINE BARBITURATES SCREEN NEGATIVE; URINE BENZODIAZEPINES SCREEN NEGATIVE; URINE COCAINE SCREEN NEGATIVE; URINE PHENCYCLIDINE SCREEN NEGATIVE
[2018-06-03 06:15] LABS: URINE MARIJUANA (THC) SCREEN UNCONFIRMED POSITIVE; URINE METHADONE SCREEN UNCONFIRMED POSITIVE
== END 2018-06-03 06:33 | disposition home or self-care (01) ==
LOC: LC 02:29
PROVIDERS: ATTEND Obstetrics & Gynecology
PROC: 4A1HXCZ Monitoring of Products of Conception, Cardiac Rate, External Approach (ICD-10-PCS; principal; 2018-06-03)
DX: O99.333 Smoking (tobacco) complicating pregnancy, third trimester (principal); F17.210 Nicotine dependence, cigarettes, uncomplicated; Z3A.35 35 weeks gestation of pregnancy
CPT/HCPCS: 59025 ×2; 81001; 80307; G0480 ×2; J2550; 80349

== ENCOUNTER 2018-07-09 02:16 | Emergency (ER) | payer OTHER, MEDICAID ==
[2018-07-09 02:24] VITALS: BP 129/83
== END 2018-07-09 03:20 | disposition left against medical advice (07) ==
LOC: ER 02:16
DX: Z53.21 Procedure and treatment not carried out due to patient leaving prior to being seen by health care provider (principal)

== ENCOUNTER 2018-09-27 08:44 | Emergency (ER) | payer OTHER, MEDICAID ==
[2018-09-27 08:52] VITALS: BP 134/87
--- NOTE | 2018-09-27 09:03 | ER Document Report ---
ED General - General Chief Complaint: Swollen Glands Stated Complaint: SWOLLEN LYMPH NODE Time Seen by Provider: 09/27/18 08:56 Notes: 32-year-old female with a history of hepatitis C presents with a swollen lymph node in the angle of her jaw. Patient complains of some aching pain with that. Worse with moving her jaw touching the area. She denies any fever chills or sore throat denies nausea vomiting denies chest pain or abdominal pain. Patient pain is mild to moderate is worse when she touches it becomes severe. TRAVEL OUTSIDE OF THE [place] IN LAST 30 DAYS: No - Related Data Allergies/Adverse Reactions: amoxicillin Allergy (Verified 09/27/18 08:46) codeine Allergy (Verified 09/27/18 08:46) ondansetron HCl [From Zofran] Allergy (Verified 09/27/18 08:46) Penicillins Allergy (Verified 09/27/18 08:46) Tetanus Vaccines and Toxoid [Tetanus] Allergy (Verified 09/27/18 08:46) Past Medical History - Social History Smoking Status: Current Every Day Smoker Family History: CAD, COPD, DM, Hyperlipidemia, Thyroid Disfunction Renal/ Medical History: Reports: Hx Kidney Stones, Hx Ovarian Cysts, Hx Pelvic Inflammatory Disease. Denies: Hx Peritoneal Dialysis Musculoskeletal Medical History: Reports Hx Musculoskeletal Deformity, Reports Hx Musculoskeletal Trauma Psychiatric Medical History: Reports: Hx Anxiety, Hx Depression Past Surgical History: Reports: Hx Abdominal Surgery - removal of gallstone that was obstructing patient's bile duct, Hx Dilation and Curettage, Hx Gynecologic Surgery - D & C, Hx Oral Surgery, Other - ERCP - Immunizations Immunizations up to date: Yes Hx Diphtheria, Pertussis, Tetanus Vaccination: No - tetanus allergy Review of Systems - Review of Systems Constitutional: denies: Chills, Fever EENT: Other - Neck gland swelling 2 days. denies: Throat pain, Throat swelling Cardiovascular: No symptoms reported Respiratory: No symptoms reported Gastrointestinal: No symptoms reported Neurological/Psychological: denies: Headaches -: Yes All other systems reviewed and negative Physical Exam - Vital signs Vitals: Temp Pulse Resp BP Pulse Ox 97.7 F 79 16 134/87 H 99 09/27/18 08:51 09/27/18 08:51 09/27/18 08:51 09/27/18 08:51 09/27/18 08:51 - Notes Notes: GENERAL_APPEARANCE: well_nourished, alert, cooperative, no_acute_distress, no_obvious_discomfort. VITALS: reviewed, see vital signs table. HEAD: no_swelling\tenderness on the head. EYES: PERRL, EOMI, conjunctiva_clear. NOSE: no_nasal_discharge. MOUTH: (-)decreased moisture. THROAT: no_tonsilar_inflammation, no_airway_obstruction. Slightly lymph node right anterior cervical chain_lymphadenopathy, no redness or heat in the area no fluctuance SKIN: warm, dry, good_color, no_rash. MENTAL_STATUS: speech_clear, oriented_X_3, normal_affect, responds_appropr iately to questions. Course - Re-evaluation Re-evalutation: 09/27/18 09:01 32-year-old female presents with isolated lymph node right anterior cervical chain of the jaw there is no redness no heat no fluctuance no induration in the area. The isolated lymph node. Treat the patient with some prophylactic antibiotics otherwise is no internal throat findings. There is symmetric uvula. No drooling no stridor noted. Clear malum potty two airway. - Vital Signs Vital signs: Temp Pulse Resp BP Pulse Ox 97.7 F 79 16 134/87 H 99 09/27/18 08:51 09/27/18 08:51 09/27/18 08:51 09/27/18 08:51 09/27/18 08:51 Discharge - Discharge Clinical Impression: Lymphadenopathy of head and neck Condition: Good Disposition: HOME, SELF-CARE Instructions: Lymphadenopathy ([facility]) Prescriptions: Cephalexin Monohydrate [Keflex 500 mg Capsule] 500 mg PO Q8H 5 Days #21 capsule
== END 2018-09-27 09:13 | disposition home or self-care (01) ==
LOC: ER 08:44
DX: R59.0 Localized enlarged lymph nodes (principal); F17.200 Nicotine dependence, unspecified, uncomplicated; Z86.19 Personal history of other infectious and parasitic diseases; Z88.0 Allergy status to penicillin; Z88.5 Allergy status to narcotic agent; Z88.8 Allergy status to other drugs, medicaments and biological substances; Z88.7 Allergy status to serum and vaccine
CPT/HCPCS: 99283

== ENCOUNTER 2018-12-18 17:08 | Emergency (ER) | payer MEDICAID ==
[2018-12-18 17:13] VITALS: BP 132/80
--- NOTE | 2018-12-18 17:22 | ER Document Report ---
ED Medical Screen (RME) - General Chief Complaint: Cough Stated Complaint: COUGH Time Seen by Provider: 12/18/18 17:19 Primary Care Provider: HOPE ESPITIA MD [Primary Care Provider] - Follow up as needed Information source: Patient Notes: Patient complains of cough for the past 4 days that is occasionally productive. Patient reports low-grade fever at home. Patient has had recent sick contacts in the household. I have greeted and performed a rapid initial assessment of this patient. A comprehensive ED assessment and evaluation of the patient, analysis of test results and completion of the medical decision making process will be conducted by additional ED providers. TRAVEL OUTSIDE OF THE [place] IN LAST 30 DAYS: No - Related Data Allergies/Adverse Reactions: amoxicillin Allergy (Verified 12/18/18 17:18) codeine Allergy (Verified 12/18/18 17:18) ondansetron HCl [From Zofran] Allergy (Verified 12/18/18 17:18) Penicillins Allergy (Verified 12/18/18 17:18) Tetanus Vaccines and Toxoid [Tetanus] Allergy (Verified 12/18/18 17:18) Past Medical History - Social History Chew tobacco use (# tins/day): No Frequency of alcohol use: None Drug Abuse: None Renal/ Medical History: Reports: Hx Kidney Stones, Hx Ovarian Cysts, Hx Pelvic Inflammatory Disease. Denies: Hx Peritoneal Dialysis Musculoskeltal Medical History: Reports Hx Musculoskeletal Deformity, Reports Hx Musculoskeletal Trauma Psychiatric Medical History: Reports: Hx Anxiety, Hx Depression Past Surgical History: Reports: Hx Abdominal Surgery - removal of gallstone that was obstructing patient's bile duct, Hx Dilation and Curettage, Hx Gynecologic Surgery - D & C, Hx Oral Surgery, Other - ERCP - Immunizations Immunizations up to date: Yes Hx Diphtheria, Pertussis, Tetanus Vaccination: No - tetanus allergy Physical Exam - Vital signs Vitals: Temp Pulse Resp BP Pulse Ox 99.6 F 94 16 132/80 H 97 12/18/18 17:12 12/18/18 17:12 12/18/18 17:12 12/18/18 17:12 12/18/18 17:12 - Respiratory Respiratory status: No respiratory distress Chest status: Pain with cough Breath sounds: Nonproductive cough Course - Vital Signs Vital signs: Temp Pulse Resp BP Pulse Ox 99.6 F 94 16 132/80 H 97 12/18/18 17:12 12/18/18 17:12 12/18/18 17:12 12/18/18 17:12 12/18/18 17:12 Doctor's Discharge - Discharge Referrals: HOPE ESPITIA MD [Primary Care Provider] - Follow up as needed
--- NOTE | 2018-12-18 17:45 | RADIOLOGY REPORT (SQ) ---
EXAM DESCRIPTION: CHEST 2 VIEWS COMPLETED DATE/TIME: 12/18/2018 5:36 pm REASON FOR STUDY: cough COMPARISON: None. EXAM PARAMETERS: NUMBER OF VIEWS: two views TECHNIQUE: Digital Frontal and Lateral radiographic views of the chest acquired. RADIATION DOSE: NA LIMITATIONS: none FINDINGS: LUNGS AND PLEURA: No opacities, masses or pneumothorax. No pleural effusion. MEDIASTINUM AND HILAR STRUCTURES: No masses or contour abnormalities. HEART AND VASCULAR STRUCTURES: Heart normal size. No evidence for failure. BONES: No acute findings. HARDWARE: None in the chest. OTHER: No other significant finding. IMPRESSION: NO ACUTE RADIOGRAPHIC FINDING IN THE CHEST. TECHNICAL DOCUMENTATION: JOB ID: [id number] [employer]- All Rights Reserved Reading location - IP/workstation name: [email or web address]
--- NOTE | 2018-12-18 18:01 | ER Document Report ---
HPI - HPI Time Seen by Provider: 12/18/18 17:19 Pain Level: 2 Notes: Patient is a 33-year-old female with a history of hepatitis C who presents complaining nasal congestion/discharge, postnasal drip, dry cough that has become somewhat productive over the last day x4 days. She is able to eat and drink without difficulty. She is urinating normally and having normal bowel movements. She has no other concerns or complaints. Denies any headache, fever, neck pain, changes in vision/speech/mentation/hearing, sore throat, chest pain, palpitations, syncope, shortness of breath, wheeze, dyspnea, abdominal pain, nausea/vomiting/diarrhea, urinary retention, dysuria, hematuria, or rash. - ROS Systems Reviewed and Negative: Yes All other systems reviewed and negative - CONSTITUTIONAL Constitutional: DENIES: Fever, Chills - EENT EENT: REPORTS: Ear Pain. DENIES: Sore Throat, Eye problems - NEURO Neurology: REPORTS: Headache. DENIES: Weakness, Vision blurred, Dizzinesss / Vertigo - CARDIOVASCULAR Cardiovascular: DENIES: Chest pain - RESPIRATORY Respiratory: REPORTS: Coughing. DENIES: Trouble Breathing - GASTROINTESTINAL Gastrointestinal: DENIES: Abdominal Pain, Black / Bloody Stools - URINARY Urinary: DENIES: Dysuria, Urgency, Frequency - REPRODUCTIVE Reproductive: DENIES: : - MUSCULOSKELETAL Musculoskeletal: DENIES: Extremity pain Past Medical History - General Information source: Patient - Social History Smoking Status: Current Every Day Smoker Chew tobacco use (# tins/day): No Frequency of alcohol use: None Drug Abuse: None Family History: CAD, COPD, DM, Hyperlipidemia, Thyroid Disfunction Patient has suicidal ideation: No Patient has homicidal ideation: No Renal/ Medical History: Reports: Hx Kidney Stones, Hx Ovarian Cysts, Hx Pelvic Inflammatory Disease. Denies: Hx Peritoneal Dialysis Musculoskeletal Medical History: Reports Hx Musculoskeletal Deformity, Reports Hx Musculoskeletal Trauma Psychiatric Medical History: Reports: Hx Anxiety, Hx Depression Past Surgical History: Reports: Hx Abdominal Surgery - removal of gallstone that was obstructing patient's bile duct, Hx Dilation and Curettage, Hx Gynecologic Surgery - D & C, Hx Oral Surgery, Other - ERCP - Immunizations Immunizations up to date: Yes Hx Diphtheria, Pertussis, Tetanus Vaccination: No - tetanus allergy Vertical Provider Document - CONSTITUTIONAL Agree With Documented VS: Yes Notes: PHYSICAL EXAMINATION: GENERAL: Well-appearing, well-nourished and in no acute distress. A&Ox4. Answers questions appropriately. Moves comfortably w/o notable distress HEAD: Atraumatic, normocephalic. EYES: Pupils equal round and reactive to light, extraocular movements intact, sclera anicteric, conjunctiva are normal. ENT: EAC clear b/l. TM's intact b/l without erythema, fluid, or perforation. Nares patent and with clear discharge. oropharynx no erythema without exudates. No tonsilar hypertrophy without erythema or exudate. No palatine shift. Uvula midline. No tongue protrusion. No drooling, hoarseness, or airway compromise. Moist mucous membranes. No sinus tenderness. NECK: Normal range of motion, supple without lymphadenopathy. No rigidity/men ingismus. LUNGS: Breath sounds clear to auscultation bilaterally and equal. No wheezes rales or rhonchi. No retractions HEART: Regular rate and rhythm without murmurs, rubs, gallops. ABDOMEN: Soft, nontender, nondistended abdomen. No guarding, no rebound. Normal bowel sounds present. No CVA tenderness bilaterally. NEUROLOGICAL: Normal speech, normal gait. PSYCH: Normal mood, normal affect. SKIN: Warm, Dry, normal turgor, no rashes or lesions noted. - INFECTION CONTROL TRAVEL OUTSIDE OF THE [place] IN LAST 30 DAYS: No Course - Re-evaluation Re-evalutation: 12/18/18 18:00 Patient is an afebrile, well-hydrated, 33-year-old male who presents to the emergency department with an acute URI, suspect viral. Vitals are acceptable without significant tachycardia, tachypnea, or hypoxia. PE is otherwise unremarkable. She is nontoxic-appearing and is tolerating p.o. without diffic ulty. Lungs are clear to auscultation bilaterally. No further labs or imaging warranted at this time. Low suspicion for any meningitis, sepsis, peritonsillar/pharyngeal abscess, respiratory compromise, Dayday's, or other emergent systemic condition at this time. Patient is aware this condition can change from initial presentation and she needs to monitor symptoms closely. Conservative measures otherwise for symptoms. Recheck with your PCM in 3-5 days. Return to the ED with any worsening/concerning symptoms otherwise as reviewed in discharge. Patient is in agreement. - Vital Signs Vital signs: Temp Pulse Resp BP Pulse Ox 99.6 F 94 16 132/80 H 97 12/18/18 17:12 12/18/18 17:12 12/18/18 17:12 12/18/18 17:12 12/18/18 17:12 Discharge - Discharge Clinical Impression: Acute URI Condition: Stable Disposition: HOME, SELF-CARE Instructions: Upper Respiratory Illness ([facility]) Additional Instructions: Maintain adequate fluid intake tylenol/ibuprofen as needed alternating every 3 hours for fever/body ache over the counter cold medication as needed for symptoms Humidified air may help Wash your hands regularly Wear a mask when coughing F/u: with your PCM in 3-5 days for a recheck Return to the ED with any fever, altered mental status/behavior, chest pain, palpitations, syncope, headache, neck pain/stiffness, shortness of breath, chest pains, wheezing, drooling, trouble swallowing/breathing, abdominal pain, n/v/d, rash, or worsening/concerning symptoms otherwise. Forms: Elevated Blood Pressure, Smoking Cessation Education Referrals: HOPE ESPITIA MD [Primary Care Provider] - Follow up as needed
== END 2018-12-18 18:04 | disposition home or self-care (01) ==
LOC: ER 17:08
DX: J06.9 Acute upper respiratory infection, unspecified (principal); R09.81 Nasal congestion; R09.82 Postnasal drip; R05 Cough; H92.09 Otalgia, unspecified ear; R51 Headache; F17.200 Nicotine dependence, unspecified, uncomplicated
CPT/HCPCS: 71046; 99283

== ENCOUNTER → 2018-12-30 | Outpatient (CLI) | payer MEDICAID ==
--- NOTE | 2018-12-30 08:35 | WOMENS IMAGING REPORT ---
EXAM DESCRIPTION: U/S ABDOMEN LIMITED COMPLETED DATE/TIME: 12/30/2018 7:33 am REASON FOR STUDY: B18.2 B18.2 CHRONIC VIRAL HEPATITIS C COMPARISON: None. TECHNIQUE: Dynamic and static grayscale images acquired of the abdomen and recorded on PACS. Additio nal selected color Doppler and spectral images recorded. LIMITATIONS: None. FINDINGS: PANCREAS: No abnormality of the pancreas. LIVER: Normal contour and echotexture. LIVER VASCULATURE: Normal directional flow of the main portal vein and hepatic veins. GALLBLADDER: The gallbladder wall measures 2 mm in thickness. There is no cholelithiasis, sludge, or pericholecystic fluid. ULTRASOUND-DETECTED PLUMMER'S SIGN: Negative. INTRAHEPATIC DUCTS AND COMMON DUCT: The common bile duct measures 4.3 mm in diameter. There is no di latation of the intrahepatic biliary ducts. INFERIOR VENA CAVA: Normal flow. AORTA: No aneurysm. RIGHT KIDNEY: The right kidney measures 12.9 cm in length. There is no hydronephrosis. PERITONEAL AND RIGHT PLEURAL SPACE: No ascites or effusions. OTHER: No other findings. IMPRESSION: Normal sonogram of the right upper quadrant. TECHNICAL DOCUMENTATION: JOB ID: [id number] [email or web address]- All Rights Reserved Reading location - IP/workstation name: [email or web address]
== END ==
LOC: WI 07:37
PROVIDERS: ATTEND Internal Medicine Gastroenterology
DX: B18.2 Chronic viral hepatitis C (principal)
CPT/HCPCS: 76705

== ENCOUNTER 2020-01-07 07:02 | Emergency (ER) | payer MEDICAID ==
[2020-01-07 07:15] VITALS: BP 120/78
--- NOTE | 2020-01-07 08:39 | ER Document Report ---
HPI - HPI Time Seen by Provider: 01/07/20 08:09 Pain Level: Denies Context: Patient is a 34-year-old female presents emergency department with a chief complaint of runny nose. Mother reports that her child has similar symptoms. She denies a history of allergies. States that besides the runny nose and nasal congestion she is not having any other symptoms such as shortness of breath, fever, cough. She states she does have a chronic cough as she is a smoker. She states that she has a normal appetite without nausea, vomiting or diarrhea. Denies rash. States that she lives with a another child that also has similar symptoms. Denies concern for Covid. - CONSTITUTIONAL Constitutional: DENIES: Fever, Chills - REPRODUCTIVE Reproductive: DENIES: : Past Medical History - General Information source: Patient - Social History Smoking Status: Current Every Day Smoker Cigarette use (# per day): Yes Smoking Education Provided: Yes Lives with: Family Family History: CAD, COPD, DM, Hyperlipidemia, Thyroid Disfunction - Past Medical History Cardiac Medical History: Reports: None Pulmonary Medical History: Reports: None EENT Medical History: Reports: None Neurological Medical History: Reports: None Endocrine Medical History: Reports: None Renal/ Medical History: Reports: Hx Kidney Stones, Hx Ovarian Cysts, Hx Pelvic Inflammatory Disease. Denies: Hx Peritoneal Dialysis Malignancy Medical History: Reports: None GI Medical History: Reports: None Musculoskeletal Medical History: Reports Hx Musculoskeletal Deformity, Reports H x Musculoskeletal Trauma Skin Medical History: Reports None Psychiatric Medical History: Reports: Hx Anxiety, Hx Depression Traumatic Medical History: Reports: None Infectious Medical History: Reports: None Past Surgical History: Reports: Hx Abdominal Surgery - removal of gallstone that was obstructing patient's bile duct, Hx Dilation and Curettage, Hx Gynecologic Surgery - D & C, Hx Oral Surgery, Other - ERCP - Immunizations Immunizations up to date: Yes Hx Diphtheria, Pertussis, Tetanus Vaccination: No - tetanus allergy Vertical Provider Document - CONSTITUTIONAL Agree With Documented VS: Yes Exam Limitations: No Limitations General Appearance: No Apparent Distress - INFECTION CONTROL TRAVEL OUTSIDE OF THE [place] IN LAST 30 DAYS: No - HEENT HEENT: Atraumatic, Normal ENT Exam, Normocephalic, PERRLA - NECK Neck: Normal Inspection - RESPIRATORY Respiratory: Breath Sounds Normal, No Respiratory Distress - CARDIOVASCULAR Cardiovascular: Regular Rate, Regular Rhythm - GI/ABDOMEN Gastrointestinal: Abdomen Soft, Abdomen Non-Tender, Normal Bowel Sounds - MUSCULOSKELETAL/EXTREMETIES Musculoskeletal/Extremeties: FROM, Non-Tender, No Edema - NEURO Level of Consciousness: Awake, Alert, Appropriate - DERM Integumentary: Warm, Dry, No Rash Course - Re-evaluation Re-evalutation: 01/07/20 08:53 At this time the patient's symptoms are consistent with a viral illness. Continue Anamaria pot and nasal saline flushes, can incorporate Flonase. Tylenol and ibuprofen as needed. No indication for antibiotics at this time. Patient nontoxic-appearing. - Vital Signs Vital signs: Temp Pulse Resp BP Pulse Ox 98.5 F 109 H 20 120/78 99 01/07/20 07:15 01/07/20 07:15 01/07/20 07:15 01/07/20 07:15 01/07/20 07:15 Discharge - Discharge Clinical Impression: Nasal congestion, Runny nose Condition: Stable Disposition: HOME, SELF-CARE Additional Instructions: *Today are seen emergency department for runny nose. At this time her symptoms are consistent with a viral illness and do not require oral antibiotics. Please continue the do nasal suctioning, nasal saline flushes such as the Anamaria pot, Tylenol for headache. You can use [id number] nasal decongestions. I am giving you Flonase which is a nasal steroid. Please use this as prescribed. Please return the emergency department if symptoms worsen or change. UPPER RESPIRATORY ILLNESS: You have a viral infection of the respiratory passages -- a "cold." This common infection causes nasal congestion, drainage, and often sore throat and cough. It is highly contagious. The disease usually lasts about 10 to 14 days. There is no "cure" for the viral infection -- it must run its course. If there is a complication, such as bacterial infection in the nose, sinuses, middle ear, or bronchial tubes, antibiotics may be required. The antibiotics won't affect the virus. Drink plenty of fluids. A humidifier may help. An expectorant medication or decongestant may make you more comfortable. Use acetaminophen or ibuprofen for fever or aches. See the doctor if fever persists over two days, if there is any significant worsening of your symptoms, or if you simply fail to improve as expected. SMOKING: If you smoke, you should stop smoking. The tar and chemicals in cigarette smoke are harmful. Smoking has been shown to cause: emphysema chronic bronchitis lung cancer mouth and throat cancer stomach and pancreas cancer premature aging defects In addition, smoking increases ear and lung infections in children of smokers. FOLLOW-UP CARE: If you have been referred to a physician for follow-up care, call the physicians office for an appointment as you were instructed or within the next two days. If you experience worsening or a significant change in your symptoms, notify the physician immediately or return to the Emergency Department at any time for re-evaluation. Prescriptions: Fluticasone Propionate [Flonase Nasal [place] 50 Mcg/[place] 16 gm] 1 spray NASL Q12 #1 inhaler Forms: Smoking Cessation Education
== END 2020-01-07 08:48 | disposition home or self-care (01) ==
LOC: ER 07:02
DX: R09.81 Nasal congestion (principal); J34.89 Other specified disorders of nose and nasal sinuses; R11.2 Nausea with vomiting, unspecified; R19.7 Diarrhea, unspecified; F17.210 Nicotine dependence, cigarettes, uncomplicated; Z87.442 Personal history of urinary calculi
CPT/HCPCS: 99282